=== PATIENT | male | born 1940 | race Caucasian/White ===

== ENCOUNTER 2019-10-31 20:21 | Inpatient (IN) ==
[2019-10-31] MEDS ORDERED: NITROGLYCERIN SL 0.4 MG/TAB TAB SL PRN (23:33)
[2019-10-31] MEDS ORDERED: POLYETHYLENE (MIRALAX) 17 GM PACK PO PRN (23:33)
[2019-10-31] MEDS ORDERED: ACETAMINOPHEN 325 MG TAB PO PRN (23:33)
[2019-10-31] MEDS ORDERED: ONDANSETRON INJ 2 MG/ML 2 ML VIAL IV PRN (23:33)
[2019-10-31] MEDS ORDERED: MoRPHine SULFATE 4 MG/ML 1 ML CARP\\VIAL IV PRN (23:33)
[2019-10-31] MEDS ORDERED: HYDROCODONE/ACETAMOPHEN 5/325MG TAB PO PRN (23:37)
[2019-10-31] MEDS ORDERED: GLUCOSE 40% GEL 15 GM TUBE PO PRN (23:45)
[2019-10-31] MEDS ORDERED: CARBOHYDRATES FOR HYPOGLYCEMIA PO PRN (23:45)
[2019-10-31] MEDS ORDERED: DEXTROSE 50% 50 ML SYRINGE IV PRN (23:45)
[2019-10-31] MEDS ORDERED: GLUCAGON FOR INJ 1 MG VIAL IM PRN (23:45)
[2019-10-31] MEDS ORDERED: GLUCOSE 10 TABS/TUBE PO PRN (23:45)
[2019-10-31] MEDS: HYDROmorphone INJ 0.5 MG/0.5 ML SYR IV PRN (23:48)
[2019-11-01] MEDS ORDERED: LABETALOL HCL IV 5 MG/ML 20ML IV PRN (00:07)
[2019-11-01] MEDS: INSULIN GLARGINE SOLOSTAR 100 UNITS/ML 3 ML PEN SC SCH ×2 (00:11→21:08)
[2019-11-01] MEDS: INSULIN ASPART 100 UNITS/ML 3 ML PEN SC SCH ×5 (00:12→21:09)
--- NOTE | 2019-11-01 03:06 | History and Physical Report ---
DATE OF ADMISSION: 10/31/2019 CHIEF COMPLAINT: Chest pain. HISTORY OF PRESENT ILLNESS: This 79-year-old male with past medical history significant for type 2 diabetes, hyperlipidemia, hypertension, prostate cancer metastatic to multiple sites, chronic kidney disease stage III, carpal tunnel syndrome of the right wrist presents with chest pain. The patient says he is having chest pain, all over his chest, since last 3-4 days, the pain is more on movements or when taking deep breaths or on coughing and sometimes he is also having some pins and needles sensation in his left hand which prompted him to go to [place] [facility] where workup with EKG is unremarkable. Troponin was negative. His D-dimer was slightly elevated and they did a CTA of the chest which shows no PE, but showed extensive blastic bony metastasis and was planned to admit for chest pain rule out but the patient wanted to come to [facility], so he was transferred here. Currently resting comfortably. Says the pain comes and goes. When it comes it is very severe, it shoots into the back of the chest. When he ambulates, the pain does not get worse.But when he takes deep breaths or coughs,or on specific movements it gets worse. Denies nausea. When the pain is severe, he gets some shortness of breath. He denies any no fever,or chills. Because of his chemo shots for his prostate cancer, he gets sometimes sweating and sometimes feels cold, that is a chronic thing.He has chronic tinnitus. No dizziness, no blurred vision, no earache, no runny nose, no sore throat, no loss of sense of smell or taste. No abdominal pain, No nausea, no diarrhea or constipation, no blood in the stool or black stools. Normal bladder movements. No hematuria. No swelling in the legs, no rash. Sleeps okay. Lives with his who has dementia. He says he takes care of all her medication and all the care of his . ALLERGIES: No known drug allergies. PAST MEDICAL HISTORY: As mentioned above. PAST SURGICAL HISTORY: Carpal tunnel surgery on the right side. MEDICATIONS: Currently the patient is on hydrocodone/acetaminophen 5/325 mg one tablet p.o. q. 6 hours p.r.n., metformin 1000 mg p.o. b.i.d., atorvastatin 40 mg p.o. daily, glimepiride 2 mg p.o. daily, denosumab administered 120 mg subcutaneous every 3 months, calcium plus vitamin D 1 tablet daily, multivitamins with minerals 1 tablet daily, aspirin enteric coated 81 mg p.o. daily. FAMILY HISTORY: Significant for mother of accident. Father in an accident. Sister has diabetes, aunt has diabetes. SOCIAL HISTORY: and lives with his . Former smoker, quit in 1984. Prior to this, smoked 3 packs a day for 22 years. Quit alcohol in 1984. No drug use. REVIEW OF SYMPTOMS: As per HPI. Rest of review of symptoms negative. PHYSICAL EXAMINATION: GENERAL: The patient is of moderate build, not in acute distress. HEENT: No pallor, no icterus. Extraocular muscles intact. NECK: No JVD, no neck masses. Supple. CARDIOVASCULAR: S1, S2 heard, regular rate and rhythm, no murmur, no gallop.No tenderness RESPIRATORY SYSTEM: Normal AP diameter. No accessory muscle use. No wheezing, no crackles. ABDOMEN: No point tenderness seen. Soft, bowel sounds present, nontender. No distention. CENTRAL NERVOUS SYSTEM: Cranial nerves II through XII grossly intact, nonfocal. EXTREMITIES: No edema, no erythema. LABORATORY DATA: Labs done at [facility] shows WBC 8.2, hemoglobin 11.3, hematocrit 34.8, platelets 289. PT 13.7, INR 1.1, PTT 69.9. D-dimer 657. Sodium 139, potassium 4.8, chloride 106, bicarb 24, creatinine 1.38, serum glucose 76, AST 53, ALT 38, alkaline phosphatase 72. Troponin I less than 0.015. Chest x-ray: No acute findings. CTA of the chest, no evidence of pulmonary embolism, extensive blastic bony metastasis, renal cyst. EKG: Normal sinus rhythm with rate of 80, no acute ST changes seen. QTC was 391. ASSESSMENT AND PLAN: This is a 79-year-old male with history of diabetes, hyperlipidemia with metastatic prostate cancer, presents with chest pain. 1. Chest pain: The pain is more with taking deep breath, and movements and cough. Initial troponin and EKG unremarkable. D-dimer is slightly elevated. CTA of chest, no PE, but shows extensive blastic bony metastasis mostly from the metastatic bone disease from prostate cancer. He is at home on hydrocodone/acetaminophen, which he will continue, we will placed on IV Dilaudid p.r.n. He also has some discomfort in his left hand. We will rule out acute coronary syndrome because of history of diabetes and hyperlipidemia and his age. Will do serial cardiac enzymes, echo, will keep him n.p.o. and consult cardiology in a.m. for further recommendations. 2. Diabetes. Hold his home medication, metformin and glimepiride. Place him on Lantus 5 units at bedtime and insulin sliding scale. Follow the blood sugars, follow HbA1c levels. 3. Hyperlipidemia. Continue statin. Follow lipid profile. 4. Prostate cancer: On Lupron shots q. 6 months and on Xgeva shots every 3 months. Follows with hematology/oncology and also urology. Needs close followup after discharge. 5. Hypertension. Situational? from pain? Labetalol prn and monitor. 5. Deep venous thrombosis prophylaxis: Sequential compression devices for now. 6. Disposition: Closely monitor in the med/tele. Expect discharge home and follow with family doctor. Level 1 full code. MTDD
--- NOTE | 2019-11-01 04:42 | Hospitalist Progress Note ---
Date of Service November 01, 2019 Assessment & Plan Admission and Anticipated Discharge Date Admission Date: October 31, 2019 Subjective Addendum to A/P Anemia; Baseline hb around 10. . Will follow labs CKD stage 3. Baseline Cr 1.5. Will follow labs. Results & Data Results & Data ([facility]) Vital Signs (Past 12 Hours) Vital Signs Temp Pulse Pulse Resp BP Pulse Ox 11/01/19 02:55 36.7 C 76 18 119/76 97 11/01/19 00:28 76 152/81 H 10/31/19 23:25 36.8 C 85 221/112 H 97 10/31/19 23:03 93 H 10/31/19 22:23 37.1 C 83 18 185/96 H 97
[2019-11-01 05:40] LABS: Basophils # (auto) 0.01 K/uL (0-0.2); Basophils % (auto) 0.2 %; Eosinophils # (auto) 0.26 K/uL (0-0.5); Eosinophils % (auto) 4.4 %; Hematocrit (blood only) 31.4 % (42-52); Hemoglobin 10.2 g/dL (14.0-18.0); Immature Granulocytes # (auto) 0.01 K/uL (0.00-0.02); Immature Granulocytes % (auto) 0.2 %; Lymphocytes # (auto) 1.64 K/uL (1.2-3.4); Mean Corpuscular Hgb Conc 32.5 g/dL (32-36); Mean Corpuscular Volume 89.2 fL (80-100); Mean Platelet Volume 10.2 fL (7.4-10.4); Monocytes # (auto) 0.63 K/uL (0.11-0.59); Monocytes % (auto) 10.8 %; Neutrophils # (auto) 3.31 K/uL (1.4-6.5); Neutrophils % (auto) 56.4 %; Platelet Count 275 K/uL (130-400); RDW Coefficient of Variation 15.4 % (11.5-14.5); RDW Standard Deviation 50.2 fL (36.4-46.3); Red Blood Count 3.52 M/uL (4.7-6.1); White Blood Count 5.86 K/uL (4.8-10.8)
[2019-11-01 06:01] LABS: INR 1.1 (0.9-1.1); Partial Thromboplastin Ratio 1.8; Prothrombin Time 11.5 Seconds (9.0-12.0)
[2019-11-01 06:09] LABS: Estimated Average Glucose 131 mg/dl; Hemoglobin A1C 6.2 % (4.5-5.6)
[2019-11-01 06:20] LABS: Albumin Level 3.4 gm/dl (3.4-5.0); BUN Creatinine Ratio 24.4 (10-20); Bilirubin,Total 0.2 mg/dl (0.2-1); Calcium 9.1 mg/dl (8.5-10.1); Creatinine Clr Calc Pharmacy 43.8 ml/min; Est GFR (African American) 60.6; Est GFR (Non-African American) 52.3; Magnesium 2.1 mg/dl (1.8-2.4); Potassium 4.4 mmol/L (3.5-5.1); Total Protein 6.9 gm/dl (6.4-8.2)
[2019-11-01] MEDS: ASPIRIN 81 MG ECTAB PO SCH (07:54)
[2019-11-01] MEDS: ATORVASTATIN 40 MG TAB PO SCH (07:54)
--- NOTE | 2019-11-01 12:57 | Hospitalist Progress Note ---
Date of Service November 01, 2019 Assessment & Plan (1) Chest pain: Related to bony metastasis. No evidence of cardiac etiology. Echo roughly normal. Cardiology saw patient and no further cardiac workup warranted. Remove from telemetry and continue opiates for help with supportive care. Patient prefers trial of PO Dilaudid. New start today and may require titration overnight. Stool Softener started. (2) Prostate cancer: with known metastasis. Cont supportive care here and discuss progressive mets to lungs with his oncologist, Dr. Gibbs. (3) Metastatic disease: Known, cont per Oncology. (4) DMII (diabetes mellitus, type 2): Well controlled reflected with A1C this admission of 6.2. Hold metformin and basal bolus insulin during admission. Currently at inpatient goal. (5) CKD (chronic kidney disease), stage III: Likely at baseline. Will review outpatient records more in depth. Avoid nephrotoxic substances as able. (6) DVT prophylaxis: Lovenox Discussed code status more in detail with him today and he changed his mind from Full Code to DNR/DNI. Palliative consult requested to discuss goals of care. Currently patient is very functional and takes care of his with with dementia almost solely. He is someone who will need a good transition back to PCP and help with care of himself eventually as well as help with care plans for his ultimately. Dispo- Likely to home pending PT/OT evaluations and better pain control, possibly tomorrow? [facility]ano [facility] and [facility]ticipated Discharge Date Admission Date: October 31, 2019 Subjective Feels well this am Channel Marketing Specialist discussed with me that this is noncardiac in nature and no further cardiac workup is needed Pt denies chest pain, nausea, lightheadedness, fevers, chills, changes in stools, SOB or other concerning symptoms. He reports some chronic back pain and is aware of his prostate cancer mets. He states that his home hydrocodone is not effective for him. He is tolerating food without issue. For the last 5 days, this chest pain has melissa off and on, sometimes precipitated by lying down or taking a deep breath and then will spontaneously resolve within seconds. BP was elevated last night, which he states he doesn't have HTN at baseline. He feels the BP went up after the pain came on. Review of Systems Review of Systems: All systems reviewed & are unremarkable except as noted in Subjective Physical Exam Physical Exam: CONSTITUTIONAL: WNWD, vitals as above, generally well- appearing EYES: normal conjunctivae, no scleral icterus ENT: external ear and nose normal, MMM RESPIRATORY: clear to auscultation bilaterally, no crackles, rales or wheezes, normal respiratory effort CARDIOVASCULAR: regular rate and rhythm, S1 and 2 heard without murmurs, gallop s or rubs, no JVD, no peripheral edema GASTROINTESTINAL: soft, nontender, nondistended MUSCULOSKELETAL: strength 5/5 throughout, head is normocephalic and atraumatic SKIN: warm and dry NEUROLOGIC: no facial palsy, no dysarthria. CN 2-12 grossly intact, normal cognition, normal speech, no tremor PSYCHIATRIC: alert cooperative and oriented to person, place and time. Results & Data Results & Data ([facility]) Vital Signs (Past 12 Hours) Vital Signs Temp Pulse Pulse Resp BP Pulse Ox 11/01/19 11:24 36.6 C 73 16 168/91 H 96 11/01/19 09:00 73 11/01/19 06:19 36.6 C 72 18 162/95 H 98 11/01/19 02:55 36.7 C 76 18 119/76 97 Laboratory Results Short CBC 11/01/19 Range/Units 05:22 WBC 5.86 (4.8-10.8) K/uL Hgb 10.2 L (14.0-18.0) g/dL Hct 31.4 L (42-52) % Plt Count 275 (130-400) K/uL BMP 11/01/19 05:22 Sodium 139 Potassium 4.4 Chloride 108 H Carbon Dioxide 24 BUN 32 H Creatinine 1.30 Glucose 66 L Calcium 9.1 Cardiac Enzymes 10/31/19 11/01/19 11/01/19 Range/Units 23:57 05:22 11:14 Troponin I < 0.015 < 0.015 < 0.015 (0-0.045) ng/ml Liver Function 11/01/19 11/01/19 Range/Units 05:22 05:22 Total Bilirubin 0.2 (0.2-1) mg/dl Direct Bilirubin < 0.1 (0-0.2) mg/dl AST 44 H (15-37) U/L ALT 28 (12-78) U/L Alkaline Phosphatase 61 (45-117) U/L Albumin 3.4 (3.4-5.0) gm/dl Medications Administered Current Inpatient Medications Acetaminophen (Acetaminophen 325 Mg Tab) 650 mg PO Q4H PRN PRN Reason: Pain or Fever Stop: 11/30/19 23:32 Aspirin (Aspirin 81 Mg Ectab) 81 mg PO DAILY CARMEN Stop: 12/01/19 08:59 Last Admin: 11/01/19 07:54 Dose: 81 mg Documented by: Atorvastatin Calcium (Atorvastatin 40 Mg Tab) 40 mg PO DAILY CARMEN Stop: 12/01/19 08:59 Last Admin: 11/01/19 07:54 Dose: 40 mg Documented by: Dextrose (Dextrose 50% 50 Ml Syringe) 25 - 50 ml IV UD PRN; Protocol PRN Reason: Hypoglycemia Protocol Stop: 11/30/19 23:44 Docusate Sodium (Docusate Sodium 100 Mg Cap) 100 mg PO BID CARMEN Stop: 12/01/19 20:59 Glucagon (Glucagon For Inj 1 Mg Vial) 1 mg IM UD PRN; Protocol PRN Reason: Hypoglycemia Protocol Stop: 11/30/19 23:44 Glucose (Glucose 40% Gel 15 Gm Tube) 15 - 30 gm PO UD PRN; Protocol PRN Reason: Hypoglycemia Protocol Stop: 11/30/19 23:44 Glucose (Glucose 10 Tabs/Tube) 4 - 8 tabs PO UD PRN; Protocol PRN Reason: Hypoglycemia Protocol Stop: 11/30/19 23:44 Hydromorphone HCl (Hydromorphone Inj 0.5 Mg/0.5 Ml Syr) 0.5 mg IV Q3H PRN PRN Reason: Pain Stop: 11/14/19 23:36 Last Admin: 10/31/19 23:48 Dose: 0.5 mg Documented by: Hydromorphone HCl (Hydromorphone Hcl 2 Mg Tab) 2 mg PO Q4H PRN PRN Reason: Pain Stop: 11/15/19 12:48 Insulin Aspart (Insulin Aspart 100 Units/Ml 3 Ml Pen) 0 units SC Q6 CARMEN Stop: 12/01/19 00:00 Last Admin: 11/01/19 06:06 Dose: Not Given Documented by: Insulin Glargine (Insulin Glargine Solostar 100 Units/Ml 3 Ml Pen) 5 units SC HS [facility] Stop: 11/30/19 23:32 Last Admin: 11/01/19 00:11 Dose: 5 units Documented by: Miscellaneous (Carbohydrates For Hypoglycemia ) 15 - 30 gm PO UD PRN PRN Reason: Hypoglycemia Treatment Stop: 11/30/19 23:44 Miscellaneous Information (Patient's Allergy Info Needs Entered) 1 ea N/A Q30M CARMEN Stop: 12/01/19 13:29 Ondansetron HCl (Ondansetron Inj 2 Mg/Ml 2 Ml Vial) 4 mg IV Q6H PRN PRN Reason: Nausea Stop: 11/30/19 23:32 Polyethylene Glycol (Polyethylene (Miralax) 17 Gm Pack) 17 gm PO DAILY PRN PRN Reason: Constipation Stop: 11/30/19 23:32
[2019-11-01] MEDS: HYDROmorphone HCL 2 MG TAB PO PRN (13:21)
[2019-11-01] MEDS ORDERED: PATIENT'S ALLERGY INFO NEEDS ENTERED SCH (13:30)
--- NOTE | 2019-11-01 13:54 | Cardiology Consultation ---
Date of Consultation November 01, 2019 Assessment & Plan (1) Chest pain: The character of the patient's chest discomfort does not suggest angina, it is worse with deep inspiration, and twisting. He has no pericardial effusion noted on echocardiogram, normal LV wall motion, serial troponin I levels have been undetectable x3. His discomfort is likely explained by the abnormal rib vertebral findings noted on recent CT, nuclear medicine study consistent with metastatic disease. No further cardiac work-up is indicated at this time. 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 This typically does not become an issue unless a left-sided pacemaker is attempted. History of Present Illness Attending Physician: Kristine Solano, History of Present Illness Zafra Borjas, is a 79 year old male seen in cardiology consultation per the request of Dr. Bey for the evaluation of chest pain. The patient describes chest discomfort of 5 to 6 days duration across his chest. It is worse with taking deep breath, or even with a twisting motion of his trunk. A recent CT angiogram of the chest performed at [facility] on 08/03/19 revealed diffuse sclerotic changes the bony structures of the ribs, scapula, thoracic spine, and left humerus consistent with metastatic prostate cancer. A nuclear medicine whole-body bone scan performed at [facility] on 09/20/2019 revealed interval increase in uptake of the left proximal humerus and nonspecific mild heterogenous uptake of the ribs. This was new compared to a prior nuclear medicine study in 2018. EKG performed this morning at 6:47 AM revealed normal sinus rhythm, normal EKG, as was the one performed last evening at 2342. Echocardiogram performed 11/01/2019 revealed mild concentric left ventricular hypertrophy with mild aortic valve regurgitation mild tricuspid valve regurgitation. The LVEF was normal, 60-65%. The ascending aorta was mildly enlarged at 4.2 cm. No regional wall motion abnormalities were noted, no pericardial effusion. CT angiogram performed at [place] revealed no evidence of pulmonary emboli, per the radiology report widespread blastic bone disease visualized in the vertebrae. 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 Home Medications Home Medications Medication Instructions Recorded Confirmed Type Aspirin Low Dose 81 mg PO DAILY 10/31/19 10/31/19 History atorvastatin [Lipitor] 40 mg PO DAILY 10/31/19 10/31/19 History Calcium + D 1 tab PO BID 11/01/19 11/01/19 History denosumab [Xgeva] 120 mg SUBCUT USEASDIRECTD 11/01/19 11/01/19 History glimepiride 2 mg PO QAM 11/01/19 11/01/19 History hydrocodone-acetaminophen 1 tab PO Q6H PRN 11/01/19 11/01/19 History metformin 1,000 mg PO BID 11/01/19 11/01/19 History multivitamin with minerals 1 tab PO DAILY 11/01/19 11/01/19 History Patient History Social History Smoking Status: Former smoker Smoking End Date: 1984; Second Hand Exposure: No; Hx Alcohol Use: No Hx Substance Use: No Preferred Language: Occitan Communication Ability: Effective Chief Technologist Required: No Beliefs That Will Affect Care: None marital status: Current Living Situation: Spouse Feels Safe at Home: Yes Safety Concerns: Feels Safe At This Time Review of Systems Review of Systems: All systems reviewed & are unremarkable except as noted in HPI & below Physical Exam Physical Exam: Temp Pulse Resp BP Pulse Ox 36.6 C 73 16 168/91 H 96 11/01/19 11:24 11/01/19 11:24 11/01/19 11:24 11/01/19 11:24 11/01/19 11:24 Constitutional: WD/WN, vitals as above Respiratory: normal respiratory effort, lungs clear to auscultation Cardiovascular: RRR, no murmur, no edema Gastrointestinal (Abdomen): normal bowel sounds, soft, nontender, no hepatosplenomegaly Neurologic: PERRL, EOMI, accommodation nl, no face palsy, no dysarthria Results & Data ([facility]) Vital Signs (Past 12 Hours) Vital Signs Temp Pulse Pulse Resp BP Pulse Ox 11/01/19 11:24 36.6 C 73 16 168/91 H 96 11/01/19 09:00 73 11/01/19 06:19 36.6 C 72 18 162/95 H 98 11/01/19 02:55 36.7 C 76 18 119/76 97 Laboratory Results Cardiac Enzymes 10/31/19 11/01/19 11/01/19 Range/Units 23:57 05:22 05:22 AST 44 H (15-37) U/L Troponin I < 0.015 < 0.015 (0-0.045) ng/ml 11/01/19 Range/Units 11:14 AST (15-37) U/L Troponin I < 0.015 (0-0.045) ng/ml Coagulation 11/01/19 Range/Units 05:22 PT 11.5 (9.0-12.0) Seconds APTT 51.0 H* (21.0-31.0) Seconds Lipids 11/01/19 Range/Units 05:22 Triglycerides 141 (0-150) mg/dl Cholesterol 133 (0-200) mg/dl HDL Cholesterol 31 mg/dl Cholesterol/HDL Ratio 4 CBC 11/01/19 Range/Units 05:22 WBC 5.86 (4.8-10.8) K/uL RBC 3.52 L (4.7-6.1) M/uL Hgb 10.2 L (14.0-18.0) g/dL Hct 31.4 L (42-52) % Plt Count 275 (130-400) K/uL Neut # (Auto) 3.31 (1.4-6.5) K/uL Lymph # (Auto) 1.64 (1.2-3.4) K/uL [place] # (Auto) 0.63 H (0.11-0.59) K/uL Eos # (Auto) 0.26 (0-0.5) K/uL Baso # (Auto) 0.01 (0-0.2) K/uL Comprehensive Metabolic Panel 11/01/19 11/01/19 Range/Units 05:22 05:22 Sodium 139 (136-145) mmol/L Potassium 4.4 (3.5-5.1) mmol/L Chloride 108 H (98-107) mmol/L Carbon Dioxide 24 (21-32) mmol/L BUN 32 H (7-18) mg/dl Creatinine 1.30 (0.6-1.4) mg/dl Glucose 66 L (70-99) mg/dl Calcium 9.1 (8.5-10.1) mg/dl Direct Bilirubin < 0.1 (0-0.2) mg/dl AST 44 H (15-37) U/L ALT 28 (12-78) U/L Alkaline Phosphatase 61 (45-117) U/L Total Protein 6.9 (6.4-8.2) gm/dl Albumin 3.4 (3.4-5.0) gm/dl Intake and Output 10/31/19 11/01/19 11/01/19 22:59 06:59 14:59 Other: Other Intake Source npo Weight 74.389 kg 74.3 kg
[2019-11-01] MEDS ORDERED: Nursing to Pharmacy Communication SCH (16:45)
--- NOTE | 2019-11-01 19:17 | Electrocardiogram Report ---
Test Reason : Blood Pressure : / mmHG Vent. Rate : 071 BPM Atrial Rate : 071 BPM P-R Int : 156 ms QRS Dur : 088 ms QT Int : 414 ms P-R-T Axes : 009 041 052 degrees QTc Int : 449 ms Normal sinus rhythm Normal ECG When compared with ECG of 31-OCT-2019 23:42, (unconfirmed) No significant change was found Confirmed by Rodrick Bonilla ([id number]) on 11/01/2019 7:16:41 PM Referred By: Rg Bey Confirmed By:Diego Bonilla
[2019-11-01] MEDS: HYDROmorphone INJ 0.5 MG/0.5 ML SYR IV PRN (19:43)
[2019-11-01] MEDS: DOCUSATE SODIUM 100 MG CAP PO SCH (19:46)
[2019-11-02] MEDS: HYDROmorphone INJ 0.5 MG/0.5 ML SYR IV PRN (04:56)
[2019-11-02 06:35] LABS: Hematocrit (blood only) 32.6 % (42-52); Hemoglobin 10.6 g/dL (14.0-18.0); Mean Corpuscular Hemoglobin 29.1 pg (25-34); Mean Corpuscular Hgb Conc 32.5 g/dL (32-36); Mean Corpuscular Volume 89.6 fL (80-100); Mean Platelet Volume 10.5 fL (7.4-10.4); Platelet Count 293 K/uL (130-400); RDW Coefficient of Variation 15.4 % (11.5-14.5); RDW Standard Deviation 50.7 fL (36.4-46.3); Red Blood Count 3.64 M/uL (4.7-6.1); White Blood Count 6.58 K/uL (4.8-10.8)
[2019-11-02 06:53] LABS: BUN Creatinine Ratio 20.8 (10-20); Calcium 8.4 mg/dl (8.5-10.1); Creatinine Clr Calc Pharmacy 38.5 ml/min; Est GFR (African American) 51.8; Est GFR (Non-African American) 44.7
[2019-11-02] MEDS: HYDROmorphone HCL 2 MG TAB PO PRN ×2 (07:43→14:38)
[2019-11-02] MEDS: ASPIRIN 81 MG ECTAB PO SCH (07:44)
[2019-11-02] MEDS: ATORVASTATIN 40 MG TAB PO SCH (07:44)
[2019-11-02] MEDS: DOCUSATE SODIUM 100 MG CAP PO SCH (07:44)
[2019-11-02] MEDS: INSULIN ASPART 100 UNITS/ML 3 ML PEN SC SCH ×2 (08:17→12:40)
[2019-11-02] MEDS ORDERED: ENOXAPARIN INJ 40 MG/0.4 ML SYR SQ SCH (09:00)
--- NOTE | 2019-11-02 13:38 | Discharge Summary ---
Date of Service November 02, 2019 Admission HPI Per Admitting Provider HISTORY OF PRESENT ILLNESS: This 79-year-old male with past medical history significant for type 2 diabetes, hyperlipidemia, hypertension, prostate cancer metastatic to multiple sites, chronic kidney disease stage III, carpal tunnel syndrome of the right wrist presents with chest pain. The patient says he is having chest pain, all over his chest, since last 3-4 days, the pain is more on movements or when taking deep breaths or on coughing and sometimes he is also having some pins and needles sensation in his left hand which prompted him to go to [facility] where workup with EKG is unremarkable. Troponin was negative. His D-dimer was slightly elevated and they did a CTA of the chest which shows no PE, but showed extensive blastic bony metastasis and was planned to admit for chest pain rule out but the patient wanted to come to [facility], so he was transferred here. Currently resting comfortably. Says the pain comes and goes. When it comes it is very severe, it shoots into the back of the chest. When he ambulates, the pain does not get worse.But when he takes deep breaths or coughs,or on specific movements it gets worse. Denies nausea. When the pain is severe, he gets some shortness of breath. He denies any no fever,or chills. Because of his chemo shots for his prostate cancer, he gets sometimes sweating and sometimes feels cold, that is a chronic thing.He has chronic tinnitus. No dizziness, no blurred vision, no earache, no runny nose, no sore throat, no loss of sense of smell or taste. No abdominal pain, No nausea, no diarrhea or constipation, no blood in the stool or black stools. Normal bladder movements. No hematuria. No swelling in the legs, no rash. Sleeps okay. Lives with his who has dementia. He says he takes care of all her medication and all the care of his . Admission Exam Per Admitting Provider PHYSICAL EXAMINATION: GENERAL: The patient is of moderate build, not in acute distress. HEENT: No pallor, no icterus. Extraocular muscles intact. NECK: No JVD, no neck masses. Supple. CARDIOVASCULAR: S1, S2 heard, regular rate and rhythm, no murmur, no gallop.No tenderness RESPIRATORY SYSTEM: Normal AP diameter. No accessory muscle use. No wheezing, no crackles. ABDOMEN: No point tenderness seen. Soft, bowel sounds present, nontender. No distention. CENTRAL NERVOUS SYSTEM: Cranial nerves II through XII grossly intact, nonfocal. EXTREMITIES: No edema, no erythema. Principal Diagnosis Atypical chest pain Prostate cancer with progressed metastatic disease Discharge Exam CONSTITUTIONAL: WNWD, vitals as above, generally well-appearing EYES: normal conjunctivae, no scleral icterus ENT: external ear and nose normal, MMM RESPIRATORY: clear to auscultation bilaterally, no crackles, rales or wheezes, normal respiratory effort CARDIOVASCULAR: regular rate and rhythm, S1 and 2 heard without murmurs, gallops or rubs, no JVD, no peripheral edema GASTROINTESTINAL: soft, nontender, nondistended MUSCULOSKELETAL: strength 5/5 throughout, head is normocephalic and atraumatic SKIN: warm and dry NEUROLOGIC: no facial palsy, no dysarthria. CN 2-12 grossly intact, normal cognition, normal speech, no tremor PSYCHIATRIC: alert cooperative and oriented to person, place and time. Discharge Data Allergies Allergy/AdvReac Type Severity Reaction Status Date / Time No Known Allergies Allergy Verified 11/02/19 02:21 Consultations 10/31/19 23:33 Consult Case Management - Discharge Planning Routine 11/01/19 08:00 Consult Cardiology Routine 11/01/19 12:45 Consult Palliative Care Routine Hospital Course (1) Atypical chest pain: (2) Prostate cancer: (3) Metastatic disease: 79-year-old man with known history of metastatic prostate cancer presented to [facility] with acute chest pain. Chest pain had been going on for 3 to 4 days and was left-sided, occasionally pleuritic and sometimes reproducible with movement or palpation. Work-up included a negative troponin positive d-dimer negative CTA of the chest for pulmonary embolism and an EKG without ischemic changes. This CT of the chest did show extensive blastic bony metastasis. The patient requested to come to [facility] so was transferred and admitted to the hospitalist team. Serial troponin enzymes were ordered and negative overnight. Cardiology was consulted and recommended that the character of the patient's chest discomfort did not suggest angina, as it is worse with deep inspiration, and twisting. He had no pericardial effusion noted on echocardiogram with a normal LV wall motion and serial troponin levels were undetectable x3. His discomfort was likely explained by the abnormal rib vertebral findings noted on CT scan consistent with metastatic disease. No further cardiac work-up was indicated. His pain remained uncontrolled on the hydrocodone he had been prescribed as outpatient and we took another day in the hospital to trial another medication. He was given Dilaudid 2 mg p.o. every 2 hours as needed and this appeared to be effective. He was counseled to touch base with oncology and continue to titrate or change this medication as needed. He was given stool softeners and advised on constipation as a side effect of chronic opiate use. He verbalized understanding with intent to comply. At time of discharge she was hemodynamically stable and afebrile and tolerating p.o. He was mentating and ambulating at baseline and was sent home in guarded condition secondary to his stage IV cancer. Close primary care and oncology follow-up was recommended. Total Time Total Time Spent Total Time Spent (In Minutes): 60 Total Time Includes: Examination of the Patient, Discharge Planning, Medication Reconciliation and Communication With Other Providers Discharge Plan Discharge Items Patient Disposition: Home - Self-Care Reason For Visit: CHEST PAIN Discharge Diagnosis: Atypical chest pain Prostate cancer with progressed metastatic disease Condition on Discharge: Fair Activity: Resume your previous activity Non-emergency contact: Primary Care Provider and Oncologist Call non-emergency contact if: you have any medication questions, your symptoms worsen, your pain is not controlled, your pain is worsening, your pain is unusual for you, your pain is concerning for you and you have a fever Follow-up/Referrals: Dawood Ford MD [Primary Care Provider] - 11/08/19 2:40 pm (Date & Time 11/08/2019 2:40 PM Provider Dawood Ford MD Department Internal Medicine [facility] ) Diet: Carb Consistent or DM2 Addtl Attending Provider Instructions: Please take all medications as instructed on discharge list below. Please touch base with your oncologist regarding titration of opiate pain medications. You may be in more, less, or a different medication altogether. Please also discuss with your oncologist your metastasis recently found within your lungs. It is recommended that you have a primary care follow-up to ensure you are doing well after discharge to home. Please follow-up with Dr. Mccormick at the [place] time listed above. It was a pleasure taking care of you! Please call if you have any questions or problems. You can reach a [facility] hospitalist on duty at [facility] 24 hours a day by calling [phone]. Take care of yourself. Kristine Solano DO [facility] Hospitalist Pending Studies at Discharge: No Stand-Alone Forms: My [facility], Smoking Cessation Medications and DC Order Prescriptions: New hydromorphone 2 mg Tablet 2 mg PO Q4H PRN (Reason: pain) Qty: 20 RF: 0 docusate sodium 100 mg Capsule 100 mg PO BID PRN (Reason: constipation) Qty: 60 RF: 0 Continued Aspirin Low Dose 81 mg 81 mg PO DAILY RF: 0 atorvastatin [Lipitor] 40 mg Tablet 40 mg PO DAILY RF: 0 glimepiride 2 mg Tablet 2 mg PO QAM RF: 0 metformin 1,000 mg Tablet 1,000 mg PO BID RF: 0 Xgeva 120 mg/1.7 mL (70 mg/mL) Solution 120 mg SUBCUT USEASDIRECTD RF: 0 Calcium + D 500 mg 1 tab PO BID RF: 0 multivitamin with minerals 1 tab 1 tab PO DAILY RF: 0 Discontinued hydrocodone-acetaminophen 5 mg 1 tab PO Q6H PRN (Reason: Pain) RF: 0 Discharge Orders: Discharge Order (Routine); Ordered 11/02/19 Ordered By: Kristine Toledo/Other Patient Handouts: Managing Type 2 Diabetes Admission Data Admit Date/Time: 11/01/19 12:47 Attending Provider: Kristine Solano Admit Provider: Rg Bey Primary Care Provider: Dawood Ford Other Providers: Sebastian Perez ; Fausto Caballero ; Guilherme Cosby ; Aydin Causey ; Glen Snow ; Gadiel Rawls ; Malathi Bonilla ; Chery Tovar ; Kavon Wilson ; Maritza Quinn
--- NOTE | 2019-11-02 15:39 | Palliative Care Consultation ---
Date of Consultation November 02, 2019 Assessment & Plan (1) Goals of care, counseling/discussion: Patient is a 79-year-old male with a past medical history significant for diabetes-A1c 6.2, hypertension/HLD, metastatic prostate cancer with extensive mets to the bone, CKD stage III who presented with a 3-day history of chest pain. Chest pain was aggravated by movement and cough. Patient's troponins were negative, he had an elevated d-dimer-CTA was done that was negative for PE. -Patient seen and examined in room 250, no family at bedside. -Patient reports his pain is well controlled with p.o. Dilaudid, he required 2 doses of IV Dilaudid 0.5 mg and 2 doses of p.o. Dilaudid 2 mg each in the past 24 hours. -Patient is currently receiving treatment for his metastatic prostate cancer- Diagnosed 3 years ago,stated his current treatment is keeping his disease at bay per his understanding. Patient follows with Dr. Gibbs. -Patient is -his has significant dementia, they have 5 children of which four live nearby. They also have 13 grandchildren and 9 great-grandchildren. Family is very involved in assisting with care of patient and his . -Patient changed his CODE STATUS to DNR-a POLST form was completed -stating DNR, limited interventions, limited trial of IV fluids. Patient would want his children to help make medical decisions if he were unable to as his has significant dementia. Patient's daughter, Janel Hermosillo, was placed on his POLST form as his primary contact. -Patient reports he has a good appetite-has gained weight since his diagnosis -Diabetes-A1c 6.2-patient on low-dose glyburide, does report some symptoms of hypoglycemia occasionally for which he will take a small piece of candy. Given patient's age would recommend discontinuing the glyburide to avoid hypoglycemia, he may have adequate control on metformin alone. -Patient is planned for discharge home today, Dr. Gibbs or his PCP will likely be able to continue prescribing his pain medication as needed (2) Atypical chest pain: (3) Prostate cancer: (4) Metastatic disease: (5) DMII (diabetes mellitus, type 2): History of Present Illness Reason for Consultation: Discuss goals of care, complete a POLST form Requesting Physician: Dr. Solano Attending Physician: Kristine Solano, DO History of Present Illness Patient is a 79-year-old male with a past medical history significant for diabetes-A1c 6.2, hypertension/HLD, metastatic prostate cancer with extensive mets to the bone, CKD stage III who presented with a 3-day history of chest pain. Chest pain was aggravated by movement and cough. Patient's troponins were negative, he had an elevated d-dimer-CTA was done that was negative for PE. -Patient seen and examined in room 250, no family at bedside. -Patient reports his pain is well controlled with p.o. Dilaudid, he required 2 doses of IV Dilaudid 0.5 mg and 2 doses of p.o. Dilaudid 2 mg each in the past 24 hours. -Patient is currently receiving treatment for his metastatic prostate cancer- Diagnosed 3 years ago,stated his current treatment is keeping his disease at bay per his understanding. Patient follows with Dr. Gibbs. -Patient is -his has significant dementia, they have 5 children of which four live nearby. They also have 13 grandchildren and 9 great- grandchildren. Family is very involved in assisting with care of patient and his . -Patient changed his CODE STATUS to DNR-a POLST form was completed -stating DNR, limited interventions, limited trial of IV fluids. Patient would want his children to help make medical decisions if he were unable to as his has significant dementia. Patient's daughter, Janel Hermosillo, was placed on his POLST form as his primary contact. -Patient reports he has a good appetite-has gained weight since his diagnosis -Diabetes-A1c 6.2-patient on low-dose glyburide, does report some symptoms of hypoglycemia occasionally for which he will take a small piece of candy. Given patient's age would recommend discontinuing the glyburide to avoid hypoglycemia, he may have adequate control on metformin alone. -Patient is planned for discharge home today, Dr. Gibbs or his PCP will likely be able to continue prescribing his pain medication as needed Allergies Allergy/AdvReac Type Severity Reaction Status Date / Time No Known Allergies Allergy Verified 11/02/19 02:21 Home Medications Home Medications Medication Instructions Recorded Confirmed Type Aspirin Low Dose 81 mg PO DAILY 10/31/19 10/31/19 History atorvastatin [Lipitor] 40 mg PO DAILY 10/31/19 10/31/19 History Calcium + D 1 tab PO BID 11/01/19 11/01/19 History Xgeva 120 mg SUBCUT USEASDIRECTD 11/01/19 11/01/19 History metformin 1,000 mg PO BID 11/01/19 11/01/19 History multivitamin with minerals 1 tab PO DAILY 11/01/19 11/01/19 History docusate sodium 100 mg PO BID PRN #60 cap 11/02/19 Rx hydromorphone 2 mg PO Q4H PRN #20 tab 11/02/19 Rx Patient History Social History Smoking Status: Former smoker Smoking End Date: 1984; Second Hand Exposure: No; Hx Alcohol Use: No Hx Substance Use: No Preferred Language: Maltese Communication Ability: Effective Financial Representative Required: No Beliefs That Will Affect Care: None marital status: Current Living Situation: Spouse Feels Safe at Home: Yes Safety Concerns: Feels Safe At This Time Review of Systems Review of Systems: Patient denies fever, chills, chest pain, shortness of breath, or abdominal pain Positive for chest [id number] on current pain medication Physical Exam Physical Exam: PE: Patient awake and alert, no acute distress HEENT: EOMI, hearing within normal limits Respirations: Clear breath sounds, unlabored CV: Regular rate, no edema Abdomen: Soft, nontender Extremities: Full range of motion Neuro: Alert and oriented x4 Results & Data ([facility]) Vital Signs (Past 12 Hours) Vital Signs Temp Pulse Resp BP BP Pulse Ox 11/02/19 13:00 98.2 F 78 18 128/77 96 11/02/19 09:59 128/77 11/02/19 07:05 98.2 F 78 18 183/93 H 96 PG Care Time/CCT Total # of Minutes Spent Total Time Spent with Patient: Total time spent 55 minutes with greater than 50% of that time spent at bedside discussing patient's goals of care as well as outpatient follow-up. POLST form completed Coding Level of Care Code 51461 Inpt Consult Level 2 Diagnoses Goals of care, counseling/discussion Z71.89 Atypical chest pain R07.89 Prostate cancer C61 Metastatic disease C79.9 DMII (diabetes mellitus, type 2) E11.9 Time Spent (min) 55
== END 2019-11-02 15:05 | disposition home or self-care (01) | DRG 543 ==
LOC: 2W → SUATTDRO 22:21

== ENCOUNTER 2019-11-13 12:28 | Inpatient (IN) ==
[2019-11-13] MEDS ORDERED: SODIUM CHLORIDE 0.9% 500 ML IV SCH (13:00)
--- NOTE | 2019-11-13 13:07 | Emergency Department Note ---
History of Present Illness General Chief complaint: Constipation Stated complaint: ABD PAIN Time Seen by Provider: 11/13/19 12:49 Source: patient Mode of arrival: ambulatory Limitations: no limitations History of Present Illness Provider complaint: Generalized weakness This is a 79-year-old male who presents to the ED with a chief complaint of generalized weakness as well as abdominal bloating and pain is his chest. The patient had the chest pain and was seen in the hospital last week. His pain was not felt to be cardiac in nature. He states that his pain is not improved. He states that it is worse when he moves or if he coughs. The patient states that he has abdominal bloating. Again it began 5 or 6 days ago. He states that his last normal bowel movement was 2 days ago. He states that he has not been able to walk for the past 36 hours. He states that he is becoming progressively globally weaker. 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 He is on morphine chronically at home. His last dose was at 10 AM. No other complaints at this time. When I was seeing the patient, he states that he felt like he had to move his bowels but needed help getting to the bathroom. Home Medications Home Medications Medication Instructions Recorded Confirmed Type atorvastatin [Lipitor] 40 mg PO DAILY 10/31/19 11/13/19 History Xgeva 120 mg SUBCUT USEASDIRECTD 11/01/19 11/13/19 History metformin 1,000 mg PO BID 11/01/19 11/13/19 History docusate sodium 100 mg PO BID PRN #60 cap 11/02/19 11/13/19 Rx aspirin [Aspir-81] 81 mg PO DAILY 11/13/19 11/13/19 History calcium carbonate-vitamin D3 1 tab PO BID 11/13/19 11/13/19 History [Calcium 500 + D (D3)] hydromorphone [Dilaudid] 4 mg PO Q4 PRN 11/13/19 11/13/19 History morphine [MS Contin] 30 mg PO Q12 11/13/19 11/13/19 History multivitamin 1 tab PO DAILY 11/13/19 11/13/19 History Allergies Allergy/AdvReac Type Severity Reaction Status Date / Time No Known Allergies Allergy Verified 11/02/19 02:21 Past Med/Surg History Social History (Reviewed 11/13/19 @ 13:04 by NANCY Gunter Smoking Status: Never smoker Tobacco Type: Cigarettes Second Hand Exposure: No; Hx Alcohol Use: No Hx Substance Use: No Preferred Language: Nigerian Communication Ability: Effective Storm Window 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 Required: No Beliefs That Will Affect Care: None marital status: Current Living Situation: Spouse Feels Safe at Home: Yes Assistive Devices: Glasses Review of Systems A total of 10 systems reviewed and were otherwise negative Physical Exam Vital Signs Vital Signs - 24 hr 11/13/19 12:58 Temperature 36.9 C Temperature Source Oral Pulse Rate 99 H Respiratory Rate 20 Respiratory Depth Normal Blood Pressure 141/96 H Blood Pressure Mean 111 Blood Pressure Position Sitting Pulse Oximetry 96 Oxygen Delivery Method Room Air Sepsis Recent Fever Within 48 Hours No Sepsis New/Unexplained Change in Mental Status No Sepsis Action Taken by Nursing No Action Required CONSTITUTIONAL/VITAL SIGNS: Reviewed / noted above. GENERAL: Non-toxic in appearance. INTEGUMENTARY: Warm, dry, and [place]. HEAD: Normocephalic. EYES: without scleral icterus or trauma. ENT/OROPHARYNX: clear and moist. LYMPHADENOPATHY/NECK: Is supple without lymphadenopathy or meningismus. RESPIRATORY: Lungs clear and equal. CARDIOVASCULAR: Regular rate and rhythm. GI/ABDOMEN: Soft and nontender. No organomegaly or pulsatile mass. No rebound or guarding. Normal bowel sounds. EXTREMITIES: Warm and well perfused. BACK: No CVA tenderness. NEUROLOGICAL: Intact without focal deficits. Generalized weakness. The patient was not able to pick his legs up off the bed. PSYCHIATRIC: normal affect. MUSCULOSKELETAL: Normally developed with good muscle tone. TRIAGE NURSING DOCUMENTATION REVIEWED. Course Administered Medications Discontinued Medications Sodium Chloride (Nss) 500 mls @ 999 mls/hr IV .Q31M CARMEN Stop: 11/13/19 13:30 Last Infusion: 11/13/19 13:57 Dose: 0 mls/hr Documented by: [id number] Admin: 11/13/19 13:21 Dose: 999 mls/hr Documented by: [id number] Medical Decision Making Differential Diagnosis Differential includes acute coronary syndrome, myocardial infarction, CVA, TIA, anemia, infection, pneumonia, UTI, pyelonephritis, poor nutrition, dehydration, electrolyte disturbance,hypoglycemia. Medical Records Attestation: I reviewed the patient's medical records. Home Medications Current Medication List: was personally reviewed by me Laboratory Data Attestation: I reviewed the patient's lab results. Result diagrams: 11/13/19 11:47 11/13/19 11:47 Lab Results 11/13/19 11/13/19 11/13/19 Range/Units 11:47 11:47 11:47 WBC 14.47 H (4.8-10.8) K/uL RBC 3.68 L (4.7-6.1) M/uL Hgb 10.7 L (14.0-18.0) g/dL Hct 33.0 L (42-52) % MCV 89.7 (80-100) fL MCH 29.1 (25-34) pg MCHC 32.4 (32-36) g/dL RDW Std Deviation 50.1 H (36.4-46.3) fL RDW Coeff of Dilma 15.4 H (11.5-14.5) % Plt Count 343 (130-400) K/uL MPV 11.3 H (7.4-10.4) fL Immature Gran % (Auto) 0.1 % Neut % (Auto) 84.3 % Lymph % (Auto) 8.6 % [place] % (Auto) 5.9 % Eos % (Auto) 1.0 % Baso % (Auto) 0.1 % Neut # (Auto) 12.18 H (1.4-6.5) K/uL Lymph # (Auto) 1.25 (1.2-3.4) K/uL [place] # (Auto) 0.86 H (0.11-0.59) K/uL Eos # (Auto) 0.14 (0-0.5) K/uL Baso # (Auto) 0.02 (0-0.2) K/uL Immature Gran # (Auto) 0.02 (0.00-0.02) K/uL PT Cancelled INR Cancelled APTT Cancelled PTT Ratio Cancelled Sodium 136 (136-145) mmol/L Potassium 4.4 (3.5-5.1) mmol/L Chloride 103 (98-107) mmol/L Carbon Dioxide 23 (21-32) mmol/L Anion Gap 10.0 (3-11) BUN 38 H (7-18) mg/dl Creatinine 1.56 H (0.6-1.4) mg/dl Est Cr Clr Drug Dosing 36.5 ml/min Est GFR ( Amer) 48.6 Est GFR (Non-Af Amer) 41.9 BUN/Creatinine Ratio 24.5 H (10-20) Glucose 119 H (70-99) mg/dl Calcium 8.9 (8.5-10.1) mg/dl Total Bilirubin 0.4 (0.2-1) mg/dl AST 95 H (15-37) U/L ALT 42 (12-78) U/L Alkaline Phosphatase 91 (45-117) U/L Troponin I < 0.015 (0-0.045) ng/ml Total Protein 7.8 (6.4-8.2) gm/dl Albumin 3.2 L (3.4-5.0) gm/dl Globulin 4.6 H (2.5-4.0) gm/dl Albumin/Globulin Ratio 0.7 L (0.9-2) Lipase 113 (73-393) U/L 11/13/19 Range/Units 13:45 WBC (4.8-10.8) K/uL RBC (4.7-6.1) M/uL Hgb (14.0-18.0) g/dL Hct (42-52) % MCV (80-100) fL MCH (25-34) pg MCHC (32-36) g/dL RDW Std Deviation (36.4-46.3) fL RDW Coeff of Dilma (11.5-14.5) % Plt Count (130-400) K/uL MPV (7.4-10.4) fL Immature Gran % (Auto) % Neut % (Auto) % Lymph % (Auto) % [place] % (Auto) % Eos % (Auto) % Baso % (Auto) % Neut # (Auto) (1.4-6.5) K/uL Lymph # (Auto) (1.2-3.4) K/uL [place] # (Auto) (0.11-0.59) K/uL Eos # (Auto) (0-0.5) K/uL Baso # (Auto) (0-0.2) K/uL Immature Gran # (Auto) (0.00-0.02) K/uL PT 11.8 INR 1.1 APTT 57.7 H* PTT Ratio 2.1 Sodium (136-145) mmol/L Potassium (3.5-5.1) mmol/L Chloride (98-107) mmol/L Carbon Dioxide (21-32) mmol/L Anion Gap (3-11) BUN (7-18) mg/dl Creatinine (0.6-1.4) mg/dl Est Cr Clr Drug Dosing ml/min Est GFR ( Amer) Est GFR (Non-Af Amer) BUN/Creatinine Ratio (10-20) Glucose (70-99) mg/dl Calcium (8.5-10.1) mg/dl Total Bilirubin (0.2-1) mg/dl AST (15-37) U/L ALT (12-78) U/L Alkaline Phosphatase (45-117) U/L Troponin I (0-0.045) ng/ml Total Protein (6.4-8.2) gm/dl Albumin (3.4-5.0) gm/dl Globulin (2.5-4.0) gm/dl Albumin/Globulin Ratio (0.9-2) Lipase (73-393) U/L Imaging Data Radiologist's Impression: XR chest 1V portable HISTORY: 79 years-old Male Chest Pain acute atypical chest pain COMPARISON: Bone scan 01/03/2016 TECHNIQUE: Portable AP view of the chest FINDINGS: Cardiac mediastinal and hilar silhouettes are within normal limits. No pneumothorax, pleural effusion or overt pulmonary edema. Patchy left lung base opacities. Scattered sclerotic metastasis redemonstrated. IMPRESSION: 1. Left lung base opacities suggestive of atelectasis versus pneumonia. 2. Multifocal osteoblastic metastatic disease redemonstrated. ECG Data Attestation: I personally reviewed and interpreted this ECG as follows: Indication: + chest pain Rate (beats per minute): 96 Rhythm: + normal sinus ECG Intervals/blocks: + Normal QT-c ECG ST segments: no ST elevation ECG Findings: no PVCs MDM Narrative This is a 79-year-old male who presents to the ED with a chief complaint of weakness and feeling bloated. He states he has been increasingly weak for the past 36 hours or so. The patient states that he feels bloated and feels like he might have to move his bowels. He also reported some chest pain that has been present for the past couple of weeks that is worse with movement. The patient's vital signs are stable. The physical exam was relatively unremarkable. Twelve- lead EKG shows a normal sinus rhythm at a rate of 96. His CBC is unremarkable with exception of a white blood cell count of 14.4. His hemoglobin is 10.7. INR is normal. BUN is 38 and creatinine is 1.56. Troponin is negative and a l ipase is negative. A chest x-ray reveals atelectasis versus pneumonia in the left base. Clinically this probably atelectasis. The patient was told the results. The nurse states that the patient is too weak to go to the bedside commode on his own. It required assistance of 2. The patient will need to stay in the hospital for significant weakness and be evaluated for physical therapy inpatient. The patient was given some IV fluids during his stay. Impression & Plan Generalized weakness Discharge Plan Visit Data Chief Complaint: Constipation Stated Complaint: ABD PAIN ED Provider: Joaquim Mooney Discharge Problem: Generalized weakness Patient Disposition: Being Evaluated by Hospitalist Forms Stand Alone Forms: [facility] Prescriptions Prescriptions: No Action atorvastatin [Lipitor] 40 mg Tablet 40 mg PO DAILY RF: 0 metformin 1,000 mg Tablet 1,000 mg PO BID RF: 0 Xgeva 120 mg/1.7 mL (70 mg/mL) Solution 120 mg SUBCUT USEASDIRECTD RF: 0 docusate sodium 100 mg Capsule 100 mg PO BID PRN (Reason: constipation) Qty: 60 RF: 0 multivitamin Tablet 1 tab PO DAILY RF: 0 aspirin [Aspir-81] 81 mg Tablet,Delayed Release (Dr/Ec) 81 mg PO DAILY RF: 0 calcium carbonate-vitamin D3 [Calcium 500 + D (D3)] 500 mg(1,250mg) -125 unit Tablet 1 tab PO BID RF: 0 morphine [MS Contin] 30 mg tablet extended release 30 mg PO Q12 RF: 0 hydromorphone [Dilaudid] 4 mg tablet 4 mg PO Q4 PRN (Reason: Pain) RF: 0 Referrals Referrals: Dawood Ford MD [Primary Care Provider] -
[2019-11-13 13:11] LABS: Basophils # (auto) 0.02 K/uL (0-0.2); Basophils % (auto) 0.1 %; Eosinophils # (auto) 0.14 K/uL (0-0.5); Hemoglobin 10.7 g/dL (14.0-18.0); Immature Granulocytes # (auto) 0.02 K/uL (0.00-0.02); Immature Granulocytes % (auto) 0.1 %; Lymphocytes # (auto) 1.25 K/uL (1.2-3.4); Lymphocytes % (auto) 8.6 %; Mean Corpuscular Hemoglobin 29.1 pg (25-34); Mean Corpuscular Hgb Conc 32.4 g/dL (32-36); Mean Corpuscular Volume 89.7 fL (80-100); Mean Platelet Volume 11.3 fL (7.4-10.4); Monocytes # (auto) 0.86 K/uL (0.11-0.59); Monocytes % (auto) 5.9 %; Neutrophils # (auto) 12.18 K/uL (1.4-6.5); Neutrophils % (auto) 84.3 %; Platelet Count 343 K/uL (130-400); RDW Coefficient of Variation 15.4 % (11.5-14.5); RDW Standard Deviation 50.1 fL (36.4-46.3); Red Blood Count 3.68 M/uL (4.7-6.1); White Blood Count 14.47 K/uL (4.8-10.8)
[2019-11-13 13:29] LABS: Alanine Aminotransferase 42 U/L (12-78); Albumin Level 3.2 gm/dl (3.4-5.0); Aspartate Aminotransferase 95 U/L (15-37); BUN Creatinine Ratio 24.5 (10-20); Blood Urea Nitrogen 38 mg/dl (7-18); Calcium 8.9 mg/dl (8.5-10.1); Carbon Dioxide 23 mmol/L (21-32); Chloride 103 mmol/L (98-107); Creatinine Clr Calc Pharmacy 36.5 ml/min; Est GFR (African American) 48.6; Est GFR (Non-African American) 41.9; Glucose 119 mg/dl (70-99); Lipase 113 U/L (73-393); Potassium 4.4 mmol/L (3.5-5.1); Sodium 136 mmol/L (136-145)
[2019-11-13 13:34] LABS: Albumin Globulin Ratio 0.7 (0.9-2); Alkaline Phosphatase 91 U/L (45-117); Bilirubin,Total 0.4 mg/dl (0.2-1); Globulin 4.6 gm/dl (2.5-4.0); Total Protein 7.8 gm/dl (6.4-8.2); Troponin I < 0.015 ng/ml (0-0.045)
[2019-11-13 14:22] LABS: INR 1.1 (0.9-1.1); Partial Thromboplastin Ratio 2.1; Prothrombin Time 11.8 Seconds (9.0-12.0)
[2019-11-13 14:25] LABS: Partial Thromboplastin Time 57.7 Seconds (21.0-31.0)
--- NOTE | 2019-11-13 14:51 | XRay Report ---
XR chest 1V portable HISTORY: 79 years-old Male Chest Pain acute atypical chest pain COMPARISON: Bone scan 01/03/2016 TECHNIQUE: Portable AP view of the chest FINDINGS: Cardiac mediastinal and hilar silhouettes are within normal limits. No pneumothorax, pleural effusion or overt pulmonary edema. Patchy left lung base opacities. Scattered sclerotic metastasis redemonstr ated. IMPRESSION: 1. Left lung base opacities suggestive of atelectasis versus pneumonia. 2. Multifocal osteoblastic metastatic disease redemonstrated. ACT 112: Negative or not required by law. The above report was generated using voice recognition software. It may contain grammatical, syntax o r spelling errors. Electronically signed by: Maykel Bashir M.D. 11/13/2019 2:49 PM
--- NOTE | 2019-11-13 15:54 | History & Physical Report ---
Date of Service November 13, 2019 Assessment & Plan (1) Generalized weakness: This is a 79yo M with a PMH of metastatic prostate cancer on Lupron, atypical chest pain, CKD 3, type 2 diabetes and other medical problems listed below who presents from home with generalized weakness, constipation and continued atypical chest pain. -Difficulty with ambulating and taking care of for the past few days -In setting of metastatic prostate cancer and likely deconditioning from recent hospitalization -Fall precautions, PT/OT evaluation, discharge planning for possible rehab placement (2) Pneumonia: Cough, difficulty expectorating sputum with chest discomfort 2/2 bony mets. CXR with left lung base opacities suggestive of atelectasis versus pneumonia. Multifocal osteoblastic metastatic disease re-demonstrated -Afebrile, leukocytosis of 14.47. Blood cultures ordered. Will consider ordering empiric abx depending on results of CT chest wo contrast -Duonebs PRN, incentive spirometry (3) Constipation: Recently prescribed more home narcotics for metastatic cancer -KUB without evidence of bowel obstruction. Moderate well-formed stool within the colon and rectum as well as multifocal osteoblastic metastatic disease -Continue Colace 100 mg twice daily, giving Dulcolax now, MiraLAX as needed (4) Atypical chest pain: Determined to be due to bony mets on imaging and during previous admission. Work-up negative for acute ischemic event or PE earlier this month -Pain has improved with increased narcotic use, but still present when patient coughs -EKG without acute ischemic change, initial troponin negative. Continue pain regimen for metastatic cancer (5) Metastatic disease: (6) Prostate cancer: Follows with Dr. Gibbs [facility]. Regimen includes Lupron and Xgeva (7) DMII (diabetes mellitus, type 2): -Hold home agents -SSI while in-patient -BSG AC HS (8) CKD (chronic kidney disease), stage III: Creatinine at baseline. Continue monitoring with daily BMP DVT Ppx: SQ heparin Code status: DNR per POLST form PCP: Liliana Dispo: Admit to med/surg. Discharge planning ordered. Patient seen in collaboration with Dr. Duran. Please see addendum. History of Present Illness Chief Complaint: generalized weakness Primary Care Provider: Dawood Ford MD This is a 79yo M with a PMH of metastatic prostate cancer on Lupron, atypical chest pain, CKD 3, type 2 diabetes and other medical problems listed below who presents from home with generalized weakness. Recently admitted at the beginning of the month for chest pain, that was determined to be due to bony metastasis. Work-up at that time included negative CT of chest for pulmonary embolism, EKG without any ischemic change, negative, echo with normal wall motion. Was evaluated by cardiology and no further cardiac work-up was indicated. Was prescribed 2 mg Dilaudid Q4H PRN related to bony mets and told to follow-up with oncology. Since then, Dilaudid dose increased to 4mg Q4H PRN and MS Contin 30mg Q12H added. Patient states that pain is much better controlled now but feels tired after taking Dilaudid so has not been utilizing as much. Has been feeling generally weaker than usual and unable to provide care for his like he usually does. Did slide off the toilet yesterday due to general weakness. Denies head trauma or LOC. Also endorsing some abdominal bloating and decreased frequency of bowel movements. Last regular sized bowel movement for him was 2 days ago. Also endorsing loose cough but feels like he cannot expectorate sputum due to chest pain from metastasis. No known fever, chills, lightheadedness, visual changes, palpitations, shortness of breath, nausea, vomiting, abdominal pain, dysuria or diarrhea. Allergies Allergy/AdvReac Type Severity Reaction Status Date / Time No Known Allergies Allergy Verified 11/02/19 02:21 Home Medications Home Medications Medication Instructions Recorded Confirmed Type atorvastatin [Lipitor] 40 mg PO DAILY 10/31/19 11/13/19 History Xgeva 120 mg SUBCUT USEASDIRECTD 11/01/19 11/13/19 History metformin 1,000 mg PO BID 11/01/19 11/13/19 History docusate sodium 100 mg PO BID PRN #60 cap 11/02/19 11/13/19 Rx aspirin [Aspir-81] 81 mg PO DAILY 11/13/19 11/13/19 History calcium carbonate-vitamin D3 1 tab PO BID 11/13/19 11/13/19 History [Calcium 500 + D (D3)] hydromorphone [Dilaudid] 4 mg PO Q4 PRN 11/13/19 11/13/19 History morphine [MS Contin] 30 mg PO Q12 11/13/19 11/13/19 History multivitamin 1 tab PO DAILY 11/13/19 11/13/19 History Past Med/Surg History Medical History (Updated 11/13/19 @ 17:23 by Destiny Patrick PA-C) Atypical chest pain CKD (chronic kidney disease), stage III DMII (diabetes mellitus, type 2) Metastatic disease Prostate cancer Surgical History (Updated 11/13/19 @ 17:17 by Destiny Patrick PA-C) History of carpal tunnel surgery Family History (Updated 11/13/19 @ 17:16 by Destiny Patrick PA-C) Other Diabetes Social History (Updated 11/13/19 @ 17:19 by Destiny Patrick PA-C) Smoking Status: Former smoker Tobacco Type: Cigarettes Second Hand Exposure: No; Hx Alcohol Use: No Hx Substance Use: No Preferred Language: Korean Communication Ability: Effective Poultry Dresser Required: No Beliefs That Will Affect Care: None marital status: Current Living Situation: Spouse Other Information That Helps Us Care for You: No Feels Safe at Home: Yes Safety Concerns: Feels Safe At This Time Assistive Devices: Cane and Glasses Review of Systems 2 Review of Systems: At least ten systems reviewed and negative except as noted in the HPI. Physical Exam Physical Exam: General Appearance: WD/WN, vitals as above, appears chronically ill pleasant, conversing easily Head: normocephalic, atraumatic Eyes: normal inspection, PERRL, conjunctivae normal, anicteric sclerae ENT: external ear and nose normal, oropharynx normal Neck: normal visual inspection, trachea midline, no thyromegaly Respiratory: normal respiratory effort, coarse breath sounds throughout with bibasilar rales, no wheeze. No accessory muscle use Cardiovascular: Tachycardic rate, regular rhythm, no murmur appreciated, normal peripheral pulses, no BLE edema. Vessels: no JVD Chest: normal inspection of chest Abdomen/GI: normal bowel sounds, soft but distended, nontender, no hepatosplenomegaly Extremities/Musculoskeletal: no cyanosis or clubbing, extremities motor strength 5/5 Neurologic: PERRL, EOMI, accommodation nl, no face palsy, no dysarthria, CN's II-XI intact bilaterally and moves all extremities Psychiatric: A+Ox3, euthymic affect Skin: no rashes, normal color, warm/dry Results & Data Results & Data ([facility]) Vital Signs (Past 12 Hours) Vital Signs Temp Pulse Resp BP Pulse Ox 11/13/19 12:58 36.9 C 99 H 20 141/96 H 96 Laboratory Results Short CBC 11/13/19 11/13/19 11/13/19 Range/Units 11:47 11:47 11:47 WBC 14.47 H (4.8-10.8) K/uL RBC 3.68 L (4.7-6.1) M/uL Hgb 10.7 L (14.0-18.0) g/dL Hct 33.0 L (42-52) % MCV 89.7 (80-100) fL MCH 29.1 (25-34) pg MCHC 32.4 (32-36) g/dL RDW Std Deviation 50.1 H (36.4-46.3) fL RDW Coeff of Dilma 15.4 H (11.5-14.5) % Plt Count 343 (130-400) K/uL MPV 11.3 H (7.4-10.4) fL Immature Gran % (Auto) 0.1 % Neut % (Auto) 84.3 % Lymph % (Auto) 8.6 % Christian % (Auto) 5.9 % Eos % (Auto) 1.0 % Baso % (Auto) 0.1 % Neut # (Auto) 12.18 H (1.4-6.5) K/uL Lymph # (Auto) 1.25 (1.2-3.4) K/uL Christian # (Auto) 0.86 H (0.11-0.59) K/uL Eos # (Auto) 0.14 (0-0.5) K/uL Baso # (Auto) 0.02 (0-0.2) K/uL Immature Gran # (Auto) 0.02 (0.00-0.02) K/uL PT Cancelled INR Cancelled APTT Cancelled PTT Ratio Cancelled Sodium 136 (136-145) mmol/L Potassium 4.4 (3.5-5.1) mmol/L Chloride 103 (98-107) mmol/L Carbon Dioxide 23 (21-32) mmol/L Anion Gap 10.0 (3-11) BUN 38 H (7-18) mg/dl Creatinine 1.56 H (0.6-1.4) mg/dl Est Cr Clr Drug Dosing 36.5 ml/min Est GFR ( Amer) 48.6 Est GFR (Non-Af Amer) 41.9 BUN/Creatinine Ratio 24.5 H (10-20) Glucose 119 H (70-99) mg/dl Calcium 8.9 (8.5-10.1) mg/dl Total Bilirubin 0.4 (0.2-1) mg/dl AST 95 H (15-37) U/L ALT 42 (12-78) U/L Alkaline Phosphatase 91 (45-117) U/L Troponin I < 0.015 (0-0.045) ng/ml Total Protein 7.8 (6.4-8.2) gm/dl Albumin 3.2 L (3.4-5.0) gm/dl Globulin 4.6 H (2.5-4.0) gm/dl Albumin/Globulin Ratio 0.7 L (0.9-2) Lipase 113 (73-393) U/L 11/13/19 Range/Units 13:45 WBC (4.8-10.8) K/uL RBC (4.7-6.1) M/uL Hgb (14.0-18.0) g/dL Hct (42-52) % MCV (80-100) fL MCH (25-34) pg MCHC (32-36) g/dL RDW Std Deviation (36.4-46.3) fL RDW Coeff of Dilma (11.5-14.5) % Plt Count (130-400) K/uL MPV (7.4-10.4) fL Immature Gran % (Auto) % Neut % (Auto) % Lymph % (Auto) % Christian % (Auto) % Eos % (Auto) % Baso % (Auto) % Neut # (Auto) (1.4-6.5) K/uL Lymph # (Auto) (1.2-3.4) K/uL Christian # (Auto) (0.11-0.59) K/uL Eos # (Auto) (0-0.5) K/uL Baso # (Auto) (0-0.2) K/uL Immature Gran # (Auto) (0.00-0.02) K/uL PT 11.8 INR 1.1 APTT 57.7 H* PTT Ratio 2.1 Sodium (136-145) mmol/L Potassium (3.5-5.1) mmol/L Chloride (98-107) mmol/L Carbon Dioxide (21-32) mmol/L Anion Gap (3-11) BUN (7-18) mg/dl Creatinine (0.6-1.4) mg/dl Est Cr Clr Drug Dosing ml/min Est GFR ( Amer) Est GFR (Non-Af Amer) BUN/Creatinine Ratio (10-20) Glucose (70-99) mg/dl Calcium (8.5-10.1) mg/dl Total Bilirubin (0.2-1) mg/dl AST (15-37) U/L ALT (12-78) U/L Alkaline Phosphatase (45-117) U/L Troponin I (0-0.045) ng/ml Total Protein (6.4-8.2) gm/dl Albumin (3.4-5.0) gm/dl Globulin (2.5-4.0) gm/dl Albumin/Globulin Ratio (0.9-2) Lipase (73-393) U/L BMP 11/13/19 11:47 Sodium 136 Potassium 4.4 Chloride 103 Carbon Dioxide 23 BUN 38 H Creatinine 1.56 H Glucose 119 H Calcium 8.9 Cardiac Enzymes 11/13/19 Range/Units 11:47 Troponin I < 0.015 (0-0.045) ng/ml Liver Function 11/13/19 Range/Units 11:47 Total Bilirubin 0.4 (0.2-1) mg/dl AST 95 H (15-37) U/L ALT 42 (12-78) U/L Alkaline Phosphatase 91 (45-117) U/L Albumin 3.2 L (3.4-5.0) gm/dl Diagnostic Findings CXR: IMPRESSION: 1. Left lung base opacities suggestive of atelectasis versus pneumonia. 2. Multifocal osteoblastic metastatic disease redemonstrated. CT chest wo contrast: pending KUB: IMPRESSION: 1. No evidence for bowel obstruction. 2. Moderate well-formed stool within the colon and rectum. 3. Multifocal osteoblastic metastatic disease. Code Status & VTE Plan VTE Prophylaxis Plan VTE Prophylaxis will be ordered: Yes Supervising Physician Co-Signing Physician Notes I saw this patient with the physician obstetric assistant, I participated in the history, physical, review of systems, and physical exam. I reviewed the medications with the patient and the physician obstetric assistant and helped reconcile the medications. I helped take a detailed family and social history as well. I formulated the assessment and plan personally with the physician obstetric assistant and went over it with the patient. Physical Exam Gen-AAO x 3, NAD, Afebrile Head-NCAT, EOMI, PERRLA, Anicteric Sclera, No Posterior Pharyngeal Erythema Neck-Supple, No JVD, No Thyromegaly, No Masses, No LAD, No Bruits Lungs-Scattered Rhonchi Bilaterally Chest-No S4, +S1, +S2, No S3, No Murmurs, No Rubs, No Gallops, No Ectopy Abdomen-Soft, Bowel Sounds Present, Non Tender, Non Distended, No Hepatomegaly, No Splenomegaly, No Palpable Masses, No Rebound, No Rigidity, No Guarding Musculoskeletal-Full Range of Motion Bilaterally, No CVAT Extremities-No Cyanosis, No Clubbing, No Edema Nuero-Cranial Nerves II-XII grossly intact, Motor WNL, DTRs WNL, Strength WNL, Non Focal Psych-Normal Mood
--- NOTE | 2019-11-13 16:58 | XRay Report ---
KUB HISTORY: constipation COMPARISON: Bone scan 01/03/2016. FINDINGS: The bowel gas pattern is unremarkable. There are no dilated loops of small bowel to suggest an obstruction. No renal calculi. No ureteral calculi. No pneumoperitoneum or pneumatosis. Multifoc al osteoblastic metastatic disease. Moderate amount of well-formed stool within the colon and rectum. IMPRESSION: 1. No evidence for bowel obstruction. 2. Moderate well-formed stool within the colon and rectum. 3. Multifocal osteoblastic metastatic disease. ACT 112: Negative or not required by law. Electronically signed by: Kai Arreola M.D. 11/13/2019 4:57 PM
--- NOTE | 2019-11-13 18:16 | CT Scan Report ---
CT SCAN OF THE CHEST WITHOUT IV CONTRAST CLINICAL HISTORY: Cough. Prostate cancer. COMPARISON STUDY: Chest x-ray dated 11/13/2019. Nuclear bone scan dated 01/03/2016. TECHNIQUE: CT scan of the thorax was performed from the thoracic inlet to the upper abdomen. Images are reviewed in the axial, sagittal, and coronal planes. IV contrast was not administered for this ex amination as per the referring clinician. A dose lowering technique was utilized adhering to the sasha mccallumples of JESSICA. CT DOSE: 641.79 mGycm FINDINGS: Thyroid: Imaged portions of the thyroid gland are normal in size and attenuation. Thoracic aorta: There is atherosclerotic calcification of the thoracic ureter. There is ectasia of th e ascending thoracic aorta which measures up to 4.0 cm in diameter. The remainder of the thoracic aor ta is normal in caliber, and the arch demonstrates standard 3-vessel anatomy. Heart: The heart is normal in size and without pericardial effusion. There are coronary artery calcif ications. Lungs and pleural spaces: Mild emphysematous change is noted in the upper lobes. There is patchy airs pace consolidation at the left lung base. Milder groundglass consolidation is seen in the superior se gment of the left lower lobe. Dependent airspace opacities at the right lung base likely represent at electasis. No pleural effusion is identified. The trachea and central airways are clear. A low suspic ion 5 mm focus of pleural-based nodularity in the right lower lobe is seen on image #[id number] along the ma noa fissure. Mediastinum: There is no mediastinal lymphadenopathy. Sandy: Not well assessed without IV contrast. Axillae: There is no axillary lymphadenopathy. Upper abdomen: There is a small hiatal hernia. Partially visualized upper abdominal viscera is otherw ise grossly unremarkable. Skeletal structures: The skeletal structures are osteopenic. 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 A superior endplate compression deformity of T12 is partially visual ized. There are also mild superior endplate compression deformities of T3, T5, and T6. IMPRESSION: 1. Airspace consolidation in the left lower lobe is typical for an infectious/inflammatory pneumoniti s. Clinical correlation will be required and radiographic follow-up to resolution is recommended. 2. Again seen are changes of multifocal osteoblastic metastatic disease. 3. Mild emphysema. 4. There is ectasia of the ascending thoracic aorta which measures up to 4 cm in diameter. 5. Additional findings as above. ACT 112: Negative or not required by law. Electronically signed by: Chuck Perez M.D. 11/13/2019 6:15 PM
[2019-11-13] MEDS ORDERED: bisacodyL 5 MG TABEC PO ONE (19:46)
[2019-11-13] MEDS ORDERED: DEXTROSE 50% 50 ML SYRINGE IV PRN (19:46)
[2019-11-13] MEDS ORDERED: GLUCOSE 40% GEL 15 GM TUBE PO PRN (19:46)
[2019-11-13] MEDS ORDERED: GLUCAGON FOR INJ 1 MG VIAL SQ PRN (19:46)
[2019-11-13] MEDS ORDERED: CARBOHYDRATES FOR HYPOGLYCEMIA PO PRN (19:46)
[2019-11-13] MEDS ORDERED: POLYETHYLENE (MIRALAX) 17 GM PACK PO PRN (19:46)
[2019-11-13] MEDS ORDERED: GLUCOSE 10 TABS/TUBE PO PRN (19:46)
[2019-11-13] MEDS ORDERED: HYDROmorphone HCL 2 MG TAB PO PRN (19:46)
[2019-11-13] MEDS ORDERED: SODIUM CHLORIDE 0.9% 1000ML 1,000 ML IV SCH (19:46)
[2019-11-13] MEDS ORDERED: ONDANSETRON INJ 2 MG/ML 2 ML VIAL IV PRN (19:46)
[2019-11-13] MEDS ORDERED: VANCOMYCIN CONSULT ACTIVE PRN (20:20)
[2019-11-13] MEDS ORDERED: PIPERACILL/TAZOBAC CONSULT ACTIVE PRN (20:20)
[2019-11-13] MEDS: DOCUSATE SODIUM 100 MG CAP PO SCH (20:26)
[2019-11-13] MEDS: CALCIUM 600MG + VIT D 400 IU TAB PO SCH (20:26)
[2019-11-13] MEDS ORDERED: VANCOMYCIN HCL 1,750 MG in SODIUM CHLORIDE 0.9% 500 ML IV ONE (20:30)
[2019-11-13] MEDS ORDERED: PIPERACILLIN/TAZOBACTAM 4.5 GM in DEXTROSE 5% 100 ML IV ONE (20:30)
--- NOTE | 2019-11-13 20:44 | Pharmacy Report ---
Pharmacy Abx Initial Consult - Date of Service November 13, 2019 - Pharmacy Dosing Scope Date of Consult: 11/13/19 Consultation requested by: Destiny Patrick PA-C Pharmacy is consulted to initiate vancomycin and Zosyn IV dosing therapy, order appropriate labs and adjust drug dose/frequency. - Subjective The patient is a 79 year old M admitted on 11/13/19 15:53. - Objective Height: 5 ft 7 in Weight: 77 kg Vital Signs (Past 12hrs): Vital Signs Temp Pulse Pulse Resp BP BP Pulse Ox 11/13/19 19:59 37.7 C H 116 H 16 149/89 H 94 11/13/19 19:24 94 H 18 143/96 H 98 11/13/19 18:30 95 H 18 145/95 H 97 11/13/19 16:50 105 H 22 11/13/19 16:40 100 H 14 11/13/19 16:31 103 H 20 11/13/19 16:29 103 H 20 142/105 H 11/13/19 16:20 110 H 12 11/13/19 16:16 111 H 31 H 11/13/19 15:58 116 H 23 142/105 H 11/13/19 15:00 98 H 22 147/105 H 96 11/13/19 12:58 36.9 C 99 H 20 141/96 H 96 Lab Results (24hrs): Laboratory Tests (24 Hours) 11/13/19 11/13/19 11:47 11:47 WBC 14.47 H Neut # (Auto) 12.18 H Creatinine 1.56 H Est Cr Clr Drug Dosing 36.5 Micro Results: 11/13/19 18:20 Aerobic Blood Culture - Pending Blood Anaerobic Blood Culture - Pending 11/13/19 18:30 Aerobic Blood Culture - Pending Blood Anaerobic Blood Culture - Pending - Risk Factors for Resistance * Hospitalization for 48 hours or more within the past 90 days * Immunocompromised (metastatic prostate cancer - Lupron + Xgeva) * Diabetes mellitus + chronic kidney disease - Assessment & Plan Assessment 79 year old M presented to ED on afternoon of 11/12 with generalized weakness. Pertinent past medical history includes metastatic prostate cancer (currently receiving Lupron and Xgeva), CKD, and type 2 diabetes mellitus. Patient with cough in ED, chest x-ray shows left lung base opacities (atelectasis vs. pneumonia), chest CT revealed airspace consolidation in left lower lobe (infectious/inflammatory pneumonitis). Treating empirically with vancomycin and Zosyn. MRSA nasal swab ordered - can likely de-escalate vancomycin if negative. SCr of 1.56 mg/dL - slightly above baseline last admission of 1.3 mg/dL. Plan Vancomycin IV * Estimated PK Parameters: Vd 0.7 L/kg, Obed 0.034 hr-1, t1/2 20 hr * Loading dose: 1750 mg (23 mg/kg) * Maintenance dose: 1250 mg IV (16 mg/kg) every 24 hours * Goal trough level for pneumonia : 15 to 20 mcg/mL * Will order vancomycin trough if patient is to remain on vancomycin Piperacillin/tazobactam * 4.5 g bolus administered over 30 minutes, then 3.375 g IV extended infusion every 8 hours for CrCl greater than 20 mL/min Pharmacy will continue to follow and will adjust dose/frequency as necessary. Thank you.
[2019-11-13] MEDS: INSULIN ASPART 100 UNITS/ML 3 ML PEN SC SCH (21:29)
[2019-11-13] MEDS: HEPARIN SOD 5,000 UNIT/0.5 ML VIAL SQ SCH (21:30)
[2019-11-13] MEDS: MoRPHine SULFATE CR 15 MG TABCR PO SCH (21:34)
[2019-11-14] MEDS: PIPERACILLIN/TAZOBACTAM 3.375 GM in DEXTROSE 5% 100 ML IV SCH ×3 (02:54→17:49)
[2019-11-14] MEDS: HEPARIN SOD 5,000 UNIT/0.5 ML VIAL SQ SCH ×3 (05:21→21:36)
[2019-11-14 06:55] LABS: Hematocrit (blood only) 29.1 % (42-52); Hemoglobin 9.4 g/dL (14.0-18.0); Mean Corpuscular Hgb Conc 32.3 g/dL (32-36); Mean Corpuscular Volume 89.8 fL (80-100); Mean Platelet Volume 10.6 fL (7.4-10.4); Platelet Count 301 K/uL (130-400); RDW Coefficient of Variation 15.3 % (11.5-14.5); Red Blood Count 3.24 M/uL (4.7-6.1); White Blood Count 10.83 K/uL (4.8-10.8)
[2019-11-14 07:26] LABS: BUN Creatinine Ratio 24.1 (10-20); Calcium 8.3 mg/dl (8.5-10.1); Creatinine Clr Calc Pharmacy 40.1 ml/min; Est GFR (African American) 54.4; Potassium 4.4 mmol/L (3.5-5.1)
[2019-11-14] MEDS: MULTIVITAMIN TAB PO SCH (07:40)
[2019-11-14] MEDS: DOCUSATE SODIUM 100 MG CAP PO SCH ×2 (07:40→20:36)
[2019-11-14] MEDS: ATORVASTATIN 40 MG TAB PO SCH (07:40)
[2019-11-14] MEDS: ASPIRIN 81 MG ECTAB PO SCH (07:40)
[2019-11-14] MEDS: CALCIUM 600MG + VIT D 400 IU TAB PO SCH ×2 (07:40→20:36)
[2019-11-14] MEDS: MoRPHine SULFATE CR 15 MG TABCR PO SCH ×2 (07:43→20:37)
[2019-11-14] MEDS: INSULIN ASPART 100 UNITS/ML 3 ML PEN SC SCH ×4 (08:20→21:36)
--- NOTE | 2019-11-14 14:22 | Hospitalist Progress Note ---
Date of Service November 14, 2019 Assessment & Plan (1) Pneumonia: Presented with generalized weakness and cough CT of the chest without contrast showed left lower lobe infiltration Afebrile, leukocytosis of 14.47. Blood cultures ordered-results pending. Received intravenous Zosyn and vancomycin MRSA screen has been negative-IV vancomycin is discontinued Clinically much better this morning WBC has improved to 10.83 from 14.47 on admission We will continue with intravenous Zosyn for now changed to oral antibiotic on discharge Anemia of chronic disease and cancer Chronic in nature Hemoglobin remains stable at 9.4 as of 11/14/2019 (2) Generalized weakness: This is a 79yo M with a PMH of metastatic prostate cancer on Lupron, atypical chest pain, CKD 3, type 2 diabetes and other medical problems listed below who presents from home with generalized weakness, constipation and continued atypical chest pain. -Difficulty with ambulating and taking care of for the past few days -In setting of metastatic prostate cancer and likely deconditioning from recent hospitalization -Fall precautions, PT/OT evaluation, discharge planning for possible rehab placement (3) Constipation: Recently prescribed more home narcotics for metastatic cancer -KUB without evidence of bowel obstruction. Moderate well-formed stool within the colon and rectum as well as multifocal osteoblastic metastatic disease -Continue Colace 100 mg twice daily, giving Dulcolax now, MiraLAX as needed (4) Atypical chest pain: Determined to be due to bony mets on imaging and during previous admission. Work-up negative for acute ischemic event or PE earlier this month -Pain has improved with increased narcotic use, but still present when patient coughs -EKG without acute ischemic change, initial troponin negative. Continue pain regimen for metastatic cancer -Denies any more chest pain -Doubt chest pain is secondary to cardiac (5) Metastatic disease: (6) Prostate cancer: Follows with Dr. Gibbs [facility]. Regimen includes Lupron and Xgeva CXR with left lung base opacities suggestive of atelectasis versus pneumonia. Multifocal osteoblastic metastatic disease re-demonstrated (7) DMII (diabetes mellitus, type 2): -Hold home agents -SSI while in-patient -BSG AC HS (8) CKD (chronic kidney disease), stage III: Creatinine at baseline. Continue monitoring with daily BMP DVT Ppx: SQ heparin Code status: DNR per POLST form PCP: [facility] Dispo: Admit to med/surg. Discharge planning ordered. Discussed with the Daughter in detailed. Admission and Anticipated Discharge Date Admission Date: November 13, 2019 Subjective 11/14/2019 The patient was seen and examined in medical telemetry unit This is a 79yo M with a PMH of metastatic prostate cancer on Lupron, atypical chest pain, CKD 3, type 2 diabetes and other medical problems listed below who presents from home with generalized weakness, constipation and continued atypical chest pain. Noted to have a left lower lobe infiltration on CAT scan Has been feeling a lot better since admission Has minimal cough and denies any other significant symptoms Review of Systems Review of Systems: All systems reviewed and are unremarkable except as noted below Constitutional: + malaise and + weakness; no fever and no chills Respiratory: + cough; no dyspnea Physical Exam Physical Exam: Lying in bed comfortably Constitutional: well developed, well nourished and + ill appearing; no acute distress Eyes: PERRL, conjunctivae normal, anicteric sclerae ENMT: external ear and nose normal, oropharynx normal Neck: trachea midline, no thyromegaly Respiratory: normal respiratory effort; no respiratory distress Auscultation: + diminished lung sounds and + crackles (Minimal crackles left base) Cardiovascular: Rate/Rhythm: regular rate and regular rhythm Heart Sounds: + murmur (2/6 ejection systolic murmur over precordium) Extremities: + edema (Trace edema bilaterally) Gastrointestinal (Abdomen): Inspection/Auscultation: abdomen normal to inspection and normal bowel sounds; abdomen not distended Percussion/Palpation: abdomen soft Musculoskeletal: No acute arthritis involving any joints Neurologic: moves all extremities Alert, awake and oriented x3 Psychiatric: A+Ox3, euthymic affect Lymphatic: no cervical or axillary lymphadenopathy Results & Data Results & Data ([facility]) Vital Signs (Past 12 Hours) Vital Signs Temp Pulse Resp BP BP Pulse Ox 11/14/19 11:43 37 C 104 H 16 122/71 91 11/14/19 07:29 37.8 C H 97 H 16 115/75 93 11/14/19 04:25 36.8 C 82 20 130/72 98 Laboratory Results Short CBC 11/14/19 Range/Units 06:22 WBC 10.83 H (4.8-10.8) K/uL Hgb 9.4 L (14.0-18.0) g/dL Hct 29.1 L (42-52) % Plt Count 301 (130-400) K/uL BMP 11/14/19 06:22 Sodium 137 Potassium 4.4 Chloride 106 Carbon Dioxide 25 BUN 34 H Creatinine 1.42 H Glucose 116 H Calcium 8.3 L Medications Administered Current Inpatient Medications Acetaminophen (Acetaminophen 325 Mg Tab) 650 mg PO Q4H PRN PRN Reason: pain/fever Stop: 12/13/19 19:45 Aspirin (Aspirin 81 Mg Ectab) 81 mg PO DAILY [facility]MEN Stop: 12/14/19 08:59 Last Admin: 11/14/19 07:40 Dose: 81 mg Documented by: Atorvastatin Calcium (Atorvastatin 40 Mg Tab) 40 mg PO DAILY [facility]MEN Stop: 12/14/19 08:59 Last Admin: 11/14/19 07:40 Dose: 40 mg Documented by: Dextrose (Dextrose 50% 50 Ml Syringe) 25 - 50 ml IV UD PRN; Protocol PRN Reason: Hypoglycemia Protocol Stop: 12/13/19 19:45 Docusate Sodium (Docusate Sodium 100 Mg Cap) 100 mg PO BID CARMEN Stop: 12/13/19 20:59 Last Admin: 11/14/19 07:40 Dose: 100 mg Documented by: Glucagon (Glucagon For Inj 1 Mg Vial) 1 mg SQ UD PRN; Protocol PRN Reason: Hypoglycemia Protocol Stop: 12/13/19 19:45 Glucose (Glucose 10 Tabs/Tube) 4 - 8 tabs PO UD PRN; Protocol PRN Reason: Hypoglycemia Protocol Stop: 12/13/19 19:45 Glucose (Glucose 40% Gel 15 Gm Tube) 15 - 30 gm PO UD PRN; Protocol PRN Reason: Hypoglycemia Protocol Stop: 12/13/19 19:45 Heparin Sodium (Porcine) (Heparin Sod 5,000 Unit/0.5 Ml Vial) 5,000 units SQ Q8 [facility] Stop: 12/13/19 21:59 Last Admin: 11/14/19 13:35 Dose: 5,000 units Documented by: Hydromorphone HCl (Hydromorphone Hcl 2 Mg Tab) 2 mg PO Q4 PRN PRN Reason: Pain Stop: 11/27/19 19:45 Piperacillin Sod/Tazobactam (Sod 3.375 gm/ Dextrose) 115 mls @ 28.75 mls/hr IV Q8H CARMEN; Protocol Stop: 11/21/19 01:59 Last Infusion: 11/14/19 13:36 Dose: Infused Documented by: Insulin Aspart (Insulin Aspart 100 Units/Ml 3 Ml Pen) 0 units SC ACHS [facility] Stop: 12/13/19 20:59 Last Admin: 11/14/19 12:19 Dose: 4 units Documented by: Miscellaneous (Carbohydrates For Hypoglycemia ) 15 - 30 gm PO UD PRN PRN Reason: Hypoglycemia Protocol Stop: 12/13/19 19:45 Miscellaneous Information (Piperacill/Tazobac Consult Active) 1 ea N/A UD PRN PRN Reason: Consult Stop: 12/13/19 20:19 Morphine Sulfate (Morphine Sulfate Cr 15 Mg Tabcr) 30 mg PO Q12 [facility] Stop: 11/27/19 20:59 Last Admin: 11/14/19 07:43 Dose: 30 mg Documented by: Multivitamins (Multivitamin Tab) 1 tab PO DAILY CARMEN Stop: 12/14/19 08:59 Last Admin: 11/14/19 07:40 Dose: 1 tab Documented by: Multivitamins/Minerals (Calcium 600mg + Vit D 400 Iu Tab) 1 tab PO BID CARMEN Stop: 12/13/19 20:59 Last Admin: 11/14/19 07:40 Dose: 1 tab Documented by: Ondansetron HCl (Ondansetron Inj 2 Mg/Ml 2 Ml Vial) 4 mg IV Q6H PRN PRN Reason: Nausea Stop: 12/13/19 19:45 Polyethylene Glycol (Polyethylene (Miralax) 17 Gm Pack) 17 gm PO DAILY PRN PRN Reason: Constipation Stop: 12/13/19 19:45
--- NOTE | 2019-11-14 15:38 | Electrocardiogram Report ---
Test Reason : Blood Pressure : / mmHG Vent. Rate : 096 BPM Atrial Rate : 096 BPM P-R Int : 146 ms QRS Dur : 082 ms QT Int : 360 ms P-R-T Axes : 055 039 030 degrees QTc Int : 454 ms Poor data quality, interpretation may be adversely affected Normal sinus rhythm Cannot rule out Anterior infarct , age undetermined , likely lead placement Abnormal ECG When compared with ECG of 01-NOV-2019 06:47, No significant change Confirmed by Hunter Nagel ([id number]) on 11/14/2019 3:38:06 PM Referred By: REFERRED SELF Confirmed By:Hunter Nagel
[2019-11-14] MEDS ORDERED: VANCOMYCIN HCL 1,250 MG in SODIUM CHLORIDE 0.9% 250 ML IV SCH (20:00)
[2019-11-14] MEDS: ACETAMINOPHEN 325 MG TAB PO PRN (20:36)
[2019-11-14] MEDS ORDERED: KETOROLAC TROMETHAMINE 15 MG/ML VIAL IV ONE (21:57)
[2019-11-15] MEDS: PIPERACILLIN/TAZOBACTAM 3.375 GM in DEXTROSE 5% 100 ML IV SCH ×3 (01:26→17:35)
[2019-11-15] MEDS: HEPARIN SOD 5,000 UNIT/0.5 ML VIAL SQ SCH ×3 (05:24→21:10)
[2019-11-15 07:05] LABS: Hematocrit (blood only) 29.9 % (42-52); Hemoglobin 9.7 g/dL (14.0-18.0); Mean Corpuscular Hemoglobin 29.1 pg (25-34); Mean Corpuscular Hgb Conc 32.4 g/dL (32-36); Mean Corpuscular Volume 89.8 fL (80-100); Mean Platelet Volume 10.9 fL (7.4-10.4); Platelet Count 281 K/uL (130-400); RDW Coefficient of Variation 15.4 % (11.5-14.5); RDW Standard Deviation 50.7 fL (36.4-46.3); Red Blood Count 3.33 M/uL (4.7-6.1); White Blood Count 10.37 K/uL (4.8-10.8)
[2019-11-15 07:39] LABS: BUN Creatinine Ratio 18.3 (10-20); Calcium 8.3 mg/dl (8.5-10.1); Creatinine Clr Calc Pharmacy 29.5 ml/min; Est GFR (African American) 37.6; Est GFR (Non-African American) 32.4; Potassium 4.2 mmol/L (3.5-5.1)
[2019-11-15] MEDS: ASPIRIN 81 MG ECTAB PO SCH (08:12)
[2019-11-15] MEDS: DOCUSATE SODIUM 100 MG CAP PO SCH ×2 (08:12→21:09)
[2019-11-15] MEDS: MoRPHine SULFATE CR 15 MG TABCR PO SCH ×2 (08:12→21:10)
[2019-11-15] MEDS: CALCIUM 600MG + VIT D 400 IU TAB PO SCH ×2 (08:12→21:08)
[2019-11-15] MEDS: ATORVASTATIN 40 MG TAB PO SCH (08:13)
[2019-11-15] MEDS: MULTIVITAMIN TAB PO SCH (08:13)
[2019-11-15] MEDS: INSULIN ASPART 100 UNITS/ML 3 ML PEN SC SCH ×4 (08:14→21:12)
--- NOTE | 2019-11-15 17:06 | Hospitalist Progress Note ---
Date of Service November 15, 2019 Assessment & Plan (1) Pneumonia: Clinically improved with respect to weakness and breathing. He is off supplemental oxygen and doing well. He still has too much weakness to ambulate. Still intermittently having some cough. Leukocytosis resolved. He did have some fever this morning question if this is related to diffuse metastatic disease versus uncontrolled infection, favor the former. Continue Zosyn for now and if still clinically improving tomorrow and blood cultures remain negative will consider de-escalation of antibiotics to oral. (2) Generalized weakness: Likely related to diffuse metastatic prostate disease as well as pneumonia superinfection. Multiple additional contributing factors likely present from comorbidities, stress, etc. Overall feels improved with treatment for pneumonia. Continue working with therapy. Fall precautions. (3) Constipation: Opiate-induced constipation from scheduled morphine. Patient reports having a bowel movement today and daily. He does have a distended abdomen on exam which he reports is normal for him. He is passing gas when he sits down. A recent KUB performed on him revealed no evidence of bowel obstruction. Continue Colace twice daily and MiraLAX as needed. (4) Atypical chest pain: Determined to be due to bony mets on imaging and during previous admissi on. Work-up negative for acute ischemic event or PE earlier this month -Pain has improved with increased narcotic use, but still present when patient coughs -EKG without acute ischemic change, initial troponin negative. Continue pain regimen for metastatic cancer Chest pain is absent today (5) Metastatic disease: Prostate cancer with diffuse metastatic disease present. Palliate as needed. Will need to have a more traci discussion regarding goals of care tomorrow. Palliative care is also been consulted. (6) Prostate cancer: Follows with Dr. Gibbs. Regimen includes Lupron and Xgeva CXR with left lung base opacities suggestive of atelectasis versus pneumonia. Multifocal osteoblastic metastatic disease re-demonstrated (7) DMII (diabetes mellitus, type 2): -Hold home agents -SSI while in-patient; he is currently at goal inpatient glucose. -BSG AC HS (8) Acute worsening of stage 3 chronic kidney disease: Creatinine went from 1.42 to 1.93 today with GFR declined from 40 to 29, respectively. Only 1 dose of ketorolac given. Would avoid giving NSAIDs or other nephrotoxic medications if able. Patient is eating and drinking well at this point. He may be experiencing insensible losses when he gets febrile. Tr end BMP in a.m. Consider IV fluids overnight or tomorrow if worsening. (9) DVT prophylaxis: Heparin DNR/DNI Dispo-uncertain at this time. He is feeling stronger but is not strong enough to ambulate or go home safely. Will continue to monitor and having goals of care discussion with him. Palliative is also consulted. Kristine Solano DO [facility] and Anticipated Discharge Date Admission Date: November 13, 2019 Subjective Patient reports feeling better clinically Had bowel movement today Reports flatus Tolerating p.o. well. Review of Systems Review of Systems: All systems reviewed & are unremarkable except as noted in Subjective Physical Exam Physical Exam: CONSTITUTIONAL: thin, frail, vitals as above, generally well- appearing EYES: pupils are round and equal bilaterally, normal conjunctivae, no scleral icterus ENT: external ear and nose normal, oropharynx clear, MMM RESPIRATORY: clear to auscultation bilaterally, no crackles, rales or wheezes, normal respiratory effort CARDIOVASCULAR: regular rate and rhythm, S1 and 2 heard without murmurs, gallops or rubs, no JVD, no peripheral edema GASTROINTESTINAL: normal bowel sounds, soft, nontender, nondistended MUSCULOSKELETAL: generalized weakness but moving all extremities equally, head is normocephalic and atraumatic SKIN: warm and dry NEUROLOGIC: CN 2-12 grossly intact, normal cognition, normal speech PSYCHIATRIC: alert cooperative and oriented to person, place and time. Results & Data Results & Data ([facility]) Vital Signs (Past 12 Hours) Vital Signs Temp Pulse Resp BP Pulse Ox 11/15/19 15:41 37.4 C 88 18 127/78 95 11/15/19 11:41 36.9 C 80 18 115/75 100 11/15/19 08:46 36.9 C 11/15/19 07:54 39.7 C H 84 18 105/70 98 Laboratory Results Short CBC 11/15/19 Range/Units 06:36 WBC 10.37 (4.8-10.8) K/uL Hgb 9.7 L (14.0-18.0) g/dL Hct 29.9 L (42-52) % Plt Count 281 (130-400) K/uL BMP 11/15/19 06:36 Sodium 137 Potassium 4.2 Chloride 106 Carbon Dioxide 24 BUN 35 H Creatinine 1.93 H D Glucose 104 H Calcium 8.3 L Medications Administered Current Inpatient Medications Acetaminophen (Acetaminophen 325 Mg Tab) 650 mg PO Q4H PRN PRN Reason: pain/fever Stop: 12/13/19 19:45 Last Admin: 11/14/19 20:36 Dose: 650 mg Documented by: Aspirin (Aspirin 81 Mg Ectab) 81 mg PO DAILY CARMEN Stop: 12/14/19 08:59 Last Admin: 11/15/19 08:12 Dose: 81 mg Documented by: Atorvastatin Calcium (Atorvastatin 40 Mg Tab) 40 mg PO DAILY [facility] Stop: 12/14/19 08:59 Last Admin: 11/15/19 08:13 Dose: 40 mg Documented by: Dextrose (Dextrose 50% 50 Ml Syringe) 25 - 50 ml IV UD PRN; Protocol PRN Reason: Hypoglycemia Protocol Stop: 12/13/19 19:45 Docusate Sodium (Docusate Sodium 100 Mg Cap) 100 mg PO BID CARMEN Stop: 12/13/19 20:59 Last Admin: 11/15/19 08:12 Dose: 100 mg Documented by: Glucagon (Glucagon For Inj 1 Mg Vial) 1 mg SQ UD PRN; Protocol PRN Reason: Hypoglycemia Protocol Stop: 12/13/19 19:45 Glucose (Glucose 10 Tabs/Tube) 4 - 8 tabs PO UD PRN; Protocol PRN Reason: Hypoglycemia Protocol Stop: 12/13/19 19:45 Glucose (Glucose 40% Gel 15 Gm Tube) 15 - 30 gm PO UD PRN; Protocol PRN Reason: Hypoglycemia Protocol Stop: 12/13/19 19:45 Heparin Sodium (Porcine) (Heparin Sod 5,000 Unit/0.5 Ml Vial) 5,000 units SQ Q8 [facility] Stop: 12/13/19 21:59 Last Admin: 11/15/19 13:06 Dose: 5,000 units Documented by: Hydromorphone HCl (Hydromorphone Hcl 2 Mg Tab) 2 mg PO Q4 PRN PRN Reason: Pain Stop: 11/27/19 19:45 Piperacillin Sod/Tazobactam (Sod 3.375 gm/ Dextrose) 115 mls @ 28.75 mls/hr IV Q8H CARMEN; Protocol Stop: 11/21/19 01:59 Last Infusion: 11/15/19 13:06 Dose: Infused Documented by: Insulin Aspart (Insulin Aspart 100 Units/Ml 3 Ml Pen) 0 units SC ACHS [facility] Stop: 12/13/19 20:59 Last Admin: 11/15/19 13:08 Dose: 3 units Documented by: Miscellaneous (Carbohydrates For Hypoglycemia ) 15 - 30 gm PO UD PRN PRN Reason: Hypoglycemia Protocol Stop: 12/13/19 19:45 Miscellaneous Information (Piperacill/Tazobac Consult Active) 1 ea N/A UD PRN PRN Reason: Consult Stop: 12/13/19 20:19 Morphine Sulfate (Morphine Sulfate Cr 15 Mg Tabcr) 30 mg PO Q12 [facility] Stop: 11/27/19 20:59 Last Admin: 11/15/19 08:12 Dose: 30 mg Documented by: Multivitamins (Multivitamin Tab) 1 tab PO DAILY [facility] Stop: 12/14/19 08:59 Last Admin: 11/15/19 08:13 Dose: 1 tab Documented by: Multivitamins/Minerals (Calcium 600mg + Vit D 400 Iu Tab) 1 tab PO BID [facility] Stop: 12/13/19 20:59 Last Admin: 11/15/19 08:12 Dose: 1 tab Documented by: Ondansetron HCl (Ondansetron Inj 2 Mg/Ml 2 Ml Vial) 4 mg IV Q6H PRN PRN Reason: Nausea Stop: 12/13/19 19:45 Polyethylene Glycol (Polyethylene (Miralax) 17 Gm Pack) 17 gm PO DAILY PRN PRN Reason: Constipation Stop: 12/13/19 19:45
[2019-11-16] MEDS: PIPERACILLIN/TAZOBACTAM 3.375 GM in DEXTROSE 5% 100 ML IV SCH (02:58)
[2019-11-16] MEDS: HEPARIN SOD 5,000 UNIT/0.5 ML VIAL SQ SCH ×3 (06:41→22:02)
[2019-11-16 07:40] LABS: Hematocrit (blood only) 27.8 % (42-52); Hemoglobin 9.1 g/dL (14.0-18.0); Mean Corpuscular Hemoglobin 29.3 pg (25-34); Mean Corpuscular Hgb Conc 32.7 g/dL (32-36); Mean Corpuscular Volume 89.4 fL (80-100); Mean Platelet Volume 10.4 fL (7.4-10.4); Platelet Count 317 K/uL (130-400); RDW Coefficient of Variation 15.3 % (11.5-14.5); RDW Standard Deviation 49.9 fL (36.4-46.3); Red Blood Count 3.11 M/uL (4.7-6.1); White Blood Count 7.44 K/uL (4.8-10.8)
[2019-11-16] MEDS: ASPIRIN 81 MG ECTAB PO SCH (08:17)
[2019-11-16] MEDS: DOCUSATE SODIUM 100 MG CAP PO SCH ×2 (08:17→20:20)
[2019-11-16] MEDS: MULTIVITAMIN TAB PO SCH (08:17)
[2019-11-16] MEDS: ATORVASTATIN 40 MG TAB PO SCH (08:18)
[2019-11-16] MEDS: CALCIUM 600MG + VIT D 400 IU TAB PO SCH ×2 (08:18→20:12)
[2019-11-16] MEDS: INSULIN ASPART 100 UNITS/ML 3 ML PEN SC SCH ×4 (08:21→20:17)
[2019-11-16] MEDS: MoRPHine SULFATE CR 15 MG TABCR PO SCH ×2 (08:21→20:11)
[2019-11-16 08:59] LABS: BUN Creatinine Ratio 22.9 (10-20); Calcium 8.2 mg/dl (8.5-10.1); Creatinine Clr Calc Pharmacy 45.5 ml/min; Est GFR (African American) 57.4; Est GFR (Non-African American) 49.5; Magnesium 2.6 mg/dl (1.8-2.4); Potassium 4.1 mmol/L (3.5-5.1)
[2019-11-16] MEDS: AMOXICILLIN/CLAVULANATE 875 MG TAB PO SCH ×2 (10:07→17:33)
--- NOTE | 2019-11-16 16:35 | Palliative Care Consultation ---
Date of Consultation November 16, 2019 Assessment & Plan (1) Palliative care encounter: This is a 79 year old male who presented to the [facility] from home with generalized weakness, constipation, and atypical chest pain. Additional PMH includes metastatic prostate cancer (on Leupron and Xgenva) and sees Dr. Gibbs, CKD3, and DM2. The patient was also noted to have leukocytosis with a WBC of 14.47. He was started on IV antibiotics. An EKG was obtained and unremarkable. It was noted that he has bony metastasis causing his atypical chest pain. Palliative Care was consulted to discuss goals of care. -I met with the patient in room 279. He was lying in his hospital bed in no apparent distress. No family at the bedside. -Patient was AAOx3. We discussed his current hospitalization and symptoms. Hospitalist starting -He expressed that he understands things are not progressing in the right direction. -When talking about his home demographics, he lives on [address] [place] in a mobile home with his , Archana. -He expressed he has 7 children, multiple grandchildren and great-grandchildren. 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 -He expressed that his is well, but he helps to take care of her too. She has confusion. -When discussing goals of care we discussed hospice both at home and at a SNF. Unfortunately, the patient would require 24/7 care at home in order to return home safely. -With the patients permission, I reached out to his and left a VM. I did talk directly to his daughter, Janel. -She reiterated that returning home with 24/7 care would not be financially feasible, nor can the children commit to covering shifts 24/7. -We discussed at length the option of a SNF with some skilled service (if possible for strength) and a transition to hospice. I confirmed this with the patient who agreed to this as well. -Pt daughter mentioned [facility] in [place]. I explained [facility] -Email sent to case management to explain above. PT/OT orders are in. 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 Solano Attending Physician: Kristine Solano, DO History of Present Illness This is a 79 year old male who presented to the [facility] from home with generalized weakness, constipation, and atypical chest pain. Additional PMH includes metastatic prostate cancer (on Leupron and Xgenva) and sees Dr. Gibbs, CKD3, and DM2. The patient was also noted to have leukocytosis with a WBC of 14. 47. He was started on IV antibiotics. An EKG was obtained and unremarkable. It was noted that he has bony metastasis causing his atypical chest pain. Palliative Care was consulted to discuss goals of care. Please see A/P for further details. Thank you kindly for involving the palliative care team with this patient. Allergies Allergy/AdvReac Type Severity Reaction Status Date / Time No Known Allergies Allergy Verified 11/02/19 02:21 Home Medications Home Medications Medication Instructions Recorded Confirmed Type atorvastatin [Lipitor] 40 mg PO DAILY 10/31/19 11/13/19 History Xgeva 120 mg SUBCUT USEASDIRECTD 11/01/19 11/13/19 History metformin 1,000 mg PO BID 11/01/19 11/13/19 History docusate sodium 100 mg PO BID PRN #60 cap 11/02/19 11/13/19 Rx aspirin [Aspir-81] 81 mg PO DAILY 11/13/19 11/13/19 History calcium carbonate-vitamin D3 1 tab PO BID 11/13/19 11/13/19 History [Calcium 500 + D (D3)] hydromorphone [Dilaudid] 4 mg PO Q4 PRN 11/13/19 11/13/19 History morphine [MS Contin] 30 mg PO Q12 11/13/19 11/13/19 History multivitamin 1 tab PO DAILY 11/13/19 11/13/19 History Patient History Medical History Atypical chest pain CKD (chronic kidney disease), stage III DMII (diabetes mellitus, type 2) Metastatic disease Palliative care encounter Prostate cancer Surgical History History of carpal tunnel surgery Family History Other Diabetes Social History Smoking Status: Former smoker Tobacco Type: Cigarettes Second Hand Exposure: No; Hx Alcohol Use: No Hx Substance Use: No Preferred Language: Faroese Communication Ability: Effective [employer] 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 Beliefs That Will Affect Care: None marital status: Current Living Situation: Spouse Other Information That Helps Us Care for You: No Feels Safe at Home: Yes Safety Concerns: Feels Safe At This Time Assistive Devices: None Physical Exam Constitutional: well developed, + ill appearing, cooperative and comfortable Respiratory: normal respiratory effort, lungs clear to auscultation Cardiovascular: Heart Sounds: normal S1 and normal S2 Gastrointestinal (Abdomen): Inspection/Auscultation: abdomen normal to inspection and normal bowel sounds Percussion/Palpation: abdomen soft Skin: no rashes, warm and dry Psychiatric: A+Ox3, euthymic affect Results & Data ([facility]) Vital Signs (Past 12 Hours) Vital Signs Temp Pulse Resp BP Pulse Ox 11/16/19 15:39 37.4 C 104 H 20 131/76 90 11/16/19 11:42 36.6 C 88 16 111/73 94 11/16/19 07:50 36.8 C 82 18 116/78 94 PG Care Time/CCT Total # of Minutes Spent Total Time Spent with Patient: Total time spent is greater than 50% in coordination of care (as documented) at patient's floor/unit and/or counseling patient:100 Coding Level of Care Code 80335 Inpt Consult Level 4 Diagnoses Palliative care encounter Z51.5 Generalized weakness R53.1 CKD (chronic kidney disease), stage III N18.3 Metastatic disease C79.9 Time Spent (min) 100 Time Spent Midlevel Total time spent 100 minutes with > 50% of that time spent assessing the patient, discussing goals of care, completing a POLST form, and discussing with family and IDT.
[2019-11-16] MEDS: ACETAMINOPHEN 325 MG TAB PO PRN (19:47)
[2019-11-16] MEDS ORDERED: SODIUM CHLORIDE 0.9% 1000ML 1,000 ML IV ONE (19:57)
[2019-11-16] MEDS: guaiFENesin 600 MG TABCR PO SCH (20:11)
--- NOTE | 2019-11-16 22:08 | Hospitalist Progress Note ---
Date of Service November 16, 2019 Assessment & Plan (1) Pneumonia: Clinically improved with respect to weakness and breathing. He is off supplemental oxygen and doing well. He still has too much weakness to ambulate. Still intermittently having some cough just trying to clear mucous. Will add flutter calve and Mucinex. Leukocytosis resolved. Afebrile. Switched to Augmentin. (2) Generalized weakness: Likely related to diffuse metastatic prostate disease as well as pneumonia superinfection. Multiple additional contributing factors likely present from comorbidities, stress, etc. Overall feels improved with treatment for pneumonia. Continue working with therapy. Fall precautions. Improving but cannot walk independently. (3) Constipation: Opiate-induced constipation from scheduled morphine. Patient reports having a bowel movement today and daily. Abdominal distention is improved today. +flatus and +BMs. Continue Colace twice daily and MiraLAX as needed. (4) Atypical chest pain: Cont current pain regimen for intermittent pain-appears controlled. (5) Metastatic disease: Prostate cancer with diffuse metastatic disease present. Palliate as needed. Per palliative care discussion. (6) Prostate cancer: Follows with Dr. Gibbs. Regimen includes Lupron and Xgeva. Multifocal osteoblastic metastatic disease re-demonstrated (7) DMII (diabetes mellitus, type 2): -Hold home agents -SSI while in-patient; he is currently at goal inpatient glucose. -BSG AC HS (8) Acute worsening of stage 3 chronic kidney disease: resolved to baseline. trend BMP in am. (9) DVT prophylaxis: Heparin DNR/DNI Dispo-uncertain at this time. He is feeling stronger but is not strong enough to ambulate or go home safely. Will continue to monitor and having goals of care discussion with him. Palliative is also consulted for assistance with goalss of care. Kristine Solano DO [facility] and [facility]ticipated Discharge Date Admission Date: November 15, 2019 Subjective doing well afebrile still trying to clear some mucous tolerating PO weakness has improved but still cannot walk discussed plans from here and pat doesn't know Pall care consult this afternoon Review of Systems Review of Systems: All systems reviewed & are unremarkable except as noted in Subjective Physical Exam Physical Exam: CONSTITUTIONAL: thin, frail, vitals as above, generally well- appearing EYES: pupils are round and equal bilaterally, normal conjunctivae, no scleral icterus ENT: external ear and nose normal, oropharynx clear, MMM RESPIRATORY: clear to auscultation bilaterally, no crackles, rales or wheezes, normal respiratory effort CARDIOVASCULAR: regular rate and rhythm, S1 and 2 heard without murmurs, gallops or rubs, no JVD, no peripheral edema GASTROINTESTINAL: normal bowel sounds, soft, nontender, slight distension but less than yesterday MUSCULOSKELETAL: generalized weakness but moving all extremities equally, head is normocephalic and atraumatic SKIN: warm and dry NEUROLOGIC: CN 2-12 grossly intact, normal cognition, normal speech PSYCHIATRIC: alert cooperative and oriented to person, place and time. Results & Data Results & Data ([facility]) Vital Signs (Past 12 Hours) Vital Signs Temp Pulse Resp BP Pulse Ox 11/16/19 21:35 37.5 C 11/16/19 19:39 38.9 C H 114 H 16 113/76 96 11/16/19 15:39 37.4 C 104 H 20 131/76 90 11/16/19 11:42 36.6 C 88 16 111/73 94 Laboratory Results Short CBC 11/16/19 Range/Units 07:22 WBC 7.44 (4.8-10.8) K/uL Hgb 9.1 L (14.0-18.0) g/dL Hct 27.8 L (42-52) % Plt Count 317 (130-400) K/uL BMP 11/16/19 07:22 Sodium 138 Potassium 4.1 Chloride 106 Carbon Dioxide 25 BUN 31 H Creatinine 1.36 D Glucose 125 H Calcium 8.2 L Medications Administered Current Inpatient Medications Acetaminophen (Acetaminophen 325 Mg Tab) 650 mg PO Q4H PRN PRN Reason: pain/fever Stop: 12/13/19 19:45 Last Admin: 11/16/19 19:47 Dose: 650 mg Documented by: Amoxicillin/Clavulanate Potassium (Amoxicillin/Clavulanate 875 Mg Tab) 1 tab PO BIDM [facility] Stop: 11/20/19 09:39 Last Admin: 11/16/19 17:33 Dose: 1 tab Documented by: Aspirin (Aspirin 81 Mg Ectab) 81 mg PO DAILY [facility] Stop: 12/14/19 08:59 Last Admin: 11/16/19 08:17 Dose: 81 mg Documented by: Atorvastatin Calcium (Atorvastatin 40 Mg Tab) 40 mg PO DAILY [facility] Stop: 12/14/19 08:59 Last Admin: 11/16/19 08:18 Dose: 40 mg Documented by: Dextrose (Dextrose 50% 50 Ml Syringe) 25 - 50 ml IV UD PRN; Protocol PRN Reason: Hypoglycemia Protocol Stop: 12/13/19 19:45 Docusate Sodium (Docusate Sodium 100 Mg Cap) 100 mg PO BID CARMEN Stop: 12/13/19 20:59 Last Admin: 11/16/19 20:20 Dose: 100 mg Documented by: Glucagon (Glucagon For Inj 1 Mg Vial) 1 mg SQ UD PRN; Protocol PRN Reason: Hypoglycemia Protocol Stop: 12/13/19 19:45 Glucose (Glucose 10 Tabs/Tube) 4 - 8 tabs PO UD PRN; Protocol PRN Reason: Hypoglycemia Protocol Stop: 12/13/19 19:45 Glucose (Glucose 40% Gel 15 Gm Tube) 15 - 30 gm PO UD PRN; Protocol PRN Reason: Hypoglycemia Protocol Stop: 12/13/19 19:45 Guaifenesin (Guaifenesin 600 Mg Tabcr) 600 mg PO Q12 CARMEN Stop: 12/16/19 20:59 Last Admin: 11/16/19 20:11 Dose: 600 mg Documented by: Heparin Sodium (Porcine) (Heparin Sod 5,000 Unit/0.5 Ml Vial) 5,000 units SQ Q8 CARMEN Stop: 12/13/19 21:59 Last Admin: 11/16/19 22:02 Dose: 5,000 units Documented by: Hydromorphone HCl (Hydromorphone Hcl 2 Mg Tab) 2 mg PO Q4 PRN PRN Reason: Pain Stop: 11/27/19 19:45 Sodium Chloride (Nss 1000ml) 1,000 mls @ 200 mls/hr IV .Q5H ONE Stop: 11/17/19 00:56 Last Admin: 11/16/19 20:13 Dose: 200 mls/hr Documented by: Insulin Aspart (Insulin Aspart 100 Units/Ml 3 Ml Pen) 0 units SC ACHS CARMEN Stop: 12/13/19 20:59 Last Admin: 11/16/19 20:17 Dose: Not Given Documented by: Miscellaneous (Carbohydrates For Hypoglycemia ) 15 - 30 gm PO UD PRN PRN Reason: Hypoglycemia Protocol Stop: 12/13/19 19:45 Morphine Sulfate (Morphine Sulfate Cr 15 Mg Tabcr) 30 mg PO Q12 CARMEN Stop: 11/27/19 20:59 Last Admin: 11/16/19 20:11 Dose: 30 mg Documented by: Multivitamins (Multivitamin Tab) 1 tab PO DAILY [facility] Stop: 12/14/19 08:59 Last Admin: 11/16/19 08:17 Dose: 1 tab Documented by: Multivitamins/Minerals (Calcium 600mg + Vit D 400 Iu Tab) 1 tab PO BID [facility] Stop: 12/13/19 20:59 Last Admin: 11/16/19 20:12 Dose: 1 tab Documented by: Ondansetron HCl (Ondansetron Inj 2 Mg/Ml 2 Ml Vial) 4 mg IV Q6H PRN PRN Reason: Nausea Stop: 12/13/19 19:45 Polyethylene Glycol (Polyethylene (Miralax) 17 Gm Pack) 17 gm PO DAILY PRN PRN Reason: Constipation Stop: 12/13/19 19:45
[2019-11-17] MEDS: HEPARIN SOD 5,000 UNIT/0.5 ML VIAL SQ SCH ×3 (05:32→21:09)
[2019-11-17 07:29] LABS: BUN Creatinine Ratio 23.1 (10-20); Calcium 7.3 mg/dl (8.5-10.1); Creatinine Clr Calc Pharmacy 49.1 ml/min; Est GFR (African American) 69.5; Potassium 4.5 mmol/L (3.5-5.1)
[2019-11-17] MEDS: MoRPHine SULFATE CR 15 MG TABCR PO SCH ×2 (08:45→20:56)
[2019-11-17] MEDS: AMOXICILLIN/CLAVULANATE 875 MG TAB PO SCH ×2 (08:45→17:37)
[2019-11-17] MEDS: ASPIRIN 81 MG ECTAB PO SCH (08:46)
[2019-11-17] MEDS: CALCIUM 600MG + VIT D 400 IU TAB PO SCH ×2 (08:46→20:56)
[2019-11-17] MEDS: guaiFENesin 600 MG TABCR PO SCH ×2 (08:46→20:57)
[2019-11-17] MEDS: MULTIVITAMIN TAB PO SCH (08:46)
[2019-11-17] MEDS: ATORVASTATIN 40 MG TAB PO SCH (08:47)
[2019-11-17] MEDS: INSULIN ASPART 100 UNITS/ML 3 ML PEN SC SCH ×4 (08:49→21:09)
[2019-11-17] MEDS ORDERED: DEXAMETHASONE SOD INJ 10 MG/ML VIAL IV STA (14:24)
[2019-11-17] MEDS ORDERED: DEXAMETHASONE SOD PHOSPHATE 10 MG in SYRINGE 0 ML IV STA (14:40)
--- NOTE | 2019-11-17 15:32 | XRay Report ---
[facility] RADIOGRAPHS 3 VIEWS HISTORY: pre-MRI screening. COMPARISON: None. FINDINGS: There are no radiopaque foreign bodies identified within the orbits. IMPRESSION: No radiopaque foreign bodies identified within the orbits. ACT 112: Negative or not required by law. Electronically signed by: Feng Brownlee M.D. 11/17/2019 3:31 PM
[2019-11-17] MEDS ORDERED: GADOBUTROL 65ML VIAL IV ONE (16:48)
--- NOTE | 2019-11-17 17:13 | Magnetic Resonance Report ---
MRI OF THE THORACIC SPINE WITH AND WITHOUT CONTRAST CLINICAL HISTORY: Cord compression. Prostate cancer. COMPARISON: None. TECHNIQUE: Utilizing a 1.5 Jane magnet and dedicated coil, multiplanar, multiecho imaging of the th oracic spine was performed before and after the intravenous administration of 7 cc. FINDINGS: Note is made of extensive multifocal marrow replacement within the lower cervical spine, th oracic spine and upper lumbar spine. There are multiple pathologic compression fractures with mild lo ss of vertebral body height. Of note, there is extensive intracanalicular extension of tumor at the T 3-T4 level. Intracanalicular tumor measures 4.9 x 1.5 x 1.3 cm and is noted within the left aspect of the canal at this level. This results in severe central canal narrowing with moderate mass effect up on the cord which is displaced rightward. The cord signal is suboptimally assessed on this exam due t o motion artifact. There is associated severe stenosis of the left T3-T4 and T4-T5 neural foramen. In tracanalicular tumor appears partially necrotic. Cord signal is suboptimally assessed on this exam bu t there is suspected mild cord edema. No additional sites of intracanalicular extension of tumor are noted. Otherwise, the central canal and neural foramen are patent. IMPRESSION: 1. Intracanalicular extension of tumor at the T3-T4 level with tumor within the left aspect of the ca nal at these levels. This results in severe mass effect upon the cord which is displaced rightward. P robable mild cord edema. Surgical or Radiation Oncology consultation is recommended. Associated sever e stenosis of the left T3-T4 and T4-T5 neural foramen. This finding will be called/faxed to the order ing provider at time of dictation. 2. Extensive multifocal marrow replacement consistent with skeletal metastatic disease with multiple pathologic fractures within the thoracic and lumbar spines. ACT 112: Negative or not required by law. Electronically signed by: Agapito Weller M.D. 11/17/2019 5:12 PM
--- NOTE | 2019-11-17 17:20 | Magnetic Resonance Report ---
MRI OF THE CERVICAL SPINE WITH AND WITHOUT CONTRAST CLINICAL HISTORY: Cord compression. Metastatic prostate cancer. COMPARISON: None. TECHNIQUE: Utilizing a 1.5 Jane magnet and dedicated coil, multiplanar, multiecho imaging of the ce rvical spine was performed before and after intravenous administration of 7 of Gadavist. FINDINGS: Exam is mildly compromised by motion artifact. Multifocal marrow replacement is noted within the cerv ical spine and the thoracic spine. There is slight loss of height of the inferior endplate of C4 as w ell as the inferior endplate of C5 and C7. Cervical cord signal suboptimally assessed on this exam du e to motion artifact. However there is no definite cord signal abnormality. There is no intracanalicu lar mass or fluid collection within the cervical canal. Intracanalicular mass to T3-T4 level with cor d compression is better depicted on the MRI of the thoracic spine. Paravertebral soft tissues are unr emarkable. C2-C3: The central canal is patent. There is mild narrowing of the right neural foramen. C3-C4: Posterior disc osteophyte complex results in mild to moderate central canal narrowing. There is moderate right neural foraminal stenosis. C4-C5: Posterior disc osteophyte complex results in mild to moderate central canal narrowing. There is mild bilateral neural foraminal stenosis. C5-C6: Posterior disc osteophyte complex results in mild central canal narrowing. There is moderate bilateral neural foraminal stenosis. C6-C7: Central canal is patent. There is moderate left neural foraminal stenosis. C7-T1: Central canal and neural foramen are patent. IMPRESSION: 1. Exam compromised by motion artifact but no intracanalicular mass within the cervical spine. Intrac analicular tumor at the T3-T4 level with cord compression is better depicted on the MRI of the thorac ic spine. Please see that report for further description. 2. Multifocal marrow replacement within the cervical and thoracic spine consistent with skeletal meta static disease. Several mild pathologic fractures within the cervical spine. 3. Moderate multilevel degenerative disc disease and facet arthrosis, as described above. ACT 112: Negative or not required by law. Electronically signed by: Agapito Weller M.D. 11/17/2019 5:19 PM
--- NOTE | 2019-11-17 19:11 | Hospitalist Progress Note ---
Date of Service November 17, 2019 Assessment & Plan (1) Spinal cord compression due to malignant neoplasm metastatic to spine: severe mass effect on the cord which is displaced by impinging tumor invasion into this area. Severe mass effect on the cord and probable mild cord edema. Associated severe stenosis of the left T3-T4 and T4-T5 neural foramen on MRI t-spine this evening. Discussed case with Dr. Pedersen who evaluated patient, films and discussed the options with the patient at bedside and with his daughter by phone tonight. The decompression surgery would be difficult also because there are multiple pathologic fractures and not much to provide anchor for any rods/screws. Also of consideration is that he may not have long to live and would be spending that time healing from a wound. Additionally, he would have to do this in [facility] which is 100 miles away from family. Furthermore, is home with dementia and kids are helping to care for her. HE can still receive palliative XRT on Wednesday here per Dr. Ashley Gibbs. He received decadron 10 IV pre-MRI and after conversation with the [facility] spine surgeon, that patient and Dr. Pedersen he opted to stay here and cont steroids over the weekend with palliative XRT on Wednesday and no surgery at this time. (2) Pneumonia: Improved, cont augmentin. Repeat CXR in 4 weeks to ensure complete resolution. (3) Constipation: stool incontinence overnight in setting of acute cord compression. He has had multiple BMs today. (4) Atypical chest pain: Pain controlled with opiate therapy. (5) Metastatic disease: Prostate cancer with diffuse metastatic disease present. Palliate as needed. Per palliative care discussion. Plan for cord syndrom as above. (6) Prostate cancer: Follows with Dr. Gibbs. Regimen includes Lupron and Xgeva. Multifocal osteoblastic metastatic disease re-demonstrated. Very progressed. (7) DMII (diabetes mellitus, type 2): -Hold home agents -SSI while in-patient; he is currently at goal inpatient glucose. Increase sliding scale with steroids on board now. Added glycemic pharmacy consultation. -BSG AC HS (8) Acute worsening of stage 3 chronic kidney disease: resolved to baseline. However, just hasd MRI contrast this evening. Cont to monitor BMP for changes. (9) DVT prophylaxis: Heparin DNR/DNI Dispo-ultimately SNF with transition to Hospice, however, with new acute cord compression, will stay the weekend on scheduled steroids and start a palliative XRT regimen on Wednesday per Dr. Ashley Gibbs. Kristine Solano DO [facility] Hospitalist Admission and Anticipated Discharge Date Admission Date: November 15, 2019 Subjective Persistent leg weakness and developed stool incontinence with urgency per patient overnight in addition to acute urinary retention. Pt denies pain, but cannot walk. Concern for acute cord compression. Tolerating PO and frmo a pneumonia standpoint, he is improved. He denies coughing and is breathing better. Tm was 38.9C with a HR 114 yesterday evening around 8pm. He received a 1L NSS bolus of fluid and temp resolved with improvement in HR. Review of Systems Review of Systems: All systems reviewed & are unremarkable except as noted in Subjective Physical Exam Physical Exam: CONSTITUTIONAL: thin, frail, vitals as above, generally well- appearing EYES: pupils are round and equal bilaterally, normal conjunctivae, no scleral icterus ENT: external ear and nose normal, oropharynx clear, MMM RESPIRATORY: clear to auscultation bilaterally, no crackles, rales or wheezes, normal respiratory effort CARDIOVASCULAR: regular rate and rhythm, S1 and 2 heard without murmurs, gallops or rubs, no JVD, no peripheral edema GASTROINTESTINAL: normal bowel sounds, soft, nontender, nondistended MUSCULOSKELETAL: Both legs are generally weak but he can move his legs against gravity to some extent. Pt have loss of sensation and has no proprioception in his legs and feet. Cannot tell me toe direction when he closes his eyes. Unable to walk independently. Ggrip strength 2+, upper extremities are 5/5 throughout with some limitations in the RUE. SKIN: warm and dry NEUROLOGIC: CN 2-12 grossly intact, normal cognition, normal speech. Decreased sensation and proprioception in bilateral legs and toes. Cannot walk or transfer positions on his own. Examines as an acute cord compression. PSYCHIATRIC: alert cooperative and oriented to person, place and time. Results & Data Results & Data ([facility]) Vital Signs (Past 12 Hours) Vital Signs Temp Pulse Resp BP Pulse Ox 11/17/19 11:31 36.7 C 86 18 120/79 96 11/17/19 07:22 36.8 C 90 19 106/71 97 Laboratory Results [facility] 11/17/19 06:34 Sodium 141 Potassium 4.5 Chloride 111 H Carbon Dioxide 24 BUN 27 H Creatinine 1.16 Glucose 113 H Calcium 7.3 L Diagnostic Findings MRI OF THE THORACIC SPINE WITH AND WITHOUT CONTRAST CLINICAL HISTORY: Cord compression. Prostate cancer. COMPARISON: None. TECHNIQUE: Utilizing a 1.5 Jane magnet and dedicated coil, multiplanar, multi echo imaging of the thoracic spine was performed before and after the intravenous administration of 7 cc. FINDINGS: Note is made of extensive multifocal marrow replacement within the lower cervical spine, thoracic spine and upper lumbar spine. There are multiple pathologic compression fractures with mild loss of vertebral body height. Of note, there is extensive intracanalicular extension of tumor at the T3-T4 level. Intracanalicular tumor measures 4.9 x 1.5 x 1.3 cm and is noted within the left aspect of the canal at this level. This results in severe central canal narrowing with moderate mass effect upon the cord which is displaced rightward. The cord signal is suboptimally assessed on this exam due to motion artifact. There is associated severe stenosis of the left T3-T4 and T4-T5 neural foramen. Intracanalicular tumor appears partially necrotic. Cord signal is suboptimally assessed on this exam but there is suspected mild cord edema. No additional sites of intracanalicular extension of tumor are noted. Otherwise, the central canal and neural foramen are patent. IMPRESSION: 1. Intracanalicular extension of tumor at the T3-T4 level with tumor within the left aspect of the canal at these levels. This results in severe mass effect upon the cord which is displaced rightward. Probable mild cord edema. Surgical or Radiation Oncology consultation is recommended. Associated severe stenosis of the left T3-T4 and T4-T5 neural foramen. This finding will be called/faxed to the ordering provider at time of dictation. 2. Extensive multifocal marrow replacement consistent with skeletal metastatic disease with multiple pathologic fractures within the thoracic and lumbar spines. MRI OF THE CERVICAL SPINE WITH AND WITHOUT CONTRAST CLINICAL HISTORY: Cord compression. Metastatic prostate cancer. COMPARISON: None. TECHNIQUE: Utilizing a 1.5 Jane magnet and dedicated coil, multiplanar, multiecho imaging of the cervical spine was performed before and after intravenous administration of 7 of Gadavist. FINDINGS: Exam is mildly compromised by motion artifact. Multifocal marrow replacement is noted within the cervical spine and the thoracic spine. There is slight loss of height of the inferior endplate of C4 as well as the inferior endplate of C5 and C7. Cervical cord signal suboptimally assessed on this exam due to motion artifact. However there is no definite cord signal abnormality. There is no intracanalicular mass or fluid collection within the cervical canal. Intracanalicular mass to T3-T4 level with cord compression is better depicted on the MRI of the thoracic spine. Paravertebral soft tissues are unremarkable. C2-C3: The central canal is patent. There is mild narrowing of the right neural foramen. C3-C4: Posterior disc osteophyte complex results in mild to moderate central canal narrowing. There is moderate right neural foraminal stenosis. C4-C5: Posterior disc osteophyte complex results in mild to moderate central canal narrowing. There is mild bilateral neural foraminal stenosis. C5-C6: Posterior disc osteophyte complex results in mild central canal narrowing. There is moderate bilateral neural foraminal stenosis. C6-C7: Central canal is patent. There is moderate left neural foraminal stenosis. C7-T1: Central canal and neural foramen are patent. IMPRESSION: 1. Exam compromised by motion artifact but no intracanalicular mass within the cervical spine. Intracanalicular tumor at the T3-T4 level with cord compression is better depicted on the MRI of the thoracic spine. Please see that report for further description. 2. Multifocal marrow replacement within the cervical and thoracic spine consistent with skeletal metastatic disease. Several mild pathologic fractures within the cervical spine. 3. Moderate multilevel degenerative disc disease and facet arthrosis, as described above. Medications Administered Current Inpatient Medications Acetaminophen (Acetaminophen 325 Mg Tab) 650 mg PO Q4H PRN PRN Reason: pain/fever Stop: 12/13/19 19:45 Last Admin: 11/16/19 19:47 Dose: 650 mg Documented by: Amoxicillin/Clavulanate Potassium (Amoxicillin/Clavulanate 875 Mg Tab) 1 tab PO BIDM [facility] Stop: 11/20/19 09:39 Last Admin: 11/17/19 17:37 Dose: 1 tab Documented by: Aspirin (Aspirin 81 Mg Ectab) 81 mg PO DAILY [facility] Stop: 12/14/19 08:59 Last Admin: 11/17/19 08:46 Dose: 81 mg Documented by: Atorvastatin Calcium (Atorvastatin 40 Mg Tab) 40 mg PO DAILY [facility] Stop: 12/14/19 08:59 Last Admin: 11/17/19 08:47 Dose: 40 mg Documented by: Dexamethasone (Dexamethasone Sod Inj 10 Mg/Ml Vial) 10 mg IV Q6H [facility] Stop: 12/17/19 20:59 Dextrose (Dextrose 50% 50 Ml Syringe) 25 - 50 ml IV UD PRN; Protocol PRN Reason: Hypoglycemia Protocol Stop: 12/13/19 19:45 Docusate Sodium (Docusate Sodium 100 Mg Cap) 100 mg PO BID [facility] Stop: 12/13/19 20:59 Last Admin: 11/16/19 20:20 Dose: 100 mg Documented by: Glucagon (Glucagon For Inj 1 Mg Vial) 1 mg SQ UD PRN; Protocol PRN Reason: Hypoglycemia Protocol Stop: 12/13/19 19:45 Glucose (Glucose 10 Tabs/Tube) 4 - 8 tabs PO UD PRN; Protocol PRN Reason: Hypoglycemia Protocol Stop: 12/13/19 19:45 Glucose (Glucose 40% Gel 15 Gm Tube) 15 - 30 gm PO UD PRN; Protocol PRN Reason: Hypoglycemia Protocol Stop: 12/13/19 19:45 Guaifenesin (Guaifenesin 600 Mg Tabcr) 600 mg PO Q12 [facility] Stop: 12/16/19 20:59 Last Admin: 11/17/19 08:46 Dose: 600 mg Documented by: Heparin Sodium (Porcine) (Heparin Sod 5,000 Unit/0.5 Ml Vial) 5,000 units SQ Q8 [facility] Stop: 12/13/19 21:59 Last Admin: 11/17/19 13:04 Dose: 5,000 units Documented by: Hydromorphone HCl (Hydromorphone Hcl 2 Mg Tab) 2 mg PO Q4 PRN PRN Reason: Pain Stop: 11/27/19 19:45 Insulin Aspart (Insulin Aspart 100 Units/Ml 3 Ml Pen) 0 units SC ACHS [facility] Stop: 12/13/19 20:59 Last Admin: 11/17/19 18:02 Dose: 1 units Documented by: Miscellaneous (Carbohydrates For Hypoglycemia ) 15 - 30 gm PO UD PRN PRN Reason: Hypoglycemia Protocol Stop: 12/13/19 19:45 Morphine Sulfate (Morphine Sulfate Cr 15 Mg Tabcr) 30 mg PO Q12 [facility] Stop: 11/27/19 20:59 Last Admin: 11/17/19 08:45 Dose: 30 mg Documented by: Multivitamins (Multivitamin Tab) 1 tab PO DAILY [facility] Stop: 12/14/19 08:59 Last Admin: 11/17/19 08:46 Dose: 1 tab Documented by: Multivitamins/Minerals (Calcium 600mg + Vit D 400 Iu Tab) 1 tab PO BID [facility] Stop: 12/13/19 20:59 Last Admin: 11/17/19 08:46 Dose: 1 tab Documented by: Ondansetron HCl (Ondansetron Inj 2 Mg/Ml 2 Ml Vial) 4 mg IV Q6H PRN PRN Reason: Nausea Stop: 12/13/19 19:45 Polyethylene Glycol (Polyethylene (Miralax) 17 Gm Pack) 17 gm PO DAILY PRN PRN Reason: Constipation Stop: 12/13/19 19:45
[2019-11-17] MEDS: DEXAMETHASONE SOD PHOSPHATE 10 MG in SYRINGE 0 ML IV SCH (20:57)
[2019-11-17] MEDS ORDERED: DEXAMETHASONE SOD INJ 10 MG/ML VIAL IV SCH (21:00)
[2019-11-17] MEDS ORDERED: PHARMACY GLYCEMIC MGMT CONSULT PRN (23:38)
[2019-11-18] MEDS ORDERED: INSULIN GLARGINE SOLOSTAR 100 UNITS/ML 3 ML PEN SC ONE ×2 (00:30→09:00)
[2019-11-18] MEDS: INSULIN ASPART 100 UNITS/ML 3 ML PEN SC SCH ×6 (00:39→20:37)
[2019-11-18] MEDS: DEXAMETHASONE SOD PHOSPHATE 10 MG in SYRINGE 0 ML IV SCH ×4 (02:59→20:31)
[2019-11-18] MEDS: HEPARIN SOD 5,000 UNIT/0.5 ML VIAL SQ SCH (06:23)
[2019-11-18 07:33] LABS: Hemoglobin 9.5 g/dL (14.0-18.0); Mean Corpuscular Hemoglobin 28.4 pg (25-34); Mean Corpuscular Hgb Conc 31.7 g/dL (32-36); Mean Corpuscular Volume 89.8 fL (80-100); Mean Platelet Volume 10.5 fL (7.4-10.4); Platelet Count 379 K/uL (130-400); RDW Coefficient of Variation 15.2 % (11.5-14.5); RDW Standard Deviation 50.4 fL (36.4-46.3); Red Blood Count 3.34 M/uL (4.7-6.1); White Blood Count 8.38 K/uL (4.8-10.8)
[2019-11-18 08:14] LABS: BUN Creatinine Ratio 28.1 (10-20); Calcium 7.9 mg/dl (8.5-10.1); Creatinine Clr Calc Pharmacy 46.3 ml/min; Est GFR (African American) 64.8; Est GFR (Non-African American) 55.9; Potassium 4.6 mmol/L (3.5-5.1)
[2019-11-18] MEDS: ATORVASTATIN 40 MG TAB PO SCH (09:18)
[2019-11-18] MEDS: ASPIRIN 81 MG ECTAB PO SCH (09:18)
[2019-11-18] MEDS: AMOXICILLIN/CLAVULANATE 875 MG TAB PO SCH ×2 (09:18→17:29)
[2019-11-18] MEDS: MULTIVITAMIN TAB PO SCH (09:18)
[2019-11-18] MEDS: CALCIUM 600MG + VIT D 400 IU TAB PO SCH ×2 (09:18→20:33)
[2019-11-18] MEDS: guaiFENesin 600 MG TABCR PO SCH ×2 (09:18→20:34)
[2019-11-18] MEDS: MoRPHine SULFATE CR 15 MG TABCR PO SCH ×2 (09:27→20:54)
--- NOTE | 2019-11-18 10:28 | Orthopedic Consultation ---
Date of Consultation November 18, 2019 Assessment & Plan (1) Spinal cord compression due to malignant neoplasm metastatic to spine: At lung cyst with this patient and his daughter regarding his most recent findings on the MRI and possible treatment plan. IV Decadron has been initiated. There is a discussion for possible radiation therapy. Specifically we discussed surgery. Surgery would be quite extensive in nature and with adjacent level pathologic fracture healing would be compromised. Healing would be considerably compromised and the event there is radiation therapy. Most importantly surgery may not reverse his current neurological neurologic state and in fact placement risk for further pain and deterioration. Patient stands agrees. He is going to consider his options whether transfer to a tertiary care facility is of interest to him and his family. Present on Admission?: Yes History of Present Illness Reason for Consultation: Progressive neurologic weakness to the lower extremities Attending Physician: Kristine Solano, DO History of Present Illness This is a 79-year-old male presents with progressive neurologic deterioration affecting the bilateral lower extremities. He does have known prostate cancer. He is known this for approximately 4 years. There is metastasis throughout the cervical thoracic and lumbar spine. He is noted weakness over the past few days. Recently the symptoms progressed to the point that he was unable to move his legs and ambulate. MRI was obtained demonstrating evidence of tumor at T3 and T4 with significant cord compression. Patient at this time is in no pain. He is alert and oriented throughout our discussion. Allergies Allergy/AdvReac Type Severity Reaction Status Date / Time No Known Allergies Allergy Verified 11/02/19 02:21 Home Medications Home Medications Medication Instructions Recorded Confirmed Type atorvastatin [Lipitor] 40 mg PO DAILY 10/31/19 11/13/19 History Xgeva 120 mg SUBCUT USEASDIRECTD 11/01/19 11/13/19 History metformin 1,000 mg PO BID 11/01/19 11/13/19 History docusate sodium 100 mg PO BID PRN #60 cap 11/02/19 11/13/19 Rx aspirin [Aspir-81] 81 mg PO DAILY 11/13/19 11/13/19 History calcium carbonate-vitamin D3 1 tab PO BID 11/13/19 11/13/19 History [Calcium 500 + D (D3)] hydromorphone [Dilaudid] 4 mg PO Q4 PRN 11/13/19 11/13/19 History morphine [MS Contin] 30 mg PO Q12 11/13/19 11/13/19 History multivitamin 1 tab PO DAILY 11/13/19 11/13/19 History Patient History Medical History Atypical chest pain CKD (chronic kidney disease), stage III DMII (diabetes mellitus, type 2) Metastatic disease Palliative care encounter Prostate cancer Surgical History History of carpal tunnel surgery Family History Other Diabetes Social History Smoking Status: Former smoker Tobacco Type: Cigarettes Second Hand Exposure: No; Hx Alcohol Use: No Hx Substance Use: No Preferred Language: Yemeni Communication Ability: Effective Electron Beam Operator Required: No Beliefs That Will Affect Care: None marital status: Current Living Situation: Spouse Other Information That Helps Us Care for You: No Feels Safe at Home: Yes Safety Concerns: Feels Safe At This Time Assistive Devices: Glasses Physical Exam Physical Exam: On exam he is able to sit up in bed. He demonstrates a 1-2 over 5 left quadriceps and dorsiflexion. He has 0/5 strength testing to the right lower extremity. He appreciates touch. He has difficulty with cold and light sensation. Upper extremities appear to be symmetric and intact. Results & Data ([facility]) Vital Signs (Past 12 Hours) Vital Signs Temp Pulse Resp BP Pulse Ox 11/18/19 07:00 36.6 C 80 20 123/78 97 11/18/19 04:00 36.6 C 72 18 126/71 97 11/18/19 00:00 36.4 C L 91 H 18 125/64 96
--- NOTE | 2019-11-18 10:46 | Pharmacy Report ---
Glycemic Control Consultation - Date of Service November 18, 2019 - Scope Scope: Glycemic Pharmacist consulted for glycemic control and to write orders per [facility] inpatient glycemic control protocol. - Objective Weight: 76 kg Acctjecks BSG (last 24hrs): 11/17/19 11/17/19 11/17/19 11:44 17:32 20:33 Glucose POC Glucose 168 H 106 H 169 H 11/18/19 11/18/19 11/18/19 00:12 04:05 06:49 Glucose 159 H POC Glucose 222 H 232 H 11/18/19 07:55 Glucose POC Glucose 174 H Laboratory Data (last 24hrs): 11/18/19 06:49 Potassium 4.6 Carbon Dioxide 23 Anion Gap 8.0 Creatinine 1.23 Est Cr Clr Drug Dosing 46.3 - Recent Pertinent Medications Outpatient Anti-diabetic Regimen: * n/a * A1c = 6.2 % 11/01/2019 The patient is currently receiving: * Basal insulin: Lantus 20 units SQ X 1 * Correctional Insulin: Novolog Correction per scale ACHS Goal Range: Low 110 mg/dL - High 140 mg/dL Correction Factor: 20 mg/dL/unit * Prandial insulin: Per carb ratio of 1 unit per 7 grams CHO consumed * Oral Agents: Risk Factors for Insulin Resistance: * Steroids: dexamethasone 10 mg IV q6 hours * Diet: oral - Assessment & Plan Assessment & Plan: ASSESSMENT: * Mr Borjas is a 79 y/o M with a PMH of pre-diabetes (not on oral medications) who presents with spinal cord compression from cancer. * Prior to beginning of dexamethasone, patient was receiving around 10 units/day of Novolog with well controlled blood sugars. * Last night, dexamethasone 10 mg IV q6 hours started -- Lantus 20 units (weight-based stress of 3 half dose) given. Overnight blood sugars added additional 10 units of Novolog. * This morning fasting BSG was 174 mg/dL. Given Lantus 15 units x 1 (weight- based stress of 2 half-dose). Steroids planned at least through the weekend so will load higher doses of Lantus early in steroid course. Scale for tonight with 0-15 units. * Tighten Novolog further to push more bolus insulin for steroid hyperglycemia. PLAN FOR INPATIENT GLYCEMIC CONTROL: * Basal insulin * Lantus 15 units SQ x 1 then 0-15 units tonight (hold if BSG less than 160 mg/dL; 10 units if BSG 160-250 mg/dL; 15 units if BSG greater than 250 mg/dL). * Bolus insulin * NovoLog per scale ACHS or Q6hrs while NPO * Goal Range: Low 110 mg/dL - High 140 mg/dL * Correction Factor: 15 mg/dL/unit * Nutritional / Prandial insulin per carb ratio of 1 unit per 6 grams CHO consumed * Please note that the plan above was derived based on current level of insulin resistance and hospital stress. These recommendations are appropriate for inpatient admission only. Plan of care upon discharge will need to be reassessed to avoid potential outpatient hypo/hyperglycemia. Thank you.
--- NOTE | 2019-11-18 12:06 | Hospitalist Progress Note ---
Date of Service November 18, 2019 Assessment & Plan (1) Spinal cord compression due to malignant neoplasm metastatic to spine: severe mass effect on the cord which is displaced by impinging tumor invasion into this area. Mild cord edema likely-has been on scheduled dexamethasone 10mg IV q6h since last night and some improvement today per patient. Associated severe stenosis of the left T3-T4 and T4-T5 neural foramen on MRI t-spine. surgery is not a great option given poor anchor options after decompression with additional pathologic fractures in the area, poor recovery and healing time in final days, may be away from his family while healing, and this will not allow any XRT therapy. Pt and family opted for him to stay here and start XRT palliative on Wednesday. Cont close monitoring of glucose and intensive insulin therapy while on steroids. (2) Pneumonia: Complete the course with Augmentin. Repeat CXR in 4 weeks to ensure complete resolution. (3) Atypical chest pain: 2/2 bony mets disease in chest and ribs. Pain controlled with opiate therapy. (4) Metastatic disease: Prostate cancer with diffuse metastatic disease present. Palliate as ne eded. Plan for ultimate transition to SNF after getting started with palliative XRT next week. (5) Prostate cancer: Follows with Dr. Gibbs. Regimen includes Lupron and Xgeva. Multifocal osteoblastic metastatic disease re-demonstrated. Very progressed. (6) DMII (diabetes mellitus, type 2): -Hold home agents -SSI while in-patient; he is currently at goal inpatient glucose. Increase sliding scale with steroids on board now. Added glycemic pharmacy consultation. -BSG AC HS (7) Acute worsening of stage 3 chronic kidney disease: resolved to baseline. However, just had MRI contrast this evening. Cont to monitor BMP for changes. (8) DVT prophylaxis: Heparin DNR/DNI Dispo-ultimately SNF with transition to Hospice, however, with new acute cord compression, will stay the weekend on scheduled steroids and start a palliative XRT regimen on Wednesday per Dr. Ashley Gibbs. Krist[facility] and Anticipated Discharge Date Admission Date: November 15, 2019 Subjective He is well this morning some pain in classic chest areas with breathing in 2/2 bony mets reports morphine is controlling pain no BM yet Rogers in place and provided significant relief for him overnight eating well tolerating the steroids blood sugars are at goal we discussed the overall plan again. Review of Systems Review of Systems: All systems reviewed & are unremarkable except as noted in Subjective Physical Exam Physical Exam: CONSTITUTIONAL: thin, frail, vitals as above, generally well- appearing EYES: pupils are round and equal bilaterally, normal conjunctivae, no scleral icterus ENT: external ear and nose normal, oropharynx clear, MMM RESPIRATORY: clear to auscultation bilaterally, no crackles, rales or wheezes, normal respiratory effort CARDIOVASCULAR: regular rate and rhythm, S1 and 2 heard without murmurs, gallops or rubs, no JVD, no peripheral edema GASTROINTESTINAL: normal bowel sounds, soft, nontender, nondistended MUSCULOSKELETAL: Increased ability to wiggle toes and some independent knee bending-very small ROM. No numbness, still has issues with proprioception on right foot but better on left today. 3+patellar reflex bilaterally. Neg babinski. Sensation intact on soles of feet. Unable to walk independently. SKIN: warm and dry NEUROLOGIC: CN 2-12 grossly intact, normal cognition, normal speech. See M/S exam above. PSYCHIATRIC: alert cooperative and oriented to person, place and time. Results & Data Results & Data ([facility]) Vital Signs (Past 12 Hours) Vital Signs Temp Pulse Resp BP Pulse Ox 11/18/19 11:00 36.7 C 91 H 18 123/74 95 11/18/19 07:00 36.6 C 80 20 123/78 97 11/18/19 04:00 36.6 C 72 18 126/71 97 Laboratory Results Short CBC 11/18/19 Range/Units 06:49 WBC 8.38 (4.8-10.8) K/uL Hgb 9.5 L (14.0-18.0) g/dL Hct 30.0 L (42-52) % Plt Count 379 (130-400) K/uL BMP 11/18/19 06:49 Sodium 141 Potassium 4.6 Chloride 110 H Carbon Dioxide 23 BUN 35 H Creatinine 1.23 Glucose 159 H Calcium 7.9 L Medications Administered Current Inpatient Medications Acetaminophen (Acetaminophen 325 Mg Tab) 650 mg PO Q4H PRN PRN Reason: pain/fever Stop: 12/13/19 19:45 Last Admin: 11/16/19 19:47 Dose: 650 mg Documented by: Amoxicillin/Clavulanate Potassium (Amoxicillin/Clavulanate 875 Mg Tab) 1 tab PO BIDM [facility] Stop: 11/20/19 09:39 Last Admin: 11/18/19 09:18 Dose: 1 tab Documented by: Aspirin (Aspirin 81 Mg Ectab) 81 mg PO DAILY [facility] Stop: 12/14/19 08:59 Last Admin: 11/18/19 09:18 Dose: 81 mg Documented by: Atorvastatin Calcium (Atorvastatin 40 Mg Tab) 40 mg PO DAILY [facility] Stop: 12/14/19 08:59 Last Admin: 11/18/19 09:18 Dose: 40 mg Documented by: Dextrose (Dextrose 50% 50 Ml Syringe) 25 - 50 ml IV UD PRN; Protocol PRN Reason: Hypoglycemia Protocol Stop: 12/13/19 19:45 Docusate Sodium (Docusate Sodium 100 Mg Cap) 100 mg PO BID [facility] Stop: 12/13/19 20:59 Last Admin: 11/16/19 20:20 Dose: 100 mg Documented by: Glucagon (Glucagon For Inj 1 Mg Vial) 1 mg SQ UD PRN; Protocol PRN Reason: Hypoglycemia Protocol Stop: 12/13/19 19:45 Glucose (Glucose 10 Tabs/Tube) 4 - 8 tabs PO UD PRN; Protocol PRN Reason: Hypoglycemia Protocol Stop: 12/13/19 19:45 Glucose (Glucose 40% Gel 15 Gm Tube) 15 - 30 gm PO UD PRN; Protocol PRN Reason: Hypoglycemia Protocol Stop: 12/13/19 19:45 Guaifenesin (Guaifenesin 600 Mg Tabcr) 600 mg PO Q12 [facility] Stop: 12/16/19 20:59 Last Admin: 11/18/19 09:18 Dose: 600 mg Documented by: Heparin Sodium (Porcine) (Heparin Sod 5,000 Unit/0.5 Ml Vial) 5,000 units SQ Q8 [facility] Stop: 12/13/19 21:59 Last Admin: 11/18/19 06:23 Dose: 5,000 units Documented by: Hydromorphone HCl (Hydromorphone Hcl 2 Mg Tab) 2 mg PO Q4 PRN PRN Reason: Pain Stop: 11/27/19 19:45 Dexamethasone Sodium Phosphate (10 mg/ Syringe) 2.5 mls @ 1 mls/min IV Q6H [facility] Stop: 12/17/19 20:59 Last Admin: 11/18/19 09:19 Dose: 1 mls/min Documented by: Insulin Aspart (Insulin Aspart 100 Units/Ml 3 Ml Pen) 0 units SC ACHS [facility] Stop: 12/13/19 20:59 Last Admin: 11/18/19 09:20 Dose: 15 units Documented by: Insulin Glargine (Insulin Glargine Solostar 100 Units/Ml 3 Ml Pen) 0 units SC HS [facility]; Protocol Stop: 12/18/19 20:59 Miscellaneous (Carbohydrates For Hypoglycemia ) 15 - 30 gm PO UD PRN PRN Reason: Hypoglycemia Protocol Stop: 12/13/19 19:45 Miscellaneous Information (Pharmacy Glycemic Mgmt Consult) 1 ea N/A UD PRN PRN Reason: Consult Stop: 12/17/19 23:37 Morphine Sulfate (Morphine Sulfate Cr 15 Mg Tabcr) 30 mg PO Q12 [facility] Stop: 11/27/19 20:59 Last Admin: 11/18/19 09:27 Dose: 30 mg Documented by: Multivitamins (Multivitamin Tab) 1 tab PO DAILY [facility] Stop: 12/14/19 08:59 Last Admin: 11/18/19 09:18 Dose: 1 tab Documented by: Multivitamins/Minerals (Calcium 600mg + Vit D 400 Iu Tab) 1 tab PO BID [facility] Stop: 12/13/19 20:59 Last Admin: 11/18/19 09:18 Dose: 1 tab Documented by: Ondansetron HCl (Ondansetron Inj 2 Mg/Ml 2 Ml Vial) 4 mg IV Q6H PRN PRN Reason: Nausea Stop: 12/13/19 19:45 Polyethylene Glycol (Polyethylene (Miralax) 17 Gm Pack) 17 gm PO DAILY PRN PRN Reason: Constipation Stop: 12/13/19 19:45
[2019-11-18] MEDS: ENOXAPARIN INJ 40 MG/0.4 ML SYR SQ SCH (20:54)
[2019-11-18] MEDS ORDERED: INSULIN GLARGINE SOLOSTAR 100 UNITS/ML 3 ML PEN SC SCH (21:00)
[2019-11-19] MEDS: DEXAMETHASONE SOD PHOSPHATE 10 MG in SYRINGE 0 ML IV SCH ×4 (02:55→21:52)
[2019-11-19 06:04] LABS: Hematocrit (blood only) 26.6 % (42-52); Hemoglobin 8.5 g/dL (14.0-18.0); Mean Corpuscular Hemoglobin 28.9 pg (25-34); Mean Corpuscular Volume 90.5 fL (80-100); Mean Platelet Volume 10.7 fL (7.4-10.4); Nucleated RBC # (auto) 0.03 K/uL (0-0); Nucleated RBC % (auto) 0.2 %; Platelet Count 379 K/uL (130-400); RDW Coefficient of Variation 15.6 % (11.5-14.5); RDW Standard Deviation 51.3 fL (36.4-46.3); Red Blood Count 2.94 M/uL (4.7-6.1); White Blood Count 12.99 K/uL (4.8-10.8)
[2019-11-19 06:37] LABS: BUN Creatinine Ratio 32.2 (10-20); Calcium 7.5 mg/dl (8.5-10.1); Creatinine Clr Calc Pharmacy 46.7 ml/min; Est GFR (African American) 65.4; Est GFR (Non-African American) 56.4; Potassium 4.8 mmol/L (3.5-5.1)
[2019-11-19] MEDS: INSULIN ASPART 100 UNITS/ML 3 ML PEN SC SCH ×5 (08:57→23:53)
[2019-11-19] MEDS: MULTIVITAMIN TAB PO SCH (08:58)
[2019-11-19] MEDS: AMOXICILLIN/CLAVULANATE 875 MG TAB PO SCH ×2 (08:58→17:23)
[2019-11-19] MEDS: ATORVASTATIN 40 MG TAB PO SCH (08:58)
[2019-11-19] MEDS: ASPIRIN 81 MG ECTAB PO SCH (08:58)
[2019-11-19] MEDS: INSULIN GLARGINE SOLOSTAR 100 UNITS/ML 3 ML PEN SC SCH (08:59)
[2019-11-19] MEDS: MoRPHine SULFATE CR 15 MG TABCR PO SCH ×2 (09:54→21:52)
[2019-11-19] MEDS: guaiFENesin 600 MG TABCR PO SCH ×2 (10:49→21:52)
[2019-11-19] MEDS: CALCIUM 600MG + VIT D 400 IU TAB PO SCH ×2 (10:49→21:52)
--- NOTE | 2019-11-19 13:49 | Pharmacy Report ---
Glycemic Control Progress Note - Date of Service November 19, 2019 - Scope Glycemic Pharmacist consulted for glycemic control to write orders per [facility] inpatient glycemic control protocol. - Objective Accuchecks BSG(last 24 hours):: 11/18/19 11/18/19 11/19/19 17:21 20:20 05:19 Glucose 194 H POC Glucose 166 H 148 H 11/19/19 11/19/19 08:14 12:02 Glucose POC Glucose 201 H 251 H - Recent Pertinent Medications The patient is currently receiving: * Basal insulin: Lantus 15 units every 24 hours plus scale of Lantus 0-15 units HS * Correctional Insulin: Novolog Correction per scale ACHS Goal Range: Low 110 mg/dL - High 140 mg/dL Correction Factor: 15 mg/dL/unit * Prandial insulin: Per carb ratio of 1 unit per 6 grams CHO consumed - Outpatient Anti-Diabetic Meds N/A - Assessment & Plan ASSESSMENT: * See progress note from 11/18/2019 for more background info, in short: * Pt receiving SQ basal bolus insulin regimen for hyperglycemia secondary to steroids. This is the second day of dexamethasone 10 mg IV q6 hours * Patient is currently receiving an average of 65 units of insulin per day * 15 units of basal insulin * 50 units of prandial/correctional insulin * BSGs ranging 166 - 264 mg/dl over the past 24hrs * Changes needed to insulin regimen: * AM Fasting BSG = 201 mg/dl. This is above goal range for patient based on inpatient targets and co-morbidities. Yesterday, the patient received Lantus 15 units and zero units from the scale. BSG increased 50 points overnight indicating that more basal is needed. Will give 5 more units today and add overnight checks to prevent the need for additional basal insulin. Concern for steroids ending tomorrow (when patient receives radiation) and hypoglycemia afterwards. * Post-prandial BSGs did trend downwards yesterday but elevated today. Tighten carbohydrate ratio. * Total daily dose = ~80 units. Adjusted insulin appropriately. PLAN FOR INPATIENT GLYCEMIC CONTROL: * Increasing Lantus to 20 units SQ AM * Continuing correction factor of 15 mg/dl/unit * TIGHTENING carb ratio to 1 unit per 5 grams CHO consumed * Continuing goal range of Low 110 mg/dL - High 140 mg/dL * Please note that the plan above was derived based on current level of insulin resistance and hospital stress. These recommendations are appropriate for inpatient admission only. Plan of care upon discharge will need to be reassessed to avoid potential outpatient hypo/hyperglycemia. Thank you.
--- NOTE | 2019-11-19 15:46 | Hospitalist Progress Note ---
Date of Service November 19, 2019 Assessment & Plan (1) Spinal cord compression due to malignant neoplasm metastatic to spine: severe mass effect on the cord which is displaced by impinging tumor invasion into this area. Mild cord edema likely-has been on scheduled dexamethasone 10mg IV q6h and some improvement today per patient. Associated severe stenosis of the left T3-T4 and T4-T5 neural foramen on MRI t-spine. surgery is not a great option given poor anchor options after decompression with additional pathologic fractures in the area, poor recovery and healing time in final days, may be away from his family while healing, and this will not allow any XRT therapy. Pt and family opted for him to stay here and start XRT palliative on Wednesday. Cont close monitoring of glucose and intensive insulin therapy while on steroids. (2) Pneumonia: Complete the course with Augmentin. Repeat CXR in 4 weeks to ensure complete resolution. (3) Atypical chest pain: 2/2 bony mets disease in chest and ribs. Pain controlled with opiate therapy. (4) Metastatic disease: Prostate cancer with diffuse metastatic disease present. Palliate as needed. Plan for ultimate transition to SNF after getting started with palliative XRT. (5) Prostate cancer: Follows with Dr. Gibbs. Regimen includes Lupron and Xgeva. Multifocal osteoblastic metastatic disease re-demonstrated. Very progressed. (6) DMII (diabetes mellitus, type 2): -Hold home agents -SSI while in-patient; he is currently at goal inpatient glucose. Increase sliding scale with steroids on board now. Added glycemic pharmacy consultation. -BSG AC HS (7) Acute worsening of stage 3 chronic kidney disease: resolved to baseline. However, just had MRI contrast this evening. Cont to monitor BMP for changes. (8) DVT prophylaxis: Lovenox DNR/DNI Dispo-ultimately SNF with transition to Hospice [facility]ist Admission and Anticipated Discharge Date Admission Date: November 15, 2019 Subjective doing well feeling uplifted with some slight return of function on the steroids. tolerating PO Review of Systems Review of Systems: All systems reviewed & are unremarkable except as noted in Subjective Physical Exam Physical Exam: CONSTITUTIONAL: thin, frail, vitals as above, generally well- appearing EYES: pupils are round and equal bilaterally, normal conjunctivae, no scleral icterus ENT: external ear and nose normal, oropharynx clear, MMM RESPIRATORY: clear to auscultation bilaterally, no crackles, rales or wheezes, normal respiratory effort CARDIOVASCULAR: regular rate and rhythm, S1 and 2 heard without murmurs, gallops or rubs, no JVD, no peripheral edema GASTROINTESTINAL: normal bowel sounds, soft, nontender, nondistended MUSCULOSKELETAL: Increased ability to wiggle toes and some independent knee bending-very small ROM. No numbness, still has issues with proprioception on right foot but better on left today. 3+patellar reflex bilaterally. Neg babinski. Sensation intact on soles of feet. Unable to walk independently. SKIN: warm and dry NEUROLOGIC: CN 2-12 grossly intact, normal cognition, normal speech. See M/S exam above. PSYCHIATRIC: alert cooperative and oriented to person, place and time. Results & Data Results & Data ([facility]) Vital Signs (Past 12 Hours) Vital Signs Temp Pulse Resp BP Pulse Ox 11/19/19 15:16 36.8 C 72 16 134/74 98 11/19/19 07:52 36.8 C 68 18 108/62 96 Laboratory Results Short CBC 11/19/19 Range/Units 05:19 WBC 12.99 H (4.8-10.8) K/uL Hgb 8.5 L (14.0-18.0) g/dL Hct 26.6 L (42-52) % Plt Count 379 (130-400) K/uL BMP 11/19/19 05:19 Sodium 142 Potassium 4.8 Chloride 111 H Carbon Dioxide 23 BUN 39 H Creatinine 1.22 Glucose 194 H Calcium 7.5 L Medications Administered Current Inpatient Medications Acetaminophen (Acetaminophen 325 Mg Tab) 650 mg PO Q4H PRN PRN Reason: pain/fever Stop: 12/13/19 19:45 Last Admin: 11/16/19 19:47 Dose: 650 mg Documented by: Amoxicillin/Clavulanate Potassium (Amoxicillin/Clavulanate 875 Mg Tab) 1 tab PO BIDM [facility] Stop: 11/20/19 09:39 Last Admin: 11/19/19 08:58 Dose: 1 tab Documented by: Aspirin (Aspirin 81 Mg Ectab) 81 mg PO DAILY [facility] Stop: 12/14/19 08:59 Last Admin: 11/19/19 08:58 Dose: 81 mg Documented by: Atorvastatin Calcium (Atorvastatin 40 Mg Tab) 40 mg PO DAILY [facility] Stop: 12/14/19 08:59 Last Admin: 11/19/19 08:58 Dose: 40 mg Documented by: Dextrose (Dextrose 50% 50 Ml Syringe) 25 - 50 ml IV UD PRN; Protocol PRN Reason: Hypoglycemia Protocol Stop: 12/13/19 19:45 Docusate Sodium (Docusate Sodium 100 Mg Cap) 100 mg PO BID [facility] Stop: 12/13/19 20:59 Last Admin: 11/16/19 20:20 Dose: 100 mg Documented by: Enoxaparin Sodium (Enoxaparin Inj 40 Mg/0.4 Ml Syr) 40 mg SQ Q24H [facility] Stop: 12/18/19 13:14 Last Admin: 11/18/19 20:54 Dose: 40 mg Documented by: Glucagon (Glucagon For Inj 1 Mg Vial) 1 mg SQ UD PRN; Protocol PRN Reason: Hypoglycemia Protocol Stop: 12/13/19 19:45 Glucose (Glucose 10 Tabs/Tube) 4 - 8 tabs PO UD PRN; Protocol PRN Reason: Hypoglycemia Protocol Stop: 12/13/19 19:45 Glucose (Glucose 40% Gel 15 Gm Tube) 15 - 30 gm PO UD PRN; Protocol PRN Reason: Hypoglycemia Protocol Stop: 12/13/19 19:45 Guaifenesin (Guaifenesin 600 Mg Tabcr) 600 mg PO Q12 [facility] Stop: 12/16/19 20:59 Last Admin: 11/19/19 10:49 Dose: 600 mg Documented by: Hydromorphone HCl (Hydromorphone Hcl 2 Mg Tab) 2 mg PO Q4 PRN PRN Reason: Pain Stop: 11/27/19 19:45 Dexamethasone Sodium Phosphate (10 mg/ Syringe) 2.5 mls @ 1 mls/min IV Q6H [facility] Stop: 12/17/19 20:59 Last Admin: 11/19/19 14:22 Dose: 1 mls/min Documented by: Insulin Aspart (Insulin Aspart 100 Units/Ml 3 Ml Pen) 0 units SC ACHS [facility] Stop: 12/13/19 20:59 Last Admin: 11/19/19 12:46 Dose: 20 units Documented by: Insulin Aspart (Insulin Aspart 100 Units/Ml 3 Ml Pen) 0 units SC 0000,[id number] [facility] Stop: 11/20/19 04:01 Insulin Glargine (Insulin Glargine Solostar 100 Units/Ml 3 Ml Pen) 20 units SC DAILY [facility] Stop: 12/19/19 08:59 Last Admin: 11/19/19 08:59 Dose: 20 units Documented by: Miscellaneous (Carbohydrates For Hypoglycemia ) 15 - 30 gm PO UD PRN PRN Reason: Hypoglycemia Protocol Stop: 12/13/19 19:45 Miscellaneous Information (Pharmacy Glycemic Mgmt Consult) 1 ea N/A UD PRN PRN Reason: Consult Stop: 12/17/19 23:37 Morphine Sulfate (Morphine Sulfate Cr 15 Mg Tabcr) 30 mg PO Q12 [facility] Stop: 11/27/19 20:59 Last Admin: 11/19/19 09:54 Dose: 30 mg Documented by: Multivitamins (Multivitamin Tab) 1 tab PO DAILY [facility] Stop: 12/14/19 08:59 Last Admin: 11/19/19 08:58 Dose: 1 tab Documented by: Multivitamins/Minerals (Calcium 600mg + Vit D 400 Iu Tab) 1 tab PO BID [facility] Stop: 12/13/19 20:59 Last Admin: 11/19/19 10:49 Dose: 1 tab Documented by: Ondansetron HCl (Ondansetron Inj 2 Mg/Ml 2 Ml Vial) 4 mg IV Q6H PRN PRN Reason: Nausea Stop: 12/13/19 19:45 Polyethylene Glycol (Polyethylene (Miralax) 17 Gm Pack) 17 gm PO DAILY PRN PRN Reason: Constipation Stop: 12/13/19 19:45
[2019-11-19] MEDS: ENOXAPARIN INJ 40 MG/0.4 ML SYR SQ SCH (21:52)
[2019-11-20] MEDS: DEXAMETHASONE SOD PHOSPHATE 10 MG in SYRINGE 0 ML IV SCH (03:05)
[2019-11-20] MEDS: INSULIN ASPART 100 UNITS/ML 3 ML PEN SC SCH ×5 (04:13→21:40)
--- NOTE | 2019-11-20 08:01 | Radiation OncologyConsultation ---
Date of Consultation November 20, 2019 Assessment & Plan (1) Prostate cancer: Assessment: Mr. 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 The patient was admitted to the hospital due to bilateral lower extremity weakness and generalized midthoracic chest pain. Imaging studies did reveal metastatic disease involving thoracic spine with spinal cord compression. The primary medical team did contact neurosurgical services at [facility] and the recommendation was to proceed with pelvic external beam radiation therapy. The patient has been placed on dexamethasone with significant improvement in neurologic symptoms bilaterally in the lower extremities. I am now seen the patient in consultation to discuss the role of radiation therapy. Recommendation: Palliative external beam radiation therapy to the thoracic spine. 10 fractions. 300 cGy per fraction. 3000 cGy. Plan: 1. CT simulation today for treatment planning for radiation therapy. Plan to deliver first fraction of radiation therapy today. 2. Continue on Lupron and Xgeva as per medical oncology. 3. Consider reducing dexamethasone dose to 4 mg 4 times a day to help with agitation. 4. Continue on current pain management protocol. 5. Patient and family encouraged to call us with any further questions or concerns. Rationale/Explanation of Treatment: I have explained the indications, alternatives, benefits, risks and side effects of radiation therapy. I have explained the most common side effects which include but are not limited to skin erythema, skin break down, pulmonary fibrosis, adhesion development, radiation pneumonitis, spinal cord damage, brachial plexus damage, rib fracture, heart failure and heart disease, esophagitis, development of fistula, fatigue and development of secondary malignancy. I have explained the CT simulation process and treatment planning. I explained what to expect before, during and after treatment on a regular basis. The patient understands and would be willing to consent to treatment. The patient had multiple questions which were answered to his full satisfaction. Thank you for allowing us to participate in the care of this patient. This chart was completed in part utilizing [employer] Speech Voice Recognition software. Attempts were made to minimize the grammatical errors, random word insertions, pronoun errors and incomplete sentences. Any formal questions or concerns about the content, text or information contained within the body of this dictation should be directly addressed to the provider for clarification. Magalys Gibbs MD Department of Radiation Oncology [facility] History of Present Illness Attending Physician: Kristine Solano DO History of Present Illness October 2015. Patient has she presented with low back pain to [facility]. 11/12/2015. CT of lumbar spine. Sclerotic lesions involving the lumbar spine. 11/20/2015. PSA. 2611. 01/03/2016. Biopsy of prostate. Prostate adenocarcinoma, Billie 4+4 and Erving 4+5. 01/10/2016. PSA. 2158. 12/2015. Patient has been on Lupron. 01/2016. Patient started on Xgeva. 10/03/2019. Medical oncology follow-up with Dr. Gibbs. Dr. Gibbs has recommended continuation of Lupron and Xgeva. 10/03/2019. PSA. 0.510. 11/13/2019. CT of Chest. IMPRESSION: 1. Airspace consolidation in the left lower lobe is typical for an infectious/inflammatory pneumonitis. Clinical correlation will be required and radiographic follow-up to resolution is recommended. 2. Again seen are changes of multifocal osteoblastic metastatic disease. 3. Mild emphysema. 4. There is ectasia of the ascending thoracic aorta which measures up to 4 cm in diameter. 5. Additional findings as above. 11/14/2019. Patient presents to emergency room and is admitted due to generalized weakness constipation and continue atypical chest pain. 11/17/2019. MRI of Cervical Spine. IMPRESSION: 1. Exam compromised by motion artifact but no intracanalicular mass within the cervical spine. Intracanalicular tumor at the T3-T4 level with cord compression is better depicted on the MRI of the thoracic spine. Please see that report for further description. 2. Multifocal marrow replacement within the cervical and thoracic spine consistent with skeletal metastatic disease. Several mild pathologic fractures within the cervical spine. 3. Moderate multilevel degenerative disc disease and facet arthrosis, as described above. 11/17/2019. MRI of Thoracic Spine. IMPRESSION: 1. Intracanalicular extension of tumor at the T3-T4 level with tumor within the left aspect of the canal at these levels. This results in severe mass effect upon the cord which is displaced rightward. Probable mild cord edema. Surgical or Radiation Oncology consultation is recommended. Associated severe stenosis of the left T3-T4 and T4-T5 neural foramen. This finding will be called/faxed to the ordering provider at time of dictation. 2. Extensive multifocal marrow replacement consistent with skeletal metastatic disease with multiple pathologic fractures within the thoracic and lumbar spines. Since starting on dexamethasone the patient has had increased strength in his bilateral lower and better control of bowel movements. Allergies Allergy/AdvReac Type Severity Reaction Status Date / Time No Known Allergies Allergy Verified 11/02/19 02:21 Home Medications Home Medications Medication Instructions Recorded Confirmed Type atorvastatin [Lipitor] 40 mg PO DAILY 10/31/19 11/13/19 History Xgeva 120 mg SUBCUT USEASDIRECTD 11/01/19 11/13/19 History metformin 1,000 mg PO BID 11/01/19 11/13/19 History docusate sodium 100 mg PO BID PRN #60 cap 11/02/19 11/13/19 Rx aspirin [Aspir-81] 81 mg PO DAILY 11/13/19 11/13/19 History calcium carbonate-vitamin D3 1 tab PO BID 11/13/19 11/13/19 History [Calcium 500 + D (D3)] hydromorphone [Dilaudid] 4 mg PO Q4 PRN 11/13/19 11/13/19 History morphine [MS Contin] 30 mg PO Q12 11/13/19 11/13/19 History multivitamin 1 tab PO DAILY 11/13/19 11/13/19 History Patient History Medical History Atypical chest pain CKD (chronic kidney disease), stage III DMII (diabetes mellitus, type 2) Metastatic disease Palliative care encounter Prostate cancer Surgical History History of carpal tunnel surgery Family History Other Diabetes Social History Smoking Status: Former smoker Tobacco Type: Cigarettes Second Hand Exposure: No; Hx Alcohol Use: No Hx Substance Use: No Preferred Language: Estonian Communication Ability: Effective Unix Manager Required: No Beliefs That Will Affect Care: None marital status: Current Living Situation: Spouse Other Information That Helps Us Care for You: No Feels Safe at Home: Yes Safety Concerns: Feels Safe At This Time Assistive Devices: Glasses Review of Systems Review of Systems: All systems reviewed & are unremarkable except as noted in HPI & below Physical Exam Constitutional: WD/WN, vitals as above well developed and well nourished Eyes: PERRL, conjunctivae normal, anicteric sclerae ENMT: external ear and nose normal, oropharynx normal Neck: trachea midline, no thyromegaly Respiratory: normal respiratory effort, lungs clear to auscultation Cardiovascular: RRR, no murmur, no edema Gastrointestinal (Abdomen): normal bowel sounds, soft, nontender, no hepatosplenomegaly Musculoskeletal: Weakness in bilateral lower extremities. 3-5. Skin: no rashes, warm and dry Neurologic: patellar DTR's 2+ bilat, sensation intact and PERRL, EOMI, accommodation nl, no face palsy, no dysarthria Psychiatric: A+Ox3, euthymic affect Time Spent Attending I spent 15 minutes in preparation for this consultation including reviewing all the clinical records, reviewing laboratory studies, pathology reports and imaging results. I spent 20 minutes with direct face to face interaction with the patient and/or family including performing a physical exam and answering all questions. I spent 15 minutes documenting this patient's visit.
[2019-11-20] MEDS ORDERED: dexAMETHasone 4 MG TAB PO SCH (08:30)
[2019-11-20] MEDS: AMOXICILLIN/CLAVULANATE 875 MG TAB PO SCH (08:31)
[2019-11-20] MEDS: ASPIRIN 81 MG ECTAB PO SCH (08:32)
[2019-11-20] MEDS: ATORVASTATIN 40 MG TAB PO SCH (08:32)
[2019-11-20] MEDS: INSULIN GLARGINE SOLOSTAR 100 UNITS/ML 3 ML PEN SC SCH (08:32)
[2019-11-20] MEDS: guaiFENesin 600 MG TABCR PO SCH ×2 (08:32→21:36)
[2019-11-20] MEDS: CALCIUM 600MG + VIT D 400 IU TAB PO SCH ×2 (08:32→21:36)
[2019-11-20] MEDS: MULTIVITAMIN TAB PO SCH (08:32)
[2019-11-20] MEDS: MoRPHine SULFATE CR 15 MG TABCR PO SCH ×2 (08:42→21:36)
[2019-11-20] MEDS: dexAMETHasone 4 MG TAB PO SCH ×2 (12:00→19:03)
--- NOTE | 2019-11-20 18:21 | Hospitalist Progress Note ---
Date of Service November 20, 2019 Assessment & Plan (1) Spinal cord compression due to malignant neoplasm metastatic to spine: severe mass effect on the cord which is displaced by impinging tumor invasion into this area. Dex 10mg IV q6hrs. Will decrease to 4mg IV q6hrs. Started XRT palliative today. Associated severe stenosis of the left T3-T4 and T4-T5 neural foramen on MRI t-spine. surgery is not a great option given poor anchor options after decompression with additional pathologic fractures in the area, poor recovery and healing time in final days, may be away from his family while healing, and this will not allow any XRT therapy. Pt and family opted for him to stay here and start XRT palliative on Wednesday. Cont close monitoring of glucose and intensive insulin therapy while on steroids. (2) Pneumonia: Completed the course with Augmentin. Repeat CXR in 4 weeks to ensure complete resolution. (3) Atypical chest pain: 2/2 bony mets disease in chest and ribs. Pain controlled with opiate therapy. (4) Metastatic disease: Prostate cancer with diffuse metastatic disease present. Palliate as needed. Plan for ultimate transition to SNF after getting started with palliative XRT today. (5) Prostate cancer: Follows with Dr. Gibbs. Regimen includes Lupron and Xgeva. Multifocal osteoblastic metastatic disease re-demonstrated. Very progressed. (6) DMII (diabetes mellitus, type 2): -Hold home agents -SSI while in-patient; he is currently at goal inpatient glucose. Increase sliding scale with steroids on board now. Added glycemic pharmacy consultation. -BSG AC HS (7) Acute worsening of stage 3 chronic kidney disease: resolved to baseline. Cont to monitor BMP for changes. (8) DVT prophylaxis: Lovenox DNR/DNI Dispo-started XRT today. Will need to transition to SNF that will allow him to continue to travel back and for therapy. Of note, Guillermina (pt granddaughter) was called by three people-[facility] nurse, Dr. Gibbs and myself) today at her request, however, was not able to be reached. Kristine Solano DO [facility] Hospitalist Admission and Anticipated Discharge Date Admission Date: November 15, 2019 Subjective Pt feeling well Starting XRT today some improvement in leg function today and control over bowel movements. Review of Systems Review of Systems: All systems reviewed & are unremarkable except as noted in Subjective Physical Exam Physical Exam: CONSTITUTIONAL: thin, frail, vitals as above, generally well- appearing EYES: pupils are round and equal bilaterally, normal conjunctivae, no scleral icterus ENT: external ear and nose normal, oropharynx clear, MMM RESPIRATORY: clear to auscultation bilaterally, no crackles, rales or wheezes, normal respiratory effort CARDIOVASCULAR: regular rate and rhythm, S1 and 2 heard without murmurs, gallops or rubs, no JVD, no peripheral edema GASTROINTESTINAL: normal bowel sounds, soft, nontender, nondistended MUSCULOSKELETAL: Increased ability to wiggle toes and some independent knee bending. No numbness, proprioception intact on right foot but still has issues with his left foot. 3+patellar reflex bilaterally. Sensation intact on soles of feet. Unable to walk independently. Moves arm without issues. SKIN: warm and dry NEUROLOGIC: CN 2-12 grossly intact, normal cognition, normal speech. See M/S exam above. PSYCHIATRIC: alert cooperative and oriented to person, place and time. Results & Data Results & Data ([facility]) Vital Signs (Past 12 Hours) Vital Signs Temp Pulse Resp BP Pulse Ox 11/20/19 15:20 36.8 C 81 16 155/89 H 97 11/20/19 07:36 37 C 64 16 152/78 H 98 Medications Administered Current Inpatient Medications Acetaminophen (Acetaminophen 325 Mg Tab) 650 mg PO Q4H PRN PRN Reason: pain/fever Stop: 12/13/19 19:45 Last Admin: 11/16/19 19:47 Dose: 650 mg Documented by: Aspirin (Aspirin 81 Mg Ectab) 81 mg PO DAILY [facility] Stop: 12/14/19 08:59 Last Admin: 11/20/19 08:32 Dose: 81 mg Documented by: Atorvastatin Calcium (Atorvastatin 40 Mg Tab) 40 mg PO DAILY [facility] Stop: 12/14/19 08:59 Last Admin: 11/20/19 08:32 Dose: 40 mg Documented by: Dexamethasone (Dexamethasone 4 Mg Tab) 4 mg PO Q6H [facility] Stop: 12/20/19 12:59 Last Admin: 11/20/19 12:00 Dose: 4 mg Documented by: Dextrose (Dextrose 50% 50 Ml Syringe) 25 - 50 ml IV UD PRN; Protocol PRN Reason: Hypoglycemia Protocol Stop: 12/13/19 19:45 Docusate Sodium (Docusate Sodium 100 Mg Cap) 100 mg PO BID [facility] Stop: 12/13/19 20:59 Last Admin: 11/16/19 20:20 Dose: 100 mg Documented by: Enoxaparin Sodium (Enoxaparin Inj 40 Mg/0.4 Ml Syr) 40 mg SQ Q24H [facility] Stop: 12/18/19 13:14 Last Admin: 11/19/19 21:52 Dose: 40 mg Documented by: Glucagon (Glucagon For Inj 1 Mg Vial) 1 mg SQ UD PRN; Protocol PRN Reason: Hypoglycemia Protocol Stop: 12/13/19 19:45 Glucose (Glucose 10 Tabs/Tube) 4 - 8 tabs PO UD PRN; Protocol PRN Reason: Hypoglycemia Protocol Stop: 12/13/19 19:45 Glucose (Glucose 40% Gel 15 Gm Tube) 15 - 30 gm PO UD PRN; Protocol PRN Reason: Hypoglycemia Protocol Stop: 12/13/19 19:45 Guaifenesin (Guaifenesin 600 Mg Tabcr) 600 mg PO Q12 [facility] Stop: 12/16/19 20:59 Last Admin: 11/20/19 08:32 Dose: 600 mg Documented by: Hydromorphone HCl (Hydromorphone Hcl 2 Mg Tab) 2 mg PO Q4 PRN PRN Reason: Pain Stop: 11/27/19 19:45 Insulin Aspart (Insulin Aspart 100 Units/Ml 3 Ml Pen) 0 units SC ACHS [facility]; Protocol Stop: 12/13/19 20:59 Last Admin: 11/20/19 18:08 Dose: 11 units Documented by: Insulin Glargine (Insulin Glargine Solostar 100 Units/Ml 3 Ml Pen) 20 units SC DAILY [facility]; Protocol Stop: 12/19/19 08:59 Last Admin: 11/20/19 08:32 Dose: 20 units Documented by: Miscellaneous (Carbohydrates For Hypoglycemia ) 15 - 30 gm PO UD PRN PRN Reason: Hypoglycemia Protocol Stop: 12/13/19 19:45 Miscellaneous Information (Pharmacy Glycemic Mgmt Consult) 1 ea N/A UD PRN PRN Reason: Consult Stop: 12/17/19 23:37 Morphine Sulfate (Morphine Sulfate Cr 15 Mg Tabcr) 30 mg PO Q12 [facility] Stop: 11/27/19 20:59 Last Admin: 11/20/19 08:42 Dose: 30 mg Documented by: Multivitamins (Multivitamin Tab) 1 tab PO DAILY [facility] Stop: 12/14/19 08:59 Last Admin: 11/20/19 08:32 Dose: 1 tab Documented by: Multivitamins/Minerals (Calcium 600mg + Vit D 400 Iu Tab) 1 tab PO BID [facility] Stop: 12/13/19 20:59 Last Admin: 11/20/19 08:32 Dose: 1 tab Documented by: Ondansetron HCl (Ondansetron Inj 2 Mg/Ml 2 Ml Vial) 4 mg IV Q6H PRN PRN Reason: Nausea Stop: 12/13/19 19:45 Polyethylene Glycol (Polyethylene (Miralax) 17 Gm Pack) 17 gm PO DAILY PRN PRN Reason: Constipation Stop: 12/13/19 19:45
[2019-11-20] MEDS: ENOXAPARIN INJ 40 MG/0.4 ML SYR SQ SCH (21:42)
[2019-11-21] MEDS: dexAMETHasone 4 MG TAB PO SCH ×4 (00:05→18:24)
[2019-11-21 06:30] LABS: Hematocrit (blood only) 31.8 % (42-52); Hemoglobin 9.7 g/dL (14.0-18.0); Mean Corpuscular Hgb Conc 30.5 g/dL (32-36); Mean Corpuscular Volume 91.6 fL (80-100); Mean Platelet Volume 10.5 fL (7.4-10.4); Nucleated RBC # (auto) 0.11 K/uL (0-0); Nucleated RBC % (auto) 0.8 %; Platelet Count 439 K/uL (130-400); RDW Coefficient of Variation 16.1 % (11.5-14.5); RDW Standard Deviation 53.5 fL (36.4-46.3); Red Blood Count 3.47 M/uL (4.7-6.1)
[2019-11-21 06:52] LABS: BUN Creatinine Ratio 33.9 (10-20); Calcium 7.8 mg/dl (8.5-10.1); Est GFR (African American) 66.1; Potassium 5.5 mmol/L (3.5-5.1)
[2019-11-21] MEDS: ASPIRIN 81 MG ECTAB PO SCH ×2 (09:03→11:24)
[2019-11-21] MEDS: ATORVASTATIN 40 MG TAB PO SCH ×2 (09:03→11:23)
[2019-11-21] MEDS: MULTIVITAMIN TAB PO SCH ×2 (09:03→11:21)
[2019-11-21] MEDS: guaiFENesin 600 MG TABCR PO SCH ×2 (09:03→11:24)
[2019-11-21] MEDS: INSULIN GLARGINE SOLOSTAR 100 UNITS/ML 3 ML PEN SC SCH (09:04)
[2019-11-21] MEDS: CALCIUM 600MG + VIT D 400 IU TAB PO SCH ×2 (09:04→11:24)
[2019-11-21] MEDS: INSULIN ASPART 100 UNITS/ML 3 ML PEN SC SCH ×4 (09:05→21:13)
[2019-11-21] MEDS: MoRPHine SULFATE CR 15 MG TABCR PO SCH ×3 (09:10→21:06)
[2019-11-21 11:13] LABS: Creatinine Clr Calc Pharmacy 43.8 ml/min; Est GFR (African American) 60.6; Est GFR (Non-African American) 52.3; Potassium 5.2 mmol/L (3.5-5.1)
[2019-11-21] MEDS: AMLODIPINE BESYLATE 5 MG TAB PO SCH (11:21)
--- NOTE | 2019-11-21 12:36 | Hospitalist Progress Note ---
Date of Service November 21, 2019 Assessment & Plan (1) Spinal cord compression due to malignant neoplasm metastatic to spine: severe mass effect on the cord which is displaced by impinging tumor invasion into this area. Dexamethasone 10 IV q6h over the weekend, de-escalated to 4mg PO q6h. Undergoing palliative XRT since 11/19 and doing well. Pt denies any pain and would like to de-escalate narcotics. MS Contin adjusted to be given qHS. Dispo to SNF when finding one who is willing to transport him to and from XRT. (2) Pneumonia: Completed the course of antibiotics. Repeat CXR in 4 weeks to ensure complete resolution. (3) Atypical chest pain: 2/2 bony mets disease in chest and ribs. Pain controlled with opiate therapy. (4) Metastatic disease: Prostate cancer with diffuse metastatic disease present. Palliate as needed. Plan for ultimate transition to SNF after getting started with palliative XRT. (5) Prostate cancer: Follows with Dr. Gibbs. Regimen includes Lupron and Xgeva. Multifocal osteoblastic metastatic disease re-demonstrated. Very progressed. Palliative XRT as above. (6) DMII (diabetes mellitus, type 2): Have noticed the patient dealing with shot fatigue from excess BSG checks especially overnight. Contacted glycemic pharm and relayed that he is more palliative and we dont need to get this perfect. I am ordering for him to not be disturbed overnight unless it is a safety issue. Pharacist on board. I explained to the nurses he doesn't need to be counseled about eating sugar-free foods and forgo the chocolate ice cream, for example. He should have an unrestricted diet and we will just cover the carbs. Changed to Type I DM diet to accomplish this. (7) Acute worsening of stage 3 chronic kidney disease: resolved to baseline. Cont to monitor BMP for changes. (8) DVT prophylaxis: Lovenox DNR/DNI Dispo-ultimately SNF with [facility] (9) Hyperkalemia: Admission and Anticipated Discharge Date Admission Date: November 15, 2019 Subjective More movement in both legs today cannot walk but is getting more return of function each day. Reports alot of shot fatigue Reports frequent interruptions overnight including extra fingersticks Reports staff telling him he has to restrict his diet to more sugar-free foods. Review of Systems Review of Systems: All systems reviewed & are unremarkable except as noted in Subjective Physical Exam Physical Exam: CONSTITUTIONAL: thin, frail, vitals as above, generally well- appearing EYES: pupils are round and equal bilaterally, normal conjunctivae, no scleral icterus ENT: external ear and nose normal, oropharynx clear, MMM RESPIRATORY: clear to auscultation bilaterally, no crackles, rales or wheezes, normal respiratory effort CARDIOVASCULAR: regular rate and rhythm, S1 and 2 heard without murmurs, gallops or rubs, no JVD, no peripheral edema GASTROINTESTINAL: normal bowel sounds, soft, nontender, nondistended MUSCULOSKELETAL: Increased ability to wiggle toes and some independent knee bending. Improved ROM from yesterday. No numbness. SKIN: warm and dry NEUROLOGIC: CN 2-12 grossly intact, normal cognition, normal speech. PSYCHIATRIC: alert cooperative and oriented to person, place and time. Results & Data Results & Data ([facility]) Vital Signs (Past 12 Hours) Vital Signs Temp Pulse Resp BP Pulse Ox 11/21/19 11:27 76 118/76 11/21/19 07:10 36.6 C 71 16 165/90 H 98 Laboratory Results Short CBC 11/21/19 Range/Units 05:52 WBC 13.80 H (4.8-10.8) K/uL Hgb 9.7 L (14.0-18.0) g/dL Hct 31.8 L (42-52) % Plt Count 439 H (130-400) K/uL BMP 11/21/19 11/21/19 05:52 10:27 Sodium 142 142 Potassium 5.5 H 5.2 H Chloride 113 H 113 H Carbon Dioxide 26 23 BUN 41 H 42 H Creatinine 1.21 1.30 Glucose 185 H 264 H Calcium 7.8 L 8.0 L Medications Administered Current Inpatient Medications Acetaminophen (Acetaminophen 325 Mg Tab) 650 mg PO Q4H PRN PRN Reason: pain/fever Stop: 12/13/19 19:45 Last Admin: 11/16/19 19:47 Dose: 650 mg Documented by: Amlodipine Besylate (Amlodipine Besylate 5 Mg Tab) 10 mg PO QAM [facility] Stop: 12/21/19 10:29 Last Admin: 11/21/19 11:21 Dose: 10 mg Documented by: Aspirin (Aspirin 81 Mg Ectab) 81 mg PO DAILY [facility] Stop: 12/14/19 08:59 Last Admin: 11/21/19 11:24 Dose: 81 mg Documented by: Atorvastatin Calcium (Atorvastatin 40 Mg Tab) 40 mg PO DAILY [facility] Stop: 12/14/19 08:59 Last Admin: 11/21/19 11:23 Dose: 40 mg Documented by: Dexamethasone (Dexamethasone 4 Mg Tab) 4 mg PO Q6H [facility] Stop: 12/20/19 12:59 Last Admin: 11/21/19 12:32 Dose: 4 mg Documented by: Dextrose (Dextrose 50% 50 Ml Syringe) 25 - 50 ml IV UD PRN; Protocol PRN Reason: Hypoglycemia Protocol Stop: 12/13/19 19:45 Enoxaparin Sodium (Enoxaparin Inj 40 Mg/0.4 Ml Syr) 40 mg SQ Q24H [facility] Stop: 12/18/19 13:14 Last Admin: 11/20/19 21:42 Dose: 40 mg Documented by: Glucagon (Glucagon For Inj 1 Mg Vial) 1 mg SQ UD PRN; Protocol PRN Reason: Hypoglycemia Protocol Stop: 12/13/19 19:45 Glucose (Glucose 10 Tabs/Tube) 4 - 8 tabs PO UD PRN; Protocol PRN Reason: Hypoglycemia Protocol Stop: 12/13/19 19:45 Glucose (Glucose 40% Gel 15 Gm Tube) 15 - 30 gm PO UD PRN; Protocol PRN Reason: Hypoglycemia Protocol Stop: 12/13/19 19:45 Hydromorphone HCl (Hydromorphone Hcl 2 Mg Tab) 2 mg PO Q4 PRN PRN Reason: Pain Stop: 11/27/19 19:45 Insulin Aspart (Insulin Aspart 100 Units/Ml 3 Ml Pen) 0 units SC ACHS [facility]; Protocol Stop: 12/13/19 20:59 Last Admin: 11/21/19 12:32 Dose: 29 units Documented by: Insulin Glargine (Insulin Glargine Solostar 100 Units/Ml 3 Ml Pen) 25 units SC DAILY [facility]; Protocol Stop: 12/21/19 08:59 Last Admin: 11/21/19 09:04 Dose: 25 units Documented by: Miscellaneous (Carbohydrates For Hypoglycemia ) 15 - 30 gm PO UD PRN PRN Reason: Hypoglycemia Protocol Stop: 12/13/19 19:45 Miscellaneous Information (Pharmacy Glycemic Mgmt Consult) 1 ea N/A UD PRN PRN Reason: Consult Stop: 12/17/19 23:37 Morphine Sulfate (Morphine Sulfate Cr 15 Mg Tabcr) 30 mg PO Q12 [facility] Stop: 11/27/19 20:59 Last Admin: 11/21/19 11:02 Dose: 30 mg Documented by: Multivitamins (Multivitamin Tab) 1 tab PO DAILY [facility] Stop: 12/14/19 08:59 Last Admin: 11/21/19 11:21 Dose: 1 tab Documented by: Multivitamins/Minerals (Calcium 600mg + Vit D 400 Iu Tab) 1 tab PO BID [facility] Stop: 12/13/19 20:59 Last Admin: 11/21/19 11:24 Dose: 1 tab Documented by: Ondansetron HCl (Ondansetron Inj 2 Mg/Ml 2 Ml Vial) 4 mg IV Q6H PRN PRN Reason: Nausea Stop: 12/13/19 19:45 Polyethylene Glycol (Polyethylene (Miralax) 17 Gm Pack) 17 gm PO DAILY PRN PRN Reason: Constipation Stop: 12/13/19 19:45
--- NOTE | 2019-11-21 15:19 | Pharmacy Report ---
Glycemic Control Progress Note - Date of Service November 21, 2019 - Scope Glycemic Pharmacist consulted for glycemic control to write orders per [facility] inpatient glycemic control protocol. - Objective Accuchecks BSG(last 24 hours):: 11/20/19 11/20/19 11/21/19 17:03 20:29 05:52 Glucose 185 H POC Glucose 150 H 188 H 11/21/19 11/21/19 11/21/19 08:05 10:27 12:10 Glucose 264 H POC Glucose 187 H 233 H - Recent Pertinent Medications The patient is currently receiving: * Basal insulin: Lantus 20 units every 24 hours * Correctional Insulin: Novolog Correction per scale ACHS Goal Range: Low 110 mg/dL - High 140 mg/dL Correction Factor: 12 mg/dL/unit * Prandial insulin: Per carb ratio of 1 unit per 4 grams CHO consumed - Outpatient Anti-Diabetic Meds N/A - Assessment & Plan ASSESSMENT: * See progress note from 11/18/2019 for more background info, in short: * Pt receiving SQ basal bolus insulin regimen for hyperglycemia secondary to baseline DM (outpatient regimen on hold) and steroids (patient currently receiving dexamethasone 4 mg PO q6 hours). * Patient is currently receiving an average of 84 units of insulin per day * 20 units of basal insulin * 64 units of prandial/correctional insulin * BSGs ranging 150 - 188 mg/dl over the past 24hrs * Changes needed to insulin regimen: * AM Fasting BSG = 187 mg/dl. This is slightly above goal range for patient based on inpatient targets and co-morbidities. Therefore Basal insulin will be increased by 20% to 25 units. Add overnight checks. * Post-prandial BSGs were controlled yesterday but are elevated today. Tighten CF/CR * Total daily dose = ~100 units. Increased insulin. PLAN FOR INPATIENT GLYCEMIC CONTROL: * Increasing Lantus to 25 units SQ daily * TIGHTENING correction factor to 10 mg/dl/unit * TIGHTENING carb ratio to 1 unit per 3 grams CHO consumed * Continuing goal range of Low 110 mg/dL - High 140 mg/dL * Please note that the plan above was derived based on current level of insulin resistance and hospital stress. These recommendations are appropriate for inpatient admission only. Plan of care upon discharge will need to be reassessed to avoid potential outpatient hypo/hyperglycemia. Thank you.
[2019-11-21] MEDS: CHOLECALCIFEROL 1,000 UNITS 25 MCG TAB PO SCH (18:34)
[2019-11-21] MEDS: ASCORBIC ACID 500 MG TAB PO SCH (18:34)
[2019-11-21] MEDS: ENOXAPARIN INJ 40 MG/0.4 ML SYR SQ SCH (21:06)
[2019-11-22] MEDS ORDERED: INSULIN ASPART 100 UNITS/ML 3 ML PEN SC SCH
[2019-11-22] MEDS: dexAMETHasone 4 MG TAB PO SCH ×4 (00:27→18:12)
[2019-11-22 07:01] LABS: BUN Creatinine Ratio 31.4 (10-20); Calcium 8.6 mg/dl (8.5-10.1); Creatinine Clr Calc Pharmacy 42.5 ml/min; Est GFR (African American) 58.4; Est GFR (Non-African American) 50.4; Potassium 5.1 mmol/L (3.5-5.1)
[2019-11-22] MEDS: CHOLECALCIFEROL 1,000 UNITS 25 MCG TAB PO SCH (08:51)
[2019-11-22] MEDS: ASCORBIC ACID 500 MG TAB PO SCH (08:51)
[2019-11-22] MEDS: INSULIN GLARGINE SOLOSTAR 100 UNITS/ML 3 ML PEN SC SCH (08:52)
[2019-11-22] MEDS: AMLODIPINE BESYLATE 5 MG TAB PO SCH (08:52)
[2019-11-22] MEDS: INSULIN ASPART 100 UNITS/ML 3 ML PEN SC SCH ×4 (08:52→21:35)
--- NOTE | 2019-11-22 14:02 | Pharmacy Report ---
Glycemic Control Progress Note - Date of Service November 22, 2019 - Scope Glycemic Pharmacist consulted for glycemic control to write orders per [facility] inpatient glycemic control protocol. - Objective Accuchecks BSG(last 24 hours):: 11/21/19 11/21/19 11/22/19 17:06 20:36 05:32 Glucose 132 H POC Glucose 158 H 188 H 11/22/19 11/22/19 08:40 11:56 Glucose POC Glucose 146 H 176 H - Recent Pertinent Medications The patient is currently receiving: * Basal insulin: Lantus 25 units every 24 hours * Correctional Insulin: Novolog Correction per scale ACHS Goal Range: Low 110 mg/dL - High 140 mg/dL Correction Factor: 10 mg/dL/unit * Prandial insulin: Per carb ratio of 1 unit per 3 grams CHO consumed - Outpatient Anti-Diabetic Meds n/a - Assessment & Plan ASSESSMENT: * See progress note from 11/18/2019 for more background info, in short: * Pt receiving SQ basal bolus insulin regimen for hyperglycemia secondary to dexamethasone 4 mg PO q6 hours * Patient is currently receiving an average of 121 units of insulin per day * 25 units of basal insulin * 96 units of prandial/correctional insulin * BSGs ranging 158 - 233 mg/dl over the past 24hrs * Changes needed to insulin regimen: * AM Fasting BSG = 146 mg/dl. This is in goal range for patient based on inpatient targets and co-morbidities. Therefore Basal insulin will be continued at 25 units per day. * Post-prandial BSGs are reasonable but will tighten carbohydrate ratio slightly to keep blood sugars below 200 mg/dL. * Total daily dose = ~130 units. PLAN FOR INPATIENT GLYCEMIC CONTROL: * Continuing Lantus 25 units SQ daily * Continuing correction factor of 10 mg/dl/unit * TIGHTENING carb ratio to 1 unit per 2.5 grams CHO consumed * Continuing goal range of Low 110 mg/dL - High 140 mg/dL * Please note that the plan above was derived based on current level of insulin resistance and hospital stress. These recommendations are appropriate for inpatient admission only. Plan of care upon discharge will need to be reassessed to avoid potential outpatient hypo/hyperglycemia. Thank you.
[2019-11-22] MEDS: ENOXAPARIN INJ 40 MG/0.4 ML SYR SQ SCH (21:32)
[2019-11-22] MEDS: MoRPHine SULFATE CR 15 MG TABCR PO SCH (21:34)
--- NOTE | 2019-11-22 23:07 | Hospitalist Progress Note ---
Date of Service November 22, 2019 Assessment & Plan (1) Spinal cord compression due to malignant neoplasm metastatic to spine: History of metastatic carcinoma of prostate. Presented with lower extremity weakness. MRI demonstrated T3-4 tumor with cord compression and significant mass effect and probable cord edema. Started on dexamethasone. Ortho Spine consulted. [place] that surgical intervention would be challenging and high risk for complications / failure. Radiation Oncology consulted. Course of radiation therapy recommended. Pain well controlled with MS-Contin + hydromorphone for breakthrough pain. Continue dexamethasone. Continue radiation therapy. 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 Followed by Dr. Sandro Gibbs and receiving Lupron and Xgeva. (3) Pneumonia: Admission chest x-ray 11/12 showed LLL density consistent with pneumonia (present on admission). Blood cultures negative. Completed course of antibiotics. (4) Acute kidney injury: History of CKD III with baseline creatinine around 1.3. Creatinine day of admission 1.56 and rk as high as 1.93. LAINA superimposed on CKD III. Creatinine today = 1.34. Follow. (5) Hyperkalemia: K as high as 5.5. Not receiving K supplements or K-elevating meds. Low potassium diet. Follow. 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 Usually well-controlled on metformin. Hgb A1c 6.2 on 11/01/19. Elevated blood sugars secondary to steroid therapy. Hold metformin during hospital stay. Lantus / NovoLog per protocol. FBS today = 146. (7) Do not resuscitate status: Per advanced directives. (8) DVT prophylaxis: High risk for VTE. SQ enoxaparin. (9) Discharge planning issues: Anticipated need for skilled care or inpatient rehab. Case Management consulted. Family Medicine follow-up with Dr. Ford. Medical Oncology follow-up with Dr. Sandro Gibbs. Radiation Oncology follow-up with Dr. Magalys Gibbs. Admission and Anticipated Discharge Date Admission Date: November 15, 2019 Subjective Recheck for spinal cord compression and other problems. Patient seen in their room around 1120. Better. Minimal back pain. Lower extremity strength and sensation improved. Still has Rogers catheter. Review of Systems: Constitutional- no fever. Cardiac- no chest pain. Pulmonary- no cough or SOB. GI- no nausea, vomiting, diarrhea, melena, hematochezia. - as noted above. Otherwise, as noted above. Physical Exam Constitutional: no acute distress Respiratory: no respiratory distress Auscultation: lungs clear to auscultation bilaterally Cardiovascular: Rate/Rhythm: regular rate and regular rhythm Vessels: no JVD Extremities: no calf tenderness and no edema Gastrointestinal (Abdomen): normal bowel sounds, soft, nontender, no hepatosplenomegaly Skin: no rashes, warm and dry Neurologic: strength lower extremities 3-4 / 5 bilaterally Psychiatric: Orientation: alert and oriented x 3 Results & Data Results & Data ([facility]) Vital Signs (Past 12 Hours) Vital Signs Temp Pulse Resp BP Pulse Ox 11/22/19 19:02 36.7 C 100 H 21 147/83 H 97 Laboratory Results - last 24 hr 11/22/19 11/22/19 11/22/19 05:32 08:40 11:56 Sodium 141 Potassium 5.1 Chloride 111 H Carbon Dioxide 24 Anion Gap 6.0 BUN 42 H Creatinine 1.34 Est Cr Clr Drug Dosing 42.5 Est GFR ( Amer) 58.4 Est GFR (Non-Af Amer) 50.4 BUN/Creatinine Ratio 31.4 H Glucose 132 H POC Glucose 146 H 176 H Calcium 8.6 11/22/19 11/22/19 16:22 19:33 Sodium Potassium Chloride Carbon Dioxide Anion Gap BUN Creatinine Est Cr Clr Drug Dosing Est GFR ( Amer) Est GFR (Non-Af Amer) BUN/Creatinine Ratio Glucose POC Glucose 171 H 247 H Calcium
[2019-11-23] MEDS: dexAMETHasone 4 MG TAB PO SCH ×4 (00:29→18:05)
[2019-11-23] MEDS: AMLODIPINE BESYLATE 5 MG TAB PO SCH (09:49)
[2019-11-23] MEDS: ASCORBIC ACID 500 MG TAB PO SCH (09:49)
[2019-11-23] MEDS: CHOLECALCIFEROL 1,000 UNITS 25 MCG TAB PO SCH (09:49)
[2019-11-23] MEDS: INSULIN GLARGINE SOLOSTAR 100 UNITS/ML 3 ML PEN SC SCH (09:50)
[2019-11-23] MEDS: INSULIN ASPART 100 UNITS/ML 3 ML PEN SC SCH ×4 (09:50→22:08)
--- NOTE | 2019-11-23 13:31 | Pharmacy Report ---
Glycemic Control Progress Note - Date of Service November 23, 2019 - Scope Glycemic Pharmacist consulted for glycemic control to write orders per [facility] inpatient glycemic control protocol. - Objective Accuchecks BSG(last 24 hours):: 11/22/19 11/22/19 11/23/19 16:22 19:33 07:52 POC Glucose 171 H 247 H 152 H 11/23/19 12:09 POC Glucose 158 H - Recent Pertinent Medications The patient is currently receiving: * Basal insulin: Lantus 25 units every 24 hours * Correctional Insulin: Novolog Correction per scale ACHS Goal Range: Low 110 mg/dL - High 140 mg/dL Correction Factor: 10 mg/dL/unit * Prandial insulin: Per carb ratio of 1 unit per 2.5 grams CHO consumed - Outpatient Anti-Diabetic Meds metformin - Assessment & Plan ASSESSMENT: * See progress note from 11/18/2019 for more background info, in short: * Pt receiving SQ basal bolus insulin regimen for hyperglycemia secondary to baseline DM (outpatient regimen on hold). Patient is on dexamethasone 4 mg PO q6 hours * Patient is currently receiving an average of 160 units of insulin per day * 25 units of basal insulin * 135 units of prandial/correctional insulin * BSGs ranging 146 - 247 mg/dl over the past 24hrs * Changes needed to insulin regimen: * AM Fasting BSG = 152 mg/dl. This is in goal range for patient based on inpatient targets and co-morbidities. Will increase basal insulin a little since patient may be to tolerate it. * Post-prandial BSGs were decently controlled (all under 180 mg/dL) under bedtime which was 247 mg/dL. Will tighten parameters. * Total daily dose = > 175 units. PLAN FOR INPATIENT GLYCEMIC CONTROL: * Increasing Lantus to 30 units SQ qAM * TIGHTENING correction factor to 8 mg/dl/unit * TIGHTENING carb ratio to 1 unit per 2 grams CHO consumed * Continuing goal range of Low 110 mg/dL - High 140 mg/dL * Please note that the plan above was derived based on current level of insulin resistance and hospital stress. These recommendations are appropriate for inpatient admission only. Plan of care upon discharge will need to be reassessed to avoid potential outpatient hypo/hyperglycemia. Thank you.
--- NOTE | 2019-11-23 21:26 | Hospitalist Progress Note ---
Date of Service November 23, 2019 Assessment & Plan (1) Spinal cord compression due to malignant neoplasm metastatic to spine: History of metastatic carcinoma of prostate. Presented with lower extremity weakness. MRI demonstrated T3-4 tumor with cord compression and significant mass effect an d probable cord edema. Started on dexamethasone. Ortho Spine consulted. [place] that surgical intervention would be challenging and high risk for complications / failure. Radiation Oncology consulted. Course of radiation therapy recommended. Pain well controlled with MS-Contin + hydromorphone for breakthrough pain. Continue dexamethasone. Continue radiation therapy. 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 Followed by Dr. Sandro Gibbs and receiving Lupron and Xgeva. (3) Pneumonia: Admission chest x-ray 11/12 showed LLL density consistent with pneumonia (present on admission). Blood cultures negative. Completed course of antibiotics. (4) Acute kidney injury: History of CKD III with baseline creatinine around 1.3. Creatinine day of admission 1.56 and rk as high as 1.93. LAINA superimposed on CKD III. Creatinine yesterday = 1.34. Follow. (5) Hyperkalemia: K as high as 5.5. Not receiving K supplements or K-elevating meds. Low potassium diet. K yesterday = 5.1. Follow. 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 Usually well-controlled on metformin. Hgb A1c 6.2 on 11/01/19. Elevated blood sugars secondary to steroid therapy. Hold metformin during hospital stay. Lantus / NovoLog per protocol. FBS today = 152. (7) Do not resuscitate status: Per advanced directives. (8) COVID-19 ruled out: SARS-CoV-2 PCR negative on 11/13/19. Repeat testing necessary for transfer to assisted. SARS-CoV-2 PCR negative on 11/23/19. (9) DVT prophylaxis: High risk for VTE. SQ enoxaparin. (10) Discharge planning issues: Anticipated need for skilled care or inpatient rehab. Case Management consulted. Family Medicine follow-up with Dr. Ford. Medical Oncology follow-up with Dr. Sandro Gibbs. Radiation Oncology follow-up with Dr. Magalys Gibbs. Admission and Anticipated Discharge Date Admission Date: November 15, 2019 Subjective Recheck for spinal cord compression and other problems. Patient seen in their room around 0940. Minimal back pain. Lower extremity strength and sensation improved, but still unable to stand independently. Still has Rogers catheter. Review of Systems: Constitutional- no fever. Cardiac- no chest pain. Pulmonary- no cough or SOB. GI- no nausea, vomiting, diarrhea, melena, hematochezia. - as noted above. Otherwise, as noted above. Physical Exam Constitutional: no acute distress Respiratory: no respiratory distress Auscultation: lungs clear to auscultation bilaterally Cardiovascular: Rate/Rhythm: regular rate and regular rhythm Heart Sounds: + murmur (II/ sys murmur at base) Vessels: no JVD Extremities: no calf tenderness and no edema Gastrointestinal (Abdomen): normal bowel sounds, soft, nontender, no hepatosplenomegaly Skin: no rashes, warm and dry Neurologic: Motor/Sensory: + abnormal movement (motor strength lower extremities 3-4/5 bilaterally, proximally and distally) Psychiatric: Orientation: alert and oriented x 3 Results & Data Results & Data ([facility]) Laboratory Results Laboratory Results - last 24 hr 11/23/19 11/23/19 11/23/19 07:52 10:56 10:56 POC Glucose 152 H COVID-19 Eval Order [facility] SARS-CoV-2, RNA, NAAT NEGATIVE 11/23/19 11/23/19 11/23/19 12:09 16:30 20:27 POC Glucose 158 H 139 H 84 COVID-19 Eval Order SARS-CoV-2, RNA, NAAT
[2019-11-23] MEDS: MoRPHine SULFATE CR 15 MG TABCR PO SCH (21:49)
[2019-11-23] MEDS: ENOXAPARIN INJ 40 MG/0.4 ML SYR SQ SCH (21:50)
[2019-11-24] MEDS: dexAMETHasone 4 MG TAB PO SCH ×3 (00:15→12:34)
[2019-11-24 06:50] LABS: BUN Creatinine Ratio 41.2 (10-20); Calcium 8.3 mg/dl (8.5-10.1); Creatinine Clr Calc Pharmacy 43.4 ml/min; Est GFR (Non-African American) 51.8; Potassium 5.2 mmol/L (3.5-5.1)
[2019-11-24 07:18] VITALS: TEMP 97.9; O2SAT 95
[2019-11-24] MEDS: INSULIN ASPART 100 UNITS/ML 3 ML PEN SC SCH ×2 (09:58→12:31)
[2019-11-24] MEDS: INSULIN GLARGINE SOLOSTAR 100 UNITS/ML 3 ML PEN SC SCH (10:04)
[2019-11-24] MEDS: AMLODIPINE BESYLATE 5 MG TAB PO SCH (10:08)
[2019-11-24] MEDS: ASCORBIC ACID 500 MG TAB PO SCH (10:08)
[2019-11-24] MEDS: CHOLECALCIFEROL 1,000 UNITS 25 MCG TAB PO SCH (10:08)
--- NOTE | 2019-11-24 10:09 | Pharmacy Report ---
Pharmacy Glycemic Short Note 2 - Date of Service November 24, 2019 - Glycemic Short BSG Results (Last 24 hours): 11/23/19 11/23/19 11/23/19 12:09 16:30 20:27 Glucose POC Glucose 158 H 139 H 84 11/24/19 11/24/19 05:52 08:04 Glucose 143 H POC Glucose 150 H OUTPATIENT ANTIDIABETIC REGIMEN: * n/a ASSESSMENT: * 79yo "pre-diabetic" based on A1c. Pt with steroid induced hyperglycemia secondary to RTC steroids with dexamethasone 4mg PO Q6hrs for spinal cord compression due to malignant neoplasm metastatic to spine. * Pt has been receiving 160-180 units of insulin per day with adequate control * 30 units of basal with Lantus * 147 units of bolus with NovoLog * This distribution is adequate for steroid induced hyperglycemia as steroids have their most profound effect on post-prandial hyperglycemia. AM fasting BSG is in goal range - no increases needed to basal insulin . Minimal basal insulin needed based on A1c * OK to maintain conservative glycemic control per hospitalist. NO OVERNIGHT BSG checks/coverage should be ordered unless absolutely necessary. Pt is allowed to eat whatever he wants (does not need to be on CHO restricted diet) as long as all snacks/CHO are covered. PLAN FOR INPATIENT GLYCEMIC CONTROL:no changes needed today * Basal insulin * Lantus 30 units SQ daily * Bolus insulin * NovoLog per scale ACHS or Q6hrs while NPO * Goal Range: Low 110 mg/dL - High 140 mg/dL * Correction Factor: 8 mg/dL/unit * Nutritional / Prandial insulin per carb ratio of 1 unit per 2 grams CHO consumed PLAN FOR DISCHARGE: * Will depend on whether steroids are being continued at DC * If no steroids or low dose steroids continued at DC - no antidiabetic regimen needed * If high dose steroids are continued may consider BID NPH vs 70/30 insulin to cover hyperglycemia. Insulin doses will be dependent on steroid dosing
--- NOTE | 2019-11-24 13:41 | Hospitalist Progress Note ---
Date of Service November 24, 2019 Assessment & Plan (1) Spinal cord compression due to malignant neoplasm metastatic to spine: History of metastatic carcinoma of prostate. Presented with lower extremity weakness. MRI demonstrated T3-4 tumor with cord compression and significant mass effect an d probable cord edema. Started on dexamethasone. Ortho Spine consulted. [place] that surgical intervention would be challenging and high risk for complications / failure. Radiation Oncology consulted. Course of radiation therapy recommended. Pain well controlled with MS-Contin + hydromorphone for breakthrough pain. Continue dexamethasone- taper per Oncology. Continue radiation therapy. 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 Followed by Dr. Sandro Gibbs and receiving Lupron and Xgeva. (3) Pneumonia: Admission chest x-ray 11/12 showed LLL density consistent with pneumonia (present on admission). Blood cultures negative. Completed course of antibiotics. (4) Acute kidney injury: History of CKD III with baseline creatinine around 1.3. Creatinine day of admission 1.56 and rk as high as 1.93. LAINA superimposed on CKD III. Creatinine day of discharge = 1.31. Follow. (5) Hyperkalemia: K as high as 5.5. Not receiving K supplements or K-elevating meds. Low potassium diet. K today = 5.2. Follow. 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 Usually well-controlled on metformin. Hgb A1c 6.2 on 11/01/19. Elevated blood sugars secondary to steroid therapy. Hold metformin during hospital stay. Lantus / NovoLog per protocol. FBS day of discharge = 150. Continue Lantus & NovoLog while on dexamethasone. Follow blood sugars and adjust insulin as dexamethasone tapered. (7) Do not resuscitate status: Per advanced directives. (8) COVID-19 ruled out: SARS-CoV-2 PCR negative on 11/13/19. [facility] testing [facility] SARS-CoV-2 PCR negative on 11/23/19. (9) DVT prophylaxis: High risk for VTE. SQ enoxaparin. (10) Discharge planning issues: Needs skilled care. Case Management consulted. Arrangements are being made for transfer to [facility] under care of Dr. Benjamin. Family Medicine follow-up with Dr. Ford. Medical Oncology follow-up with Dr. Sandro Gibbs. Radiation Oncology follow-up with Dr. Magalys Gibbs. Admission and Anticipated Discharge Date Admission Date: November 15, 2019 Subjective Recheck for spinal cord compression and other problems. Patient seen in their room around 1140. Back pain well-controlled. Lower extremity strength and sensation improved, but still unable to stand independently. Rogers cath removed; voiding without difficulty. Review of Systems: Constitutional- no fever. Cardiac- no chest pain. Pulmonary- no cough or SOB. GI- no nausea, vomiting, diarrhea, melena, hematochezia. - as noted above. Otherwise, as noted above. Physical Exam Constitutional: no acute distress Respiratory: no respiratory distress Auscultation: lungs clear to auscultation bilaterally Cardiovascular: Rate/Rhythm: regular rate and regular rhythm Heart Sounds: + murmur (II/ sys murmur at base) Vessels: no JVD Extremities: no calf tenderness and no edema Gastrointestinal (Abdomen): normal bowel sounds, soft, nontender, no hepatosplenomegaly Skin: no rashes, warm and dry Neurologic: Motor/Sensory: + abnormal movement (motor strength lower extremities 3-4/5 bilaterally, proximally and distally) Psychiatric: Orientation: alert and oriented x 3 Results & Data Results & Data ([facility]) Vital Signs (Past 12 Hours) Vital Signs Temp Pulse Resp BP Pulse Ox 11/24/19 07:17 36.6 C 60 14 127/76 95 Laboratory Results Laboratory Results - last 24 hr 11/23/19 11/23/19 11/24/19 16:30 20:27 05:52 Sodium 140 Potassium 5.2 H Chloride 110 H Carbon Dioxide 23 Anion Gap 7.0 BUN 54 H Creatinine 1.31 Est Cr Clr Drug Dosing 43.4 Est GFR ( Amer) 60.0 Est GFR (Non-Af Amer) 51.8 BUN/Creatinine Ratio 41.2 H Glucose 143 H POC Glucose 139 H 84 Calcium 8.3 L 11/24/19 11/24/19 08:04 12:03 Sodium Potassium Chloride Carbon Dioxide Anion Gap BUN Creatinine Est Cr Clr Drug Dosing Est GFR ( Amer) Est GFR (Non-Af Amer) BUN/Creatinine Ratio Glucose POC Glucose 150 H 175 H Calcium
--- NOTE | 2019-11-24 14:24 | Discharge Summary ---
Date of Service Date of Admission: 11/13/19 Date of Discharge: 11/24/19 Admission HPI Per Admitting Provider This is a 79yo M with a PMH of metastatic prostate cancer on Lupron, atypical chest pain, CKD 3, type 2 diabetes and other medical problems listed below who presents from home with generalized weakness. Recently admitted at the beginning of the month for chest pain, that was determined to be due to bony metastasis. Work-up at that time included negative CT of chest for pulmonary embolism, EKG without any ischemic change, negative, echo with normal wall motion. Was evaluated by cardiology and no further cardiac work-up was indicated. Was prescribed 2 mg Dilaudid Q4H PRN related to bony mets and told to follow-up with oncology. Since then, Dilaudid dose increased to 4mg Q4H PRN and MS Contin 30mg Q12H added. Patient states that pain is much better controlled now but feels tired after taking Dilaudid so has not been utilizing as much. Has been feeling generally weaker than usual and unable to provide care for his like he usually does. Did slide off the toilet yesterday due to general weakness. Denies head trauma or LOC. Also endorsing some abdominal bloating and decreased frequency of bowel movements. Last regular sized bowel movement for him was 2 days ago. Also endorsing loose cough but feels like he cannot expectorate sputum due to chest pain from metastasis. No known fever, chills, lightheadedness, visual changes, palpitations, shortness of breath, nausea, vomiting, abdominal pain, dysuria or diarrhea. Principal Diagnosis spinal cord compression T3-T4 due to metastatic carcinoma of prostate OTHER ACUTE / NEW DIAGNOSES: hyperglycemia pneumonia acute kidney injury hyperkalemia Discharge Data Allergies Allergy/AdvReac Type Severity Reaction Status Date / Time No Known Allergies Allergy Verified 11/02/19 02:21 Consultations 11/13/19 15:52 ED Decision to Admit Stat 11/13/19 19:46 Consult Case Management - Discharge Planning Routine 11/16/19 13:08 Consult Palliative Care Routine 11/17/19 19:04 Consult Orthopedic Surgery Stat 11/17/19 19:07 Consult Radiation Oncology Routine Ordered Studies 11/13/19 16:31 CT chest wo con Urgent 11/17/19 14:30 MR cervical spine wo/w con Stat MR thoracic spine wo/w con Stat 11/20/19 CT guide rad therapy chest Routine Hospital Course (1) Spinal cord compression due to malignant neoplasm metastatic to spine: History of metastatic carcinoma of prostate. Presented with lower extremity weakness. MRI demonstrated T3-4 tumor with cord compression and significant mass effect and probable cord edema. Started on dexamethasone. Ortho Spine consulted. [place] that surgical intervention would be challenging and high risk for complications / failure. Radiation Oncology consulted. Course of radiation therapy recommended. Pain well controlled with MS-Contin + hydromorphone for breakthrough pain. Continue dexamethasone- taper per Oncology. Continue radiation therapy. 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 Followed by Dr. Sandro Gibbs and receiving Lupron and Xgeva. (3) Pneumonia: Admission chest x-ray 11/12 showed LLL density consistent with pneumonia (present on admission). Blood cultures negative. Completed course of antibiotics. (4) Acute kidney injury: History of CKD III with baseline creatinine around 1.3. Creatinine day of admission 1.56 and rk as high as 1.93. LAINA superimposed on CKD III. Creatinine day of discharge = 1.31. Follow. (5) Hyperkalemia: K as high as 5.5. Not receiving K supplements or K-elevating meds. Low potassium diet. K today = 5.2. Follow. 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 Usually well-controlled on metformin. Hgb A1c 6.2 on 11/01/19. Elevated blood sugars secondary to steroid therapy. Hold metformin during hospital stay. Lantus / NovoLog per protocol. FBS day of discharge = 150. Continue Lantus & NovoLog while on dexamethasone. Follow blood sugars and adjust insulin as dexamethasone tapered. (7) Do not resuscitate status: Per advanced directives. (8) COVID-19 ruled out: SARS-CoV-2 PCR negative on 11/13/19. Repeat testing necessary for transfer to skilled nursing. SARS-CoV-2 PCR negative on 11/23/19. (9) DVT prophylaxis: High risk for VTE. SQ enoxaparin- continue until ambulatory. (10) Discharge planning issues: Needs skilled care. Case Management consulted. Arrangements are being made for transfer to [facility] under care of Dr. Benjamin. Family Medicine follow-up with Dr. Ford. Medical Oncology follow-up with Dr. Sandro Gibbs. Radiation Oncology follow-up with Dr. Magalys Gibbs. Total Time Total Time Spent Total Time Spent (In Minutes): 45 Discharge Plan Discharge Items Patient Disposition: Transfer Snf Fac Reason For Visit: GENERALIZED WEAKNESS Discharge Diagnosis: spinal cord compression T3-T4 due to metastatic carcinoma of prostate Activity: As commented below Activity Comment: With assistance. Non-emergency contact: Primary Care Provider, Hospitalist and Oncologist Call non-emergency contact if: you have any medication questions Follow-up/Referrals: Dawood Ford MD [Primary Care Provider] - Diet: Carb Consistent or DM2, Heart Healthy and Low Potassium (2gm) Addtl Attending Provider Instructions: Blood sugars before meals and at bedtime. Lantus 30 units every morning. NovoLo units before each meal + sliding scale: < 201 - zero units 201-250 - 5 units 251-300 - 10 units > 300 - 15 units Fall precautions. Skin / heel precautions. Straight cath bladder PRN if unable to void. Please check CBC and basic metabolic profile weekly until stable, then as clinically indicated. Ongoing radiation therapy at [facility] until course of therapy completed. Please coordinate tapering of dexamethasone with Dr. Magalys Gibbs (Radiation Oncology) and/or Dr. Sandro Gibbs (Medical Oncology). Thank you for receiving this patient in transfer. Please call if you have any questions. Jonathan High Pending Studies at Discharge: No Stand-Alone Forms: My [facility] Skilled Items Patient informed of condition?: Yes DNR: Yes Discharge Level of Care: Skilled Communicable Disease: No Discharge Prognosis: Improving Lines: None Urinary Catheter: No Medications and DC Order Prescriptions: New enoxaparin 40 mg/0.4 mL Syringe 40 mg subcut Q24H 30 Days Qty: 12 RF: 0 amlodipine [Norvasc] 5 mg Tablet 10 mg PO QAM 30 Days Qty: 60 RF: 0 hydromorphone 2 mg Tablet 2 mg PO Q4 PRN (Reason: pain) Qty: 10 RF: 0 polyethylene glycol 3350 [Miralax] 17 gram Powder In Packet 17 g PO DAILY PRN (Reason: constipation) Qty: 30 RF: 0 Lantus Solostar U-100 Insulin 100 unit/mL (3 mL) Insulin Pen 30 unit SC DAILY 30 Days Qty: 9 RF: 0 insulin aspart U-100 [Novolog Flexpen U-100 Insulin] 100 unit/mL (3 mL) Insulin Pen See Rx Instructions .ROUTE .COMPLEX Qty: 3 RF: 0 pantoprazole 40 mg tablet,delayed release (DR/EC) 40 mg PO DAILY Qty: 30 RF: 0 morphine [MS Contin] 30 mg tablet extended release 30 mg PO HS Qty: 4 RF: 0 acetaminophen 500 mg tablet 1,000 mg PO Q8H PRN (Reason: fever or pain) Qty: 60 RF: 0 dexamethasone 4 mg Tablet 4 mg PO Q6H 30 Days Qty: 120 RF: 0 ondansetron 4 mg tablet,disintegrating 4 mg PO Q8H PRN (Reason: nausea and vomiting) Qty: 10 RF: 0 Continued atorvastatin [Lipitor] 40 mg Tablet 40 mg PO DAILY RF: 0 Xgeva 120 mg/1.7 mL (70 mg/mL) Solution 120 mg SUBCUT USEASDIRECTD RF: 0 docusate sodium 100 mg Capsule 100 mg PO BID PRN (Reason: constipation) Qty: 60 RF: 0 multivitamin Tablet 1 tab PO DAILY RF: 0 aspirin [Aspir-81] 81 mg Tablet,Delayed Release (Dr/Ec) 81 mg PO DAILY RF: 0 calcium carbonate-vitamin D3 [Calcium 500 + D (D3)] 500 mg(1,250mg) -125 unit Tablet 1 tab PO BID RF: 0 Discontinued metformin 1,000 mg Tablet 1,000 mg PO BID RF: 0 morphine [MS Contin] 30 mg tablet extended release 30 mg PO Q12 RF: 0 hydromorphone [Dilaudid] 4 mg tablet 4 mg PO Q4 PRN (Reason: Pain) RF: 0 Admission Data Admit Date/Time: 11/15/19 17:05 Attending Provider: Jonathan High Admit Provider: Chiki Duran Primary Care Provider: Dawood Ford Other Providers: Chiki Duran ; Maritza Quinn ; [facility] ; [facility] ; Demetri Pedersen ; Magalys Gibbs ; Kristine Solano
[2019-11-24 14:26] VITALS: BP 130/72; PULSE 73
== END 2019-11-24 16:31 | DRG 542 ==
LOC: ED 12:28 → 2N 12:28 → SUATTDRO 15:53 → 2N 19:24 → SUATTDRO 11-15 17:05 → 3W 11-19 03:05
DX: C61 Malignant neoplasm of prostate; K59.03 Drug induced constipation; E11.22 Type 2 diabetes mellitus with diabetic chronic kidney disease; Z79.82 Long term (current) use of aspirin; N18.30 Chronic kidney disease, stage 3 unspecified; T40.2X5A Adverse effect of other opioids, initial encounter; G95.29 Other cord compression; R53.1 Weakness; Z79.899 Other long term (current) drug therapy; N17.9 Acute kidney failure, unspecified; C79.51 Secondary malignant neoplasm of bone; E87.5 Hyperkalemia; J18.9 Pneumonia, unspecified organism; R07.89 Other chest pain; Z79.84 Long term (current) use of oral hypoglycemic drugs; Z66 Do not resuscitate